=== PATIENT | male | born 1935 | race African-American/Black ===

== ENCOUNTER 2016-06-20 18:25 | Emergency (ER) | payer MEDICARE ==
[~2016-06-20] VITALS: Ht 193 cm; Wt 123.0 kg
[~2016-06-20 18:25] MED LIST: AMLO10 PO; ASPI1TAB69 PO; MEDICAL COMPRES1 MIS; NEUR300C PO
[2016-06-20 18:47] VITALS: BP 208/80; PULSE 77; RESP 18; TEMP 97.7; O2SAT 99
--- NOTE | 2016-06-20 19:22 | PD ---
HPI Chief Complaint: Dizziness Time Seen by Provider: 19:01 Travel History International Travel<30 days: No Contact w/Intl Traveler<30days: No Traveled to known affect area: No History of Present Illness HPI This is a 80-year-old man who presents to the emergency department complaining of ankle swelling and dizziness and some fatigue starting yesterday. He is a history of diabetes hypertension and chronic kidney disease anemia. He went saw his primary doctor for the ankle swelling at the end of April. He had an echocardiogram done today which he reports was "excellent". He states that he called the ambulance as a precaution because of ankle swelling and the dizziness and fatigue related to give blood pressure was elevated and told him that he should come to the emergency department. Review of systems is significant for some shortness of breath last night, now gone today. No chest pain. He otherwise has been feeling generally well and healthy. States she has not had blood work in months. History Past Medical History Narrative Medical Type 2 diabetes Hypertension chronic kidney disease Anemia Tetanus Vaccination: > 5 Years Social History Alcohol Use: No Tobacco Use: No Allergies-Medications (Allergen,Severity, Reaction): Coded Allergies: Lisinopril (Verified Allergy, Severe, 06/20/16) Metformin (Verified Allergy, Severe, 06/20/16) Reported Meds & Prescriptions Reported Meds & Active Scripts Active Norvasc (Amlodipine Besylate) 10 Mg Tab 10 Mg PO DAILY Neurontin (Gabapentin) 300 Mg Cap 300 Mg PO TID Medical Compression Elastic Stockings 1 Mis Mis 1 Ea .ROUTE DIRECTED Reported Aspirin 81 Mg Tabdr 81 Mg PO DAILY Review of Systems Except as stated in HPI: all other systems reviewed are Neg Physical Exam Narrative GENERAL: 80-year-old man, no acute distress. SKIN: Warm and dry. HEAD: Atraumatic. Normocephalic. EYES: Pupils equal and round. No scleral icterus. No injection or drainage. ENT: No nasal bleeding or discharge. Mucous membranes pink and moist. NECK: Trachea midline. No JVD. CARDIOVASCULAR: Regular rate and rhythm. No murmur appreciated. RESPIRATORY: No accessory muscle use. Clear to auscultation. Breath sounds equal bilaterally. GASTROINTESTINAL: Abdomen soft, non-tender, nondistended. Hepatic and splenic margins not palpable. MUSCULOSKELETAL: No obvious deformities. Symmetrical large lower extremities with pitting edema about the ankles. I'm not able to palpate the pulses to the edema but the feet are adequately perfused. NEUROLOGICAL: Awake and alert. No obvious cranial nerve deficits. Motor grossly within normal limits. Normal speech. Data Data Last Documented VS Vital Signs Date Time Temp Pulse Resp B/P Pulse Ox O2 Delivery O2 Flow Rate FiO2 06/20/16 21:12 70 20 191/82 95 Room Air 06/20/16 18:47 97.7 Orders Complete Blood Count With Diff (06/20/16 19:11) Comprehensive Metabolic Panel (06/20/16 19:11) Iv Access Insert/Monitor (06/20/16 19:11) Electrocardiogram (06/20/16 ) Chest, Single Ap (06/20/16 ) Potassium, Serum (K) (06/20/16 20:37) Sodium Polysty Sulfate Liq (Kayexalate L (06/20/16 21:45) Furosemide Inj (Lasix Inj) (06/20/16 21:45) Labs Laboratory Tests Test 06/20/16 06/20/16 15:20 20:45 White Blood Count 8.3 TH/MM3 Red Blood Count 3.52 MIL/MM3 Hemoglobin 10.1 GM/DL Hematocrit 31.4 % Mean Corpuscular Volume 89.3 FL Mean Corpuscular Hemoglobin 28.8 PG Mean Corpuscular Hemoglobin 32.2 % Concent Red Cell Distribution Width 17.1 % Platelet Count 226 TH/MM3 Mean Platelet Volume 7.7 FL Neutrophils (%) (Auto) 64.7 % Lymphocytes (%) (Auto) 15.0 % Monocytes (%) (Auto) 8.8 % Eosinophils (%) (Auto) 11.0 % Basophils (%) (Auto) 0.5 % Neutrophils # (Auto) 5.4 TH/MM3 Lymphocytes # (Auto) 1.2 TH/MM3 Monocytes # (Auto) 0.7 TH/MM3 Eosinophils # (Auto) 0.9 TH/MM3 Basophils # (Auto) 0.0 TH/MM3 CBC Comment DIFF FINAL Differential Comment Sodium Level 140 MEQ/L Potassium Level 6.7 MEQ/L 6.4 MEQ/L Chloride Level 113 MEQ/L Carbon Dioxide Level 20.8 MEQ/L Anion Gap 6 MEQ/L Blood Urea Nitrogen 33 MG/DL Creatinine 2.84 MG/DL Estimat Glomerular Filtration 26 ML/MIN Rate Random Glucose 86 MG/DL Calcium Level 8.2 MG/DL Total Bilirubin 0.2 MG/DL Aspartate Amino Transf 28 U/L (AST/SGOT) Alanine Aminotransferase 25 U/L (ALT/SGPT) Alkaline Phosphatase 134 U/L Total Protein 8.8 GM/DL Albumin 3.5 GM/DL [facility] Medical Decision Making Medical Screen Exam Complete: Yes Emergency Medical Condition: Yes Interpretation(s) Review of EKG: Normal sinus rhythm at a rate of 70, normal axis, MS intervals prolonged at 213, no definite evidence of acute ischemia. LABS: CBC remarkable for mild anemia. CMP remarkable for potassium 6.7, bicarbonate 20.8, BUN and creatinine 33/2.84 Chest x-ray: No acute disease. Differential Diagnosis Renal failure, heart failure, lymphedema, volume overload, other Narrative Course Medical decision making INITIAL: 80-year-old with symmetrical reduction of the edema, history of chronic kidney disease, apparently recent negative echo. Looks well. No orthopnea. No other stigmata of heart failure. We'll check renal function, x- ray, reassess. FINAL: 80 year-old man, worsening lower extremity edema, chronic kidney disease , asymptomatic moderately elevated potassium of 6.4. We'll place patient on Kayexalate, Lasix. There is no EKG changes that would suggest significant hyperkalemia. No other symptoms to suggest severe hyperkalemia. Close outpatient follow-up. We'll discuss with the [facility] teaching service. Patient was offered admission for observation for repeat labs in the morning but states that he preferred a go home and follow-up as an outpatient. He states he can come back in 24-48 hours for repeat labs. Diagnosis Primary Impression: Chronic Renal Failure / insufficiency, unspec Additional Impressions: Lower extremity edema Qualified Code: R60.0 - Bilateral edema of lower extremity Hyperkalemia Additional Instructions: Take Lasix and Kayexalate as prescribed. Follow-up in 24-48 hours for repeat blood work. Return to the emergency department for for any weakness, syncope, change in urination, or any other new or worsening symptoms. Med/Other Pt SpecificInfo: Prescription(s) given Scripts Furosemide (Lasix)40 Mg Tab40 Mg PO DAILY 7 Days Ref 0 Prov:Dario Noguera MD 06/20/16 Sodium Polystyrene Sulfonate Liq (Kayexalate Liq)1 Pow Pow15 Gm PO BID 7 Days Ref 0 Prov:Dario Noguera MD 06/20/16 Disposition: 01 DISCHARGE HOME Condition: Stable Dario Noguera MD Jun 20, 2016 19:22
[2016-06-20 19:43] LABS: AUTOMATED NEUTROPHIL # 5.4 TH/MM3 (1.8-7.7); BASOPHIL % 0.5 % (0.0-2.0); EOSINOPHIL # 0.9 TH/MM3 (0-0.4); HEMATOCRIT 31.4 % (39.0-51.0); HEMO FLAGS DIFF FINAL; LYMPHOCYTE # 1.2 TH/MM3 (1.0-4.8); MEAN CELL VOLUME 89.3 FL (80.0-100.0); MEAN CORPUSCULAR HEMOGLOBIN 28.8 PG (27.0-34.0); MEAN CORPUSCULAR HGB CONC 32.2 % (32.0-36.0); MONO % 8.8 % (0.0-8.0); NEUT % 64.7 % (16.0-70.0); PLATELET COUNT 226 TH/MM3 (150-450); RED BLOOD COUNT 3.52 MIL/MM3 (4.50-5.90); RED CELL DISTRIBUTION WIDTH 17.1 % (11.6-17.2); WHITE BLOOD COUNT 8.3 TH/MM3 (4.0-11.0)
--- NOTE | 2016-06-20 20:00 | RADRPT ---
EXAM DATE/TIME: 06/20/2016 19:46 [facility] COMPARISON: CHEST PA & LAT, June 14, 2012, 18:29. INDICATIONS : Patient had symptoms of high blood pressure this afternoon. MEDICAL HISTORY : Hypertension. Diabetes mellitus type II. SURGICAL HISTORY : None. ENCOUNTER: Initial ACUITY: 1 day PAIN SCORE: 0/10 LOCATION: Bilateral Chest FINDINGS: A single view of the chest demonstrates the lungs to be symmetrically aerated without evidence of mas s, infiltrate or effusion. The cardiomediastinal contours are unremarkable. Osseous structures are intact. There are overlying electrocardiogram leads. CONCLUSION: No acute disease. Pk Sepulveda MD on June 20, 2016 at 19:58 Board Certified Radiologist. This report was verified electronically.
[2016-06-20 20:13] LABS: ALKALINE PHOSPHATASE 134 U/L (45-117); ALT (GPT) 25 U/L (12-78); ANION GAP 6 MEQ/L (5-15); AST (GOT) 28 U/L (15-37); BICARBONATE 20.8 MEQ/L (21.0-32.0); BLOOD UREA NITROGEN 33 MG/DL (7-18); CHLORIDE 113 MEQ/L (98-107); GLOMERULAR FILTRATION RATE 26 ML/MIN (>89); SODIUM (NA) 140 MEQ/L (136-145); TOTAL BILIRUBIN ADULT 0.2 MG/DL (0.2-1.0)
[2016-06-20 20:17] LABS: POTASSIUM 6.7 MEQ/L (3.5-5.1)
[2016-06-20 21:12] VITALS: BP 191/82; PULSE 70; RESP 20; O2SAT 95
[2016-06-20] MEDS ORDERED: SODIUM POLYSTYRENE SULFONATE SUSP 15 GM/60 ML CUP PO ONE (21:45)
[2016-06-20] MEDS ORDERED: FUROSEMIDE 40 MG/4 ML VIAL IV PUSH ONE (21:45)
[2016-06-20] MEDS ORDERED: KAYEPOW PO (22:03)
[2016-06-20] MEDS ORDERED: FURO1TAB60 PO (22:03)
[2016-06-20 22:29] VITALS: BP 197/86
--- NOTE | 2016-06-21 17:45 | EKG ---
Date Performed: 06/20/2016 Time Performed: 19:30:02 PTAGE: 80 years EKG: Sinus rhythm WITH FIRST DEGREE AV BLOCK NONSPECIFIC T-WAVE ABNORMALITY When compared to previous tracing, heart r ate has increased. There is significant baseline artifact which makes precise rhythm Diagnosis diffic ult recommend repeat EKG with a clear baseline. ABNORMAL ECG PREVIOUS TRACING : 06/15/2012 05.59 DOCTOR: Aftab Rizvi Interpretating Date/Time 06/21/2016 17:44:09
[2016-06-25] MEDS ORDERED: FURO1TAB60 PO (15:42)
== END 2016-06-20 22:46 | disposition home or self-care (01) ==
LOC: NEPE 18:25
DX: I12.9 Hypertensive chronic kidney disease with stage 1 through stage 4 chronic kidney disease, or unspecified chronic kidney disease (principal); N18.9 Chronic kidney disease, unspecified; R60.0 Localized edema; E87.5 Hyperkalemia; E11.9 Type 2 diabetes mellitus without complications; I44.0 Atrioventricular block, first degree; R94.31 Abnormal electrocardiogram [ECG] [EKG]
CPT/HCPCS: 71010; 80053; 84132; 85025; 93005; 96374; 99284; J1940

== ENCOUNTER → 2016-06-25 | Outpatient (CLI) | payer MEDICARE ==
[~2016-06-25] MED LIST changes: +CALC.25 PO; +CALC500C16 CHEW; +CALC667C PO; +CALG500 PO; +FURO1TAB60 PO; +FURO20TA PO; +GABA100C4 PO; +HYDR25TA35 PO; +KAYEPOW PO; +MAGN400T2 PO; +MAGN400T3 PO; +OSCA200T PO; +POTA20TA5 PO
[2016-06-25 15:07] LABS: BICARBONATE 23.4 MEQ/L (21.0-32.0); POTASSIUM 3.4 MEQ/L (3.5-5.1)
== END ==
LOC: CLAB 14:09
PROVIDERS: ATTEND Family Medicine
DX: E87.5 Hyperkalemia (principal); E87.8 Other disorders of electrolyte and fluid balance, not elsewhere classified; R60.0 Localized edema
CPT/HCPCS: 36415; 80048

== ENCOUNTER 2016-06-27 10:59 | Inpatient (IN) | payer MEDICARE ==
[~2016-06-27] VITALS: Ht 193 cm; Wt 120.0 kg
[~2016-06-27 10:59] MED LIST changes: -CALC.25 PO; -CALC500C16 CHEW; -CALC667C PO; -CALG500 PO; -FURO20TA PO; -GABA100C4 PO; -HYDR25TA35 PO; -KAYEPOW PO; -MAGN400T2 PO; -MAGN400T3 PO; -OSCA200T PO; -POTA20TA5 PO
[2016-06-27 11:10] VITALS: BP 169/68; PULSE 78; RESP 18; TEMP 98.1; O2SAT 98
[2016-06-27] MEDS ORDERED: SODIUM CHLORID 0.9% 500 ML INJ 500 ML IV ONE (11:30)
[2016-06-27] MEDS ORDERED: ONDANSETRON HCL 4 MG/2 ML VIAL IV PUSH ONE (11:30)
[2016-06-27] MEDS ORDERED: SODIUM CHLORIDE 0.9% FLUSH 5 ML FLUSH IVF PRN (11:30)
[2016-06-27] MEDS ORDERED: MORPHINE SULFATE 4 MG/ML INJ IV PUSH ONE (11:30)
--- NOTE | 2016-06-27 11:47 | PD ---
HPI Chief Complaint: General Weakness Time Seen by Provider: 11:34 Travel History International Travel<30 days: No Contact w/Intl Traveler<30days: No Traveled to known affect area: No History of Present Illness HPI Patient comes in complaint of generalized weakness, dizziness, and fall. Patient states he woke up this morning felt week went to walk to the bathroom started feeling dizzy went to sit down on his scooter walker when he missed landing on his right shoulder. Patient is uncertain if he hit his head. Denies any loss of consciousness, chest pain, palpitations, shortness of breath , numbness or tingling anywhere, or abdominal pain. Patient states that he saw his primary care doctor yesterday and was feeling fine, but is not drinking that much fluid as instructed. Patient reports that we will he's had achiness in his right shoulder and since the fall pains become much worse. Pain radiates distally is worse with movement. Patient denies anything making it better other than not moving it. PFSH Past Medical History Autoimmune Disease: No Cancer: No Cardiovascular Problems: No Diabetes: Yes (TYPE 2) Patient Takes Glucophage: No Diminished Hearing: Yes Endocrine: Yes ( STOPPED METAFORMIN LONG TIME AGO) Genitourinary: Yes Hypertension: Yes Immune Disorder: No Musculoskeletal: No Neurologic: No Psychiatric: No Respiratory: No Renal Failure: Yes Past Surgical History Surgical History: No Previous Surgery Social History Alcohol Use: No Tobacco Use: No Substance Use: No Allergies-Medications (Allergen,Severity, Reaction): Coded Allergies: Lisinopril (Verified Allergy, Severe, 06/27/16) Metformin (Verified Allergy, Severe, 06/27/16) Reported Meds & Prescriptions Reported Meds & Active Scripts Active Lasix (Furosemide) 40 Mg Tab 40 Mg PO DAILY Norvasc (Amlodipine Besylate) 10 Mg Tab 10 Mg PO DAILY Neurontin (Gabapentin) 300 Mg Cap 300 Mg PO TID Medical Compression Elastic Stockings 1 Mis Mis 1 Ea .ROUTE DIRECTED Reported Aspirin 81 Mg Tabdr 81 Mg PO DAILY Review of Systems Except as stated in HPI: all other systems reviewed are Neg Physical Exam Narrative GENERAL: Well-developed, overly nourished, in no acute distress, and non-ill appearing. SKIN: Warm and dry. HEAD: Atraumatic. Normocephalic. EYES: Pupils equal and round. EOMI. No scleral icterus. No injection or drainage. ENT: No nasal bleeding or discharge. Mucous membranes pink and moist. NECK: Trachea midline. Supple. No nuclear rigidity. CARDIOVASCULAR: Regular rate and rhythm. No murmur appreciated. Radial pulses 2+ intact bilaterally. RESPIRATORY: No accessory muscle use. No respiratory distress. Clear to auscultation. Breath sounds equal bilaterally. GASTROINTESTINAL: Abdomen soft, non-tender, nondistended. Hepatic and splenic margins not palpable. No pulsatile mass. MUSCULOSKELETAL: Questionable deformity right shoulder for possible dislocation versus fracture versus muscle spasm. No clubbing. No cyanosis. 3+ edema bilateral lower extremity. Decreased range of motion right shoulder secondary to pain. Shoulder: Sensation equal BL deltoid muscles. Pulses equal BL distal to injury. Capillary refill less than 2 seconds distal to injury and equal BL. FROM distal to injury and equal BL. Strength distal to injury equal BL. NV intact distal to injury equal BL. Flexion and extension of thumb equal BL. Equal strength and movement with abduction/adductions of BL fingers. Bottom Finisher strength equal BL. NEUROLOGICAL: Awake and alert. No obvious cranial nerve deficits. Motor grossly within normal limits. Normal speech. PSYCHIATRIC: Appropriate mood and affect; insight and judgment normal. Data Data Last Documented VS Vital Signs Date Time Temp Pulse Resp B/P Pulse Ox O2 Delivery O2 Flow Rate FiO2 06/27/16 12:31 18 96 Room Air 06/27/16 11:10 98.1 78 169/68 Orders Electrocardiogram (06/27/16 11:26) Complete Blood Count With Diff (06/27/16 11:26) Comprehensive Metabolic Panel (06/27/16 11:26) Ckmb (Isoenzyme) Profile (06/27/16 11:26) Troponin I (06/27/16 11:26) Act Partial Throm Time (Ptt) (06/27/16 11:26) Prothrombin Time / Inr (Pt) (06/27/16 11:26) Urinalysis - C+S If Indicated (06/27/16 11:26) Chest, Single Ap (06/27/16 11:26) Ct Brain W/O Iv Contrast(Rout) (06/27/16 11:26) Ct Cerv Spine W/O Contrast (06/27/16 11:26) Ecg Monitoring (06/27/16 11:26) Iv Access Insert/Monitor (06/27/16 11:26) Oximetry (06/27/16 11:26) Sodium Chloride 0.9% Flush (Ns Flush) (06/27/16 11:30) Orthostatic Vital Signs (06/27/16 11:26) Shoulder, Complete (>2vws) (06/27/16 ) Sodium Chlorid 0.9% 500 Ml Inj (Ns 500 M (06/27/16 11:30) Morphine Inj (Morphine Inj) (06/27/16 11:30) Ondansetron Inj (Zofran Inj) (06/27/16 11:30) B-Type Natriuretic Peptide (06/27/16 11:55) Magnesium (Mg) (06/27/16 11:55) CKMB (06/27/16 11:50) CKMB% (06/27/16 11:50) Ns + Kcl 20 Meq Inj (Ns + Kcl 20 Meq Inj (06/27/16 12:45) Calcium Gluconate Inj (Calcium Gluconate (06/27/16 12:45) Consult Vascular Access Team (06/27/16 ) Vascular Poc Ultrasound (06/27/16 ) Support Splint (06/27/16 14:06) Admit Order (Ed Use Only) (06/27/16 14:49) Labs Laboratory Tests Test 06/27/16 06/27/16 11:50 12:45 White Blood Count 15.7 TH/MM3 Red Blood Count 3.26 MIL/MM3 Hemoglobin 9.4 GM/DL Hematocrit 29.6 % Mean Corpuscular Volume 91.0 FL Mean Corpuscular Hemoglobin 29.0 PG Mean Corpuscular Hemoglobin 31.8 % Concent Red Cell Distribution Width 16.5 % Platelet Count 173 TH/MM3 Mean Platelet Volume 8.0 FL Neutrophils (%) (Auto) 78.7 % Lymphocytes (%) (Auto) 5.2 % Monocytes (%) (Auto) 15.5 % Eosinophils (%) (Auto) 0.3 % Basophils (%) (Auto) 0.3 % Neutrophils # (Auto) 12.4 TH/MM3 Lymphocytes # (Auto) 0.8 TH/MM3 Monocytes # (Auto) 2.4 TH/MM3 Eosinophils # (Auto) 0.1 TH/MM3 Basophils # (Auto) 0.0 TH/MM3 CBC Comment AUTO DIFF Differential Comment AUTO DIFF CONFIRMED Platelet Estimate NORMAL Platelet Morphology Comment NORMAL Sodium Level 140 MEQ/L Potassium Level 3.0 MEQ/L Chloride Level 109 MEQ/L Carbon Dioxide Level 17.6 MEQ/L Anion Gap 13 MEQ/L Blood Urea Nitrogen 40 MG/DL Creatinine 3.24 MG/DL Estimat Glomerular Filtration 22 ML/MIN Rate Random Glucose 106 MG/DL Calcium Level 6.8 MG/DL Protein Corrected Calcium 6.6 MG/DL Total Bilirubin 0.5 MG/DL Aspartate Amino Transf 31 U/L (AST/SGOT) Alanine Aminotransferase 24 U/L (ALT/SGPT) Alkaline Phosphatase 83 U/L Total Creatine Kinase 882 U/L Creatine Kinase MB 8.2 NG/ML Creatine Kinase MB % 0.9 % Troponin I LESS THAN 0.02 NG/ML Total Protein 7.7 GM/DL Albumin 3.0 GM/DL Prothrombin Time 12.9 SEC Prothromb Time International 1.2 RATIO Ratio Activated Partial 22.6 SEC Thromboplast Time MDM Medical Decision Making Medical Screen Exam Complete: Yes Emergency Medical Condition: Yes Medical Record Reviewed: Yes Interpretation(s) EKG reviewed by Dr. Dumont, shows sinus rhythm with a ventricular rate of 79. No STEMI. Differential Diagnosis Arrhythmia, acute coronary syndrome, vertigo, electrolyte abnormality, CHF exacerbation, acute on chronic renal failure, dehydration, dislocation, fracture , contusion, other Narrative Course Patient's exam. Initial laboratory neurological status were obtained and reviewed. Discussed patient with Dr. Jimenez, who saw and evaluated the patient and is in agreement with plan of care and disposition. Discussed all findings and plan care of patient, who is agreeable for admission. All questions were answered. Physician Communication Physician Communication [id number] Alejandro, who is agreeable to admit the patient for Dr. Mcgill. Diagnosis Primary Impression: Generalized weakness Additional Impressions: Dizziness Electrolyte abnormality Chronic Renal Failure / insufficiency, unspec Fall Qualified Code: W19.XXXA - Fall, initial encounter Right shoulder pain Qualified Code: M25.511 - Acute pain of right shoulder Admitting Information Admitting Physician Requests: Admit Condition: Stable Juno Quick Jun 27, 2016 11:46
[2016-06-27 12:21] LABS: AUTOMATED NEUTROPHIL # 12.4 TH/MM3 (1.8-7.7); BASOPHIL % 0.3 % (0.0-2.0); EOSINOPHIL # 0.1 TH/MM3 (0-0.4); EOSINOPHIL % 0.3 % (0.0-4.0); HEMATOCRIT 29.6 % (39.0-51.0); LYMPH % 5.2 % (9.0-44.0); LYMPHOCYTE # 0.8 TH/MM3 (1.0-4.8); MEAN CORPUSCULAR HGB CONC 31.8 % (32.0-36.0); MONO % 15.5 % (0.0-8.0); NEUT % 78.7 % (16.0-70.0); PLATELET COUNT 173 TH/MM3 (150-450); RED BLOOD COUNT 3.26 MIL/MM3 (4.50-5.90); RED CELL DISTRIBUTION WIDTH 16.5 % (11.6-17.2); WHITE BLOOD COUNT 15.7 TH/MM3 (4.0-11.0)
[2016-06-27 12:24] LABS: HEMO FLAGS AUTO DIFF
[2016-06-27 12:30] LABS: ALKALINE PHOSPHATASE 83 U/L (45-117); ALT (GPT) 24 U/L (12-78); ANION GAP 13 MEQ/L (5-15); AST (GOT) 31 U/L (15-37); BICARBONATE 17.6 MEQ/L (21.0-32.0); BLOOD UREA NITROGEN 40 MG/DL (7-18); CHLORIDE 109 MEQ/L (98-107); CREATINE KINASE 882 U/L (39-308); GLOMERULAR FILTRATION RATE 22 ML/MIN (>89); SODIUM (NA) 140 MEQ/L (136-145); TOTAL BILIRUBIN ADULT 0.5 MG/DL (0.2-1.0)
[2016-06-27 12:31] VITALS: RESP 18; O2SAT 96
[2016-06-27 12:34] LABS: CALCIUM-PROTEIN CORRECTED 6.6 MG/DL (8.5-10.1)
[2016-06-27] MEDS ORDERED: CALCIUM GLUCONATE INJ 2 GM in DEXTROSE 5% IN WATER 100ML INJ 100 ML IV ONE ×2 (12:45)
[2016-06-27] MEDS ORDERED: NS + KCL 20 MEQ INJ 1,000 ML IV ONE (12:45)
--- NOTE | 2016-06-27 12:49 | RADRPT ---
EXAM DATE/TIME: 06/27/2016 12:09 [facility] COMPARISON: No previous studies available for comparison. INDICATIONS : Woke up dizzy,weak right arm pain patient had a fall today. RADIATION DOSE: 21.25 CTDIvol (mGy) MEDICAL HISTORY : Hypertension. Renal insufficiency. Diabetes mellitus type 1. SURGICAL HISTORY : None. ENCOUNTER: Initial ACUITY: 1 day PAIN SCALE: 3/10 LOCATION: Right shoulder TECHNIQUE: Volumetric scanning of the cervical spine was performed. Multiplanar reconstructions i n the sagittal, coronal and oblique axial planes were performed. Using automated exposure control a nd adjustment of the mA and/or kV according to patient size, radiation dose was kept as low as reason ably achievable to obtain optimal diagnostic quality images. FINDINGS: Alignment: Reversal of normal lordosis is noted. The craniocervical and cervical vertebral body alignment is oth erwise well preserved without evidence of listhesis. Osseous structures and facet joints: Vertebral bodies and posterior elements are intact. There is no evidence of acute fracture or subluxa tion. Intervertebral disc spaces: Degenerative disc disease ranging from mild to moderate is identified. C2-3: Unremarkable. C3-4: Mild degenerative disc disease with posterior central disc protrusion causing mild to moderate epidural effacement and central spinal stenosis. Focal calcification is seen along the posterior edward clyde indicating chronic disease. C4-5: Mild/moderate degenerative disc disease with posterior disc osteophyte complex. There is mild i ntradural effacement. There is no significant spinal stenosis. C5-6: Moderate degenerative disc disease with marginal spondylosis and mild posterior annular broad-b ased protrusion. There is [id number] epidural effacement and mild spinal stenosis. C6-7: Moderate degenerative disc disease with asymmetric disc space narrowing and marginal spondylosi s. There is no evidence of significant epidural effacement or disc herniation. C7-T1: Unremarkable. Neurologic structures: Anterior epidural effacement at C3-4 and C5-6 resulting in mild spinal stenosis. Otherwise no significant compression of the spinal cord. CONCLUSION: Degenerative disc disease with spondylosis at C3-4, C4-5, C5-6 and C6-7. Mild spinal stenosis C3-4 and C5-6 from marginal spurring and mild disc protrusion. No acute abnormalities noted. Sam Leal MD on June 27, 2016 at 12:40 Board Certified Radiologist. This report was verified electronically.
--- NOTE | 2016-06-27 12:53 | RADRPT ---
EXAM DATE/TIME: 06/27/2016 12:09 [facility] COMPARISON: No previous studies available for comparison. INDICATIONS : Paitient woke up weak and dizzy right arm pain,paitent fell today. RADIATION DOSE: 41.62 CTDIvol (mGy) MEDICAL HISTORY : Hypertension. Renal failure, chronic. Diabetes SURGICAL HISTORY : None. ENCOUNTER: Initial ACUITY: 1 day PAIN SCALE: 3/10 LOCATION: cranial TECHNIQUE: Multiple contiguous axial images were obtained of the head. Using automated exposure control and adjustment of the mA and/or kV according to patient size, radiation dose was kept as low as reasonably achievable to obtain optimal diagnostic quality images. FINDINGS: CEREBRUM: The ventricles are normal for age. No evidence of midline shift, mass lesion, hemorrha ge or acute infarction. No extra-axial fluid collections are seen. POSTERIOR FOSSA: The cerebellum and brainstem are intact. The 4th ventricle is midline. The cer ebellopontine angle is unremarkable. EXTRACRANIAL: The visualized portion of the orbits is intact. SKULL: The calvaria is intact. No evidence of skull fracture. CONCLUSION: Negative for an acute process Jovani Virgen MD FACR on June 27, 2016 at 12:48 Board Certified Radiologist. This report was verified electronically.
[2016-06-27 12:55] LABS: CKMB 8.2 NG/ML (0.5-3.6)
[2016-06-27 13:00] LABS: PLATELET ESTIMATE SMEAR NORMAL (NORMAL); PLATELET MORPHOLOGY NORMAL (NORMAL); SCAN/DIFF AUTO DIFF CONFIRMED
[2016-06-27 13:00] LABS: APTT (PATIENT) 22.6 SEC (24.3-30.1); INTERNATIONAL NORMALIZED RATIO 1.2 RATIO; PROTHROMBIN TIME - PATIENT 12.9 SEC (9.8-11.6)
--- NOTE | 2016-06-27 14:01 | RADRPT ---
EXAM DATE/TIME: 06/27/2016 13:37 [facility] COMPARISON: CHEST SINGLE AP, June 20, 2016, 19:46. INDICATIONS : Syncope. MEDICAL HISTORY : None. SURGICAL HISTORY : None. ENCOUNTER: Initial ACUITY: 1 day PAIN SCORE: 0/10 LOCATION: Bilateral chest FINDINGS: A single view of the chest demonstrates the lungs to be symmetrically aerated without evidence of mas s, infiltrate or effusion. The cardiomediastinal contours are unremarkable. Osseous structures are intact. CONCLUSION: No acute disease. Jovani Virgen MD FACR on June 27, 2016 at 14:00 Board Certified Radiologist. This report was verified electronically.
--- NOTE | 2016-06-27 14:04 | RADRPT ---
EXAM DATE/TIME: 06/27/2016 13:40 [facility] COMPARISON: No previous studies available for comparison. INDICATIONS : Right shoulder pain after fall. MEDICAL HISTORY : Hypertension. Diabetes mellitus type II. SURGICAL HISTORY : None. ENCOUNTER: Initial ACUITY: 1 day PAIN SCORE: 4/10 LOCATION: Right Shoulder. FINDINGS: There are degenerative changes evident at the acromioclavicular joint. There is mild subacromial spu rring present. Alignment is anatomic. Fractures are appreciated. CONCLUSION: Degenerative changes. Fracture is not appreciated. Jovani Virgen MD FACR on June 27, 2016 at 14:00 Board Certified Radiologist. This report was verified electronically.
--- NOTE | 2016-06-27 16:07 | HHI.HP ---
[facility] Service Family Medicine Primary Care Physician Debbie Cevallos R1 MD Javon Admission Diagnosis generalized weakness, dizziness, electrolyte abnormality, Diagnoses: International Travel<30 Days: No Contact w/Intl Traveler<30days: No Known Affected Area: No History of Present Illness Pt is a 80 yo man with a h/o CKD, hyperkalemia, and BL LE edema, who was in his normal state of health until yesterday afternoon when he started to "feel funny. " Pt laid down and went to sleep. He got up in the morning to go to the bathroom. As he was transferring from bed to standing, he felt lightheaded, presyncopal. As he was walking to the bathroom, he stumbled and fell on/over a chair. He reports that his legs felt weak, like he lost control of them. As a result, he couldn't get up. Fell on right arm, which currently hurts. He reports that he was down on the ground for 45 minutes until he was able to crawl to phone and call 911. He has never experienced anything like this before. Pt denies any muscle spasms, syncope, seizure, fever, dysuria, cough, skin breakdown. He endorses fatigue. Pt denies blood in urine, but endorses a weak urine stream. Pt reports 6 months of LE swelling, which is mostly staying the same. (Pk Gallagher MD R1) Review of Systems Constitutional: COMPLAINS OF: Fatigue, Chills (cold all the time for about a year. ), Dizziness (little with standing. ), DENIES: Fever Eyes: COMPLAINS OF: Blurred vision Ears, nose, mouth, throat: DENIES: Nasal discharge, Throat pain Respiratory: DENIES: Cough, Shortness of breath Cardiovascular: COMPLAINS OF: Dyspnea on Exertion (doesn't walk much), Lower Extremity Edema, DENIES: Chest pain (occasional tightness), Palpitations, Syncope, PND, Orthopnea Gastrointestinal: DENIES: Abdominal pain, Black stools, Bloody stools, Constipation, Diarrhea, Nausea, Vomiting Genitourinary: DENIES: Hematuria, Dysuria Musculoskeletal: COMPLAINS OF: Muscle aches (right arm), DENIES: Joint pain Integumentary: DENIES: Rash (dry scaling skin on lateral legs) Neurologic: COMPLAINS OF: Localized weakness (both legs with walking), DENIES : Headache, Seizures, Tremor (Pk Gallagher MD R1) Past Family Social History Past Medical History - HTN - well controlled - T2DM - well controlled - idiopathic CKD diagnosed about 4 years ago - no lead architect. - Anemia Past Surgical History Pt denies any previous surgeries Reported Medications Reported Meds & Active Scripts Active Lasix (Furosemide) 40 Mg Tab 40 Mg PO DAILY Norvasc (Amlodipine Besylate) 10 Mg Tab 10 Mg PO DAILY been taking for 2-3 years. Neurontin (Gabapentin) 300 Mg Cap 300 Mg PO TID Medical Compression Elastic Stockings 1 Mis Mis 1 Ea .ROUTE DIRECTED Reported Aspirin 81 Mg Tabdr 81 Mg PO DAILY (Pk Gallagher MD R1) Allergies: Coded Allergies: Lisinopril (Verified Allergy, Severe, 06/27/16) Metformin (Verified Allergy, Severe, 06/27/16) Active Ordered Medications Current Medications Medications (Trade) Dose Ordered Sig/Carol Route Start Time Stop Time Status Last Admin (NS Flush) 2 ml UNSCH PRN FLUSH 06/27/16 16:45 (NS Flush) 2 ml BID FLUSH 06/27/16 21:00 06/27/16 20:56 (Tylenol) 650 mg Q4H PRN PO 06/27/16 16:45 (Zofran Inj) 4 mg Q6H PRN IVP 06/27/16 16:45 (Milk Of Magnesia Liq) 30 ml Q12H PRN PO 06/27/16 16:45 (Heparin Inj) 5,000 units Q12H SQ 06/27/16 17:00 06/27/16 18:44 (Narcan Inj) 0.4 mg UNSCH PRN IV 06/27/16 16:45 (Ecotrin Ec) 81 mg DAILY PO 06/28/16 09:00 (D50w (Vial) Inj) 25 ml UNSCH PRN IV PUSH 06/27/16 17:00 (Glucagon Inj) 1 mg UNSCH PRN OTHER 06/27/16 17:00 (Catapres) 0.1 mg Q6H PRN PO 06/27/16 17:00 (Calcium Gluconate) 500 mg DAILY PO 06/28/16 09:00 Family History Pt reports that his parents from old age Social History Pt lives at home alone. Originally from [place]. 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 Smoked about 1ppd of cigarettes for about 10 yrs about 50 years ago. Denies current tobacco use, alcohol, or illicit drug use. (Pk Gallagher MD R1) Physical Exam Vital Signs Vital Signs Date Time Temp Pulse Resp B/P Pulse Ox O2 Delivery O2 Flow Rate FiO2 06/27/16 12:31 18 96 Room Air 06/27/16 11:19 97 Room Air 06/27/16 11:10 98.1 78 18 169/68 98 Physical Exam GENERAL: male lying in bed in NAD. SKIN: hyperkeratotic hyperpigmented lesions present over knuckles of both hands , and on lateral aspect of bilateral lower extremities HEAD: Atraumatic. Normocephalic. EYES: Pupils equal round and reactive. Extraocular motions intact. No scleral icterus. No injection or drainage. ENT: + Tongue fasciculations. MMM. poor dentition. no erythema noted. Airway patent. NECK: Trachea midline. Supple, nontender, no meningeal signs. No thyromegaly appreciated. CARDIOVASCULAR: Regular rate and rhythm without murmurs, gallops, or rubs. No JVD. RESPIRATORY: Symmetric, unlabored respirations. Clear to auscultation. Breath sounds equal bilaterally. No wheezes, rales, or rhonchi. GASTROINTESTINAL: Abdomen soft, non-tender, nondistended. MUSCULOSKELETAL: 2+ non pitting edema to knees of bilateral lower extremities. No foot ulcers. Skin findings as above. NEUROLOGICAL: Awake and alert. CN's intact. No pronator drift. Finger to nose test within normal limits. Motor and sensory within normal limits. 5/5 UE strength, 4/5 strength of hip flexors. Follows commands. Cognitively sharp. Moves all extremities. Negative Chvostek's sign. Laboratory Laboratory Tests Test 06/27/16 06/27/16 11:50 12:45 White Blood Count 15.7 Red Blood Count 3.26 Hemoglobin 9.4 Hematocrit 29.6 Mean Corpuscular Volume 91.0 Mean Corpuscular Hemoglobin 29.0 Mean Corpuscular Hemoglobin 31.8 Concent Red Cell Distribution Width 16.5 Platelet Count 173 Mean Platelet Volume 8.0 Neutrophils (%) (Auto) 78.7 Lymphocytes (%) (Auto) 5.2 Monocytes (%) (Auto) 15.5 Eosinophils (%) (Auto) 0.3 Basophils (%) (Auto) 0.3 Neutrophils # (Auto) 12.4 Lymphocytes # (Auto) 0.8 Monocytes # (Auto) 2.4 Eosinophils # (Auto) 0.1 Basophils # (Auto) 0.0 CBC Comment AUTO DIFF Differential Comment AUTO DIFF CONFIRMED Platelet Estimate NORMAL Platelet Morphology Comment NORMAL Sodium Level 140 Potassium Level 3.0 Chloride Level 109 Carbon Dioxide Level 17.6 Anion Gap 13 Blood Urea Nitrogen 40 Creatinine 3.24 Estimat Glomerular Filtration 22 Rate Random Glucose 106 Calcium Level 6.8 Protein Corrected Calcium 6.6 Total Bilirubin 0.5 Aspartate Amino Transf 31 (AST/SGOT) Alanine Aminotransferase 24 (ALT/SGPT) Alkaline Phosphatase 83 Total Creatine Kinase 882 Creatine Kinase MB 8.2 Creatine Kinase MB % 0.9 Troponin I LESS THAN 0.02 Total Protein 7.7 Albumin 3.0 Prothrombin Time 12.9 Prothromb Time International 1.2 Ratio Activated Partial 22.6 Thromboplast Time (Pk Gallagher MD R1) Result Diagram: 06/27/16 1150 06/27/16 1150 Imaging Last Impressions Head CT 06/27/16 1126 Signed Impressions: Service Date/Time: Monday, June 27, 2016 12:09 - CONCLUSION: Negative for an acute process Jovani Virgen MD FACR Chest X-Ray 06/27/16 1126 Signed Impressions: Service Date/Time: Monday, June 27, 2016 13:37 - CONCLUSION: No acute disease. 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 Mild spinal stenosis C3-4 and C5-6 from marginal spurring and mild disc protrusion. No acute abnormalities noted. Sam Leal MD Shoulder X-Ray 06/27/16 0000 Signed Impressions: Service Date/Time: Monday, June 27, 2016 13:40 - CONCLUSION: Degenerative changes. Fracture is not appreciated. Jovani Virgen MD FACR Course In the emergency department, patient received Zofran 4 mg IV push 1, morphine 2 mg IV push 1, normal saline IV bolus 1, shoulder x-ray, Ortho-Cyclen vital signs, CT cervical spine without contrast, CT brain without contrast, chest x- ray, UA, PT/INR, APTT, troponin, CK-MB, CMP, CBC, EKG, magnesium, BNP, calcium gluconate 2 g IV 1, normal saline plus KCl 20 mEq IV 1, IV access by vascular access team, support sling for right arm (Pk Gallagher MD R1) Assessment and Plan Assessment and Plan 80-year-old man with a history of chronic kidney disease presents with generalized weakness and labs concerning for electrolyte abnormalities. Will place in observation for electrolyte repletion and nephrology consult and cardiac workup. Code Status Full code Discussed Condition With Patient seen and discussed with Dr. Sandoval. (Pk Gallagher MD R1) Attending Attestation THIS CASE WAS DISCUSSED WITH THE RESIDENT PHYSICIAN. I HAVE REVIEWED THE RECORD AND AGREE WITH THE ABOVE NOTE AND PLAN OF CARE WAS DISCUSSED. I HAVE AUTHORIZED THE ORDER FOR PLACEMENT IN OUT-PATIENT OBSERVATION STATUS. (Thomas Mcgill MD) Problem List: (1) Generalized weakness Status: Acute Plan: 80-year-old male with a history of chronic kidney disease presents with generalized weakness and electrolyte abnormalities. Patient has potassium of 3.0 , calcium of 6.8, protein corrected calcium is 6.6, magnesium of 1.4. Patient received calcium gluconate 2 g IV 1 and normal saline plus KCl 20 mEq IV 1 in the emergency department. Placement observation Consult nephrology Renal diet Orthostatic vital signs Monitor vital signs athletic monitor/telemetry Look for signs of infection including UA and CXR BNP, CBC, CMP, magnesium, PTH, 1, 25 dihydroxy vitamin D Calcium gluconate 500 mg by mouth daily Magnesium oxide 400 mg by mouth 1 Symptom control: Zofran 4 mg IV push every 6 hours when necessary for nausea or vomiting Tylenol 650 mg by mouth every 4 hours when necessary for pain, fever, irritability Magnesium hydroxide, milk of magnesia 30 mL by mouth every 12 hours when necessary for constipation (2) Chronic Renal Failure / insufficiency, unspec Status: Chronic Plan: Patient with a history of CKD has never seen a lead architect. Currently presenting with electrolyte abnormalities likely causing generalized weakness. Nephrology consult (3) Leg edema Status: Acute Plan: Patient presented 6 months of lower extremity edema. Echocardiogram Holding home amlodipine (4) Essential hypertension Status: Chronic Plan: Patient on blood pressure medication for the past few years. Holding home amlodipine because of lower extremity edema Holding home Lasix because patient likely dehydrated and because this medication is potentially nephrotoxic Clonidine 0.1 mg by mouth every 6 hours when necessary for blood pressure over 160/90 (5) Diabetes mellitus type 2 in nonobese Status: Chronic Plan: Patient reports a history of diabetes but is not on any home medications to control his blood sugar. Holding home gabapentin because the serum concentration of this medication can become elevated and chronic kidney disease, and the most common adverse effect of this medication is LINING BRUSHER dizziness, drowsiness, ataxia, fatigue and second most common adverse effect is peripheral edema (6) Nutrition, metabolism, and development symptoms Status: Acute Plan: Fluids: Patient received calcium gluconate 2 g IV 1 and normal saline plus KCl 20 mEq IV 1 in the emergency department. Electrolytes: Monitor and replete as above Nutrition: Renal diet (7) No contraindication to deep vein thrombosis (DVT) prophylaxis Status: Acute Plan: Heparin 5000 units subcutaneous every 12 hours (Pk Gallagher MD R1) Pk Gallagher MD R1 Jun 27, 2016 16:07 Thomas Mcgill MD Jun 28, 2016 11:49
[2016-06-27] MEDS ORDERED: MAGNESIUM HYDROXIDE SUSP 30 ML CUP PO PRN (16:45)
[2016-06-27] MEDS ORDERED: ONDANSETRON HCL 4 MG/2 ML VIAL IVP PRN (16:45)
[2016-06-27] MEDS ORDERED: ACETAMINOPHEN 325 MG TAB PO PRN (16:45)
[2016-06-27] MEDS ORDERED: NALOXONE HCL 0.4 MG/ML AMP IV PRN (16:45)
[2016-06-27] MEDS ORDERED: SODIUM CHLORIDE 0.9% FLUSH 5 ML FLUSH FLUSH PRN (16:45)
[2016-06-27] MEDS ORDERED: cloNIDine HCL 0.1 MG TAB PO PRN (17:00)
[2016-06-27] MEDS ORDERED: GLUCAGON 1 MG/ML VIAL OTHER PRN (17:00)
[2016-06-27] MEDS ORDERED: MAGNESIUM OXIDE 400 MG TAB PO ONE (17:00)
[2016-06-27] MEDS ORDERED: DEXTROSE 50% IN WATER 50 ML VIAL(D50) IV PUSH PRN (17:00)
--- NOTE | 2016-06-27 17:10 | PD ---
Physical Exam Date Seen by Provider: Jun 27, 2016 Time Seen by Provider: 15:00 Narrative I, Dr. Jimenez, have reviewed the advance practice practitioner's documentation and am in agreement, met with the patient face to face, made the diagnosis, and the medical decision making was done by me. *My assessment and Findings: Patient seen and evaluated with PA, please see PA for further information. Patient appears to be doing badly at home, frequent falls, fell on his shoulder today, complaining of right shoulder pain. On exam , he appears to be fatigued, bilateral leg swelling, tender to palpation in the right shoulder with decreased range of motion of the right shoulder. Pulmonary and cardiac exam unremarkable. X-rays and CAT scans did not reveal any signs of acute injuries. Lab work shows significant electrolyte abnormalities. At this point, patient is doing poorly at home, feeling to thrive, planning to admit for further treatment. IV Flagyl at placement was ordered for the patient. Case is discussed with family practice residents for admission. Laboratory Tests Test 06/27/16 06/27/16 11:50 12:45 White Blood Count 15.7 TH/MM3 (4.0-11.0) Red Blood Count 3.26 MIL/MM3 (4.50-5.90) Hemoglobin 9.4 GM/DL (13.0-17.0) Hematocrit 29.6 % (39.0-51.0) Mean Corpuscular Hemoglobin 31.8 % Concent (32.0-36.0) Neutrophils (%) (Auto) 78.7 % (16.0-70.0) Lymphocytes (%) (Auto) 5.2 % (9.0-44.0) Monocytes (%) (Auto) 15.5 % (0.0-8.0) Neutrophils # (Auto) 12.4 TH/MM3 (1.8-7.7) Lymphocytes # (Auto) 0.8 TH/MM3 (1.0-4.8) Monocytes # (Auto) 2.4 TH/MM3 (0-0.9) Potassium Level 3.0 MEQ/L (3.5-5.1) Chloride Level 109 MEQ/L (98-107) Carbon Dioxide Level 17.6 MEQ/L (21.0-32.0) Blood Urea Nitrogen 40 MG/DL (7-18) Creatinine 3.24 MG/DL (0.60-1.30) Estimat Glomerular Filtration 22 ML/MIN (>89) Rate Calcium Level 6.8 MG/DL (8.5-10.1) Protein Corrected Calcium 6.6 MG/DL (8.5-10.1) Magnesium Level 1.4 MG/DL (1.5-2.5) Total Creatine Kinase 882 U/L (39-308) Creatine Kinase MB 8.2 NG/ML (0.5-3.6) Troponin I LESS THAN 0.02 NG/ML (0.02-0.05) Albumin 3.0 GM/DL (3.4-5.0) Prothrombin Time 12.9 SEC (9.8-11.6) Activated Partial 22.6 SEC Thromboplast Time (24.3-30.1) Last [address] 06/27/16 1126 Signed Impressions: Service Date/Time: Monday, June 27, 2016 12:09 - CONCLUSION: Negative for an acute process Jovani Virgen MD FACR Chest X-Ray 06/27/16 1126 Signed Impressions: Service Date/Time: Monday, June 27, 2016 13:37 - CONCLUSION: No acute disease. 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 Mild spinal stenosis C3-4 and C5-6 from marginal spurring and mild disc protrusion. No acute abnormalities noted. Sam Leal MD Shoulder X-Ray 06/27/16 0000 Signed Impressions: Service Date/Time: Monday, June 27, 2016 13:40 - CONCLUSION: Degenerative changes. Fracture is not appreciated. Jovani Virgen MD FACR Data Data Last Documented VS Vital Signs Date Time Temp Pulse Resp B/P Pulse Ox O2 Delivery O2 Flow Rate FiO2 06/27/16 12:31 18 96 Room Air 06/27/16 11:10 98.1 78 169/68 Orders Electrocardiogram (06/27/16 11:26) Complete Blood Count With Diff (06/27/16 11:26) Comprehensive Metabolic Panel (06/27/16 11:26) Ckmb (Isoenzyme) Profile (06/27/16 11:26) Troponin I (06/27/16 11:26) Act Partial Throm Time (Ptt) (06/27/16 11:26) Prothrombin Time / Inr (Pt) (06/27/16 11:26) Urinalysis - C+S If Indicated (06/27/16 11:26) Chest, Single Ap (06/27/16 11:26) Ct Brain W/O Iv Contrast(Rout) (06/27/16 11:26) Ct Cerv Spine W/O Contrast (06/27/16 11:26) Ecg Monitoring (06/27/16 11:26) Iv Access Insert/Monitor (06/27/16 11:26) Oximetry (06/27/16 11:26) Sodium Chloride 0.9% Flush (Ns Flush) (06/27/16 11:30) Orthostatic Vital Signs (06/27/16 11:26) Shoulder, Complete (>2vws) (06/27/16 ) Sodium Chlorid 0.9% 500 Ml Inj (Ns 500 M (06/27/16 11:30) Morphine Inj (Morphine Inj) (06/27/16 11:30) Ondansetron Inj (Zofran Inj) (06/27/16 11:30) B-Type Natriuretic Peptide (06/27/16 11:55) Magnesium (Mg) (06/27/16 11:55) CKMB (06/27/16 11:50) CKMB% (06/27/16 11:50) Ns + Kcl 20 Meq Inj (Ns + Kcl 20 Meq Inj (06/27/16 12:45) Calcium Gluconate Inj (Calcium Gluconate (06/27/16 12:45) Consult Vascular Access Team (06/27/16 ) Vascular Poc Ultrasound (06/27/16 ) Support Splint (06/27/16 14:06) Admit Order (Ed Use Only) (06/27/16 14:49) Consult Vascular Access Team (06/27/16 ) Sling Cradle Arm (06/27/16 ) Vascular Poc Ultrasound (06/27/16 ) Parathyroid Hormone Intact (06/27/16 16:42) Place In Observation (06/27/16 ) Code Status (06/27/16 16:45) Vital Signs (Adult) Q4H (06/27/16 16:45) Activity Oob With Assistance (06/27/16 16:45) Bedside Glucose SANTIAGO.AC&HS (06/27/16 16:45) Joist Setter / Telemetry .CONTINUOUS (06/27/16 16:45) Diet Renal (06/27/16 Dinner) Sodium Chloride 0.9% Flush (Ns Flush) (06/27/16 16:45) Sodium Chloride 0.9% Flush (Ns Flush) (06/27/16 21:00) Acetaminophen (Tylenol) (06/27/16 16:45) Ondansetron Inj (Zofran Inj) (06/27/16 16:45) Magnesium Hydroxide Liq (Milk Of Magnesi (06/27/16 16:45) Comprehensive Metabolic Panel (06/28/16 06:00) Complete Blood Count With Diff (06/28/16 06:00) Heparin Inj (Heparin Inj) (06/27/16 17:00) Scd Bilateral/Knee High SANTIAGO.BID (06/27/16 16:45) Naloxone Inj (Narcan Inj) (06/27/16 16:45) Consult Nephrology (06/27/16 ) Aspirin Ec (Ecotrin Ec) (06/28/16 09:00) Echo 2d Comp W/Dopp(Routine) (06/27/16 ) Bedside Glucose SANTIAGO.AC&HS&03 (06/27/16 16:58) ^ Blood Glucose Goal (Criteria (06/27/16 16:58) ^ Hypoglycemia 51 - 69 Mg/Dl (06/27/16 16:58) ^ Hypoglycemia 50 Mg/Dl Or < (06/27/16 16:58) ^ Notify Dr: Other (06/27/16 16:58) Dextrose 50% In Jg (Vial) Inj (D50w (Vi (06/27/16 17:00) Glucagon Inj (Glucagon Inj) (06/27/16 17:00) Insulin Aspart Supplemtl Scale (Novolog (06/27/16 21:00) Clonidine (Catapres) (06/27/16 17:00) Hemoglobin (Hgb) A1c (06/27/16 16:58) Magnesium Oxide (Mag-Ox) (06/27/16 17:00) Magnesium (Mg) (06/28/16 06:00) Vitamin D 1, 25 Dihydroxy (06/27/16 17:04) Calcium Gluconate (Calcium Gluconate) (06/28/16 09:00) Labs Laboratory Tests Test 06/27/16 06/27/16 11:50 12:45 White Blood Count 15.7 TH/MM3 Red Blood Count 3.26 MIL/MM3 Hemoglobin 9.4 GM/DL Hematocrit 29.6 % Mean Corpuscular Volume 91.0 FL Mean Corpuscular Hemoglobin 29.0 PG Mean Corpuscular Hemoglobin 31.8 % Concent Red Cell Distribution Width 16.5 % Platelet Count 173 TH/MM3 Mean Platelet Volume 8.0 FL Neutrophils (%) (Auto) 78.7 % Lymphocytes (%) (Auto) 5.2 % Monocytes (%) (Auto) 15.5 % Eosinophils (%) (Auto) 0.3 % Basophils (%) (Auto) 0.3 % Neutrophils # (Auto) 12.4 TH/MM3 Lymphocytes # (Auto) 0.8 TH/MM3 Monocytes # (Auto) 2.4 TH/MM3 Eosinophils # (Auto) 0.1 TH/MM3 Basophils # (Auto) 0.0 TH/MM3 CBC Comment AUTO DIFF Differential Comment AUTO DIFF CONFIRMED Platelet Estimate NORMAL Platelet Morphology Comment NORMAL Sodium Level 140 MEQ/L Potassium Level 3.0 MEQ/L Chloride Level 109 MEQ/L Carbon Dioxide Level 17.6 MEQ/L Anion Gap 13 MEQ/L Blood Urea Nitrogen 40 MG/DL Creatinine 3.24 MG/DL Estimat Glomerular Filtration 22 ML/MIN Rate Random Glucose 106 MG/DL Calcium Level 6.8 MG/DL Protein Corrected Calcium 6.6 MG/DL Magnesium Level 1.4 MG/DL Total Bilirubin 0.5 MG/DL Aspartate Amino Transf 31 U/L (AST/SGOT) Alanine Aminotransferase 24 U/L (ALT/SGPT) Alkaline Phosphatase 83 U/L Total Creatine Kinase 882 U/L Creatine Kinase MB 8.2 NG/ML Creatine Kinase MB % 0.9 % Troponin I LESS THAN 0.02 NG/ML Total Protein 7.7 GM/DL Albumin 3.0 GM/DL Prothrombin Time 12.9 SEC Prothromb Time International 1.2 RATIO Ratio Activated Partial 22.[address] [facility] Medical Record Reviewed: Yes Supervised Visit with SARAH: Yes Diagnosis Primary Impression: Generalized weakness Additional Impressions: Chronic Renal Failure / insufficiency, unspec Dizziness Right shoulder pain Qualified Code: M25.511 - Acute pain of right shoulder Electrolyte abnormality Fall Qualified Code: W19.XXXA - Fall, initial encounter Admitting Information Admitting Physician Requests: Admit Condition: Stable Christy Jimenez MD Jun 27, 2016 17:10
[2016-06-27 17:45] LABS: BACTERIA, URINE MOD /hpf; BLOOD, URINE MOD (NEG); COMMENT (UR) CULTURE INDICATED; CULTURE IF INDICATED CULTURE INDICATED; GLUCOSE,URINE NEG (NEG); KETONE, URINE NEG (NEG); NITRITE,URINE NEG (NEG); PH, URINE 5.5 (5.0-8.5); SQUAMOUS EPITHELIAL CELL URINE 17 /hpf (0-5); URINE COLOR LIGHT-YELLOW (YELLW/STRAW)
[2016-06-27] MEDS: HEPARIN SODIUM - SQ 10,000 UNITS/ML VIAL SQ SCH (18:44)
[2016-06-27 18:52] VITALS: BP 148/58; PULSE 75; RESP 19; O2SAT 94
[2016-06-27] MEDS: INSULIN ASPART SUPPLEMENTAL SCALE SQ SCH (20:10)
[2016-06-27] MEDS: SODIUM CHLORIDE 0.9% FLUSH 5 ML FLUSH FLUSH SCH (20:56)
[2016-06-27 21:00] VITALS: BP 145/63; PULSE 75; RESP 18; O2SAT 94
[2016-06-27 22:22] LABS: HEMOGLOBIN A1a 1.2 %; HEMOGLOBIN A1b 1.5 %; HEMOGLOBIN LA1C 2.4 %
[2016-06-27 22:23] LABS: HEMOGLOBIN Ao 84.8 %; HEMOGLOBIN P3 5.8 %
[2016-06-27] MEDS: POTASSIUM CHLORIDE 20 MEQ CONTROLLED RELEASE TAB PO SCH (23:45)
[2016-06-27 23:51] VITALS: BP 137/63; PULSE 80; RESP 18; O2SAT 95
[2016-06-28] MEDS: HEPARIN SODIUM - SQ 10,000 UNITS/ML VIAL SQ SCH ×2 (05:00→17:00)
[2016-06-28] MEDS: INSULIN ASPART SUPPLEMENTAL SCALE SQ SCH ×4 (05:40→23:16)
[2016-06-28 08:04] VITALS: PULSE 78
[2016-06-28] MEDS: cefTRIAXone INJ 1,000 MG in SODIUM CHLORIDE 0.9% INJ 100 ML IV SCH (09:20)
[2016-06-28] MEDS: SODIUM CHLORIDE 0.9% FLUSH 5 ML FLUSH FLUSH SCH ×2 (09:20→23:15)
[2016-06-28] MEDS: CALCIUM GLUCONATE 500 MG TAB PO SCH (09:20)
[2016-06-28] MEDS: ASPIRIN EC 81 MG TABEC PO SCH (09:20)
--- NOTE | 2016-06-28 09:52 | HHI.FPPN ---
Subjective Remarks Pt seen and examined this morning. Continues to endorse generalized weakness . Reports shoulder pain is improved, unable to move shoulder. Denies dysuria. Objective Vitals Vital Signs Date Time Temp Pulse Resp B/P Pulse Ox O2 Delivery O2 Flow Rate FiO2 06/27/16 23:51 80 18 137/63 95 06/27/16 21:00 75 18 145/63 94 Room Air 06/27/16 18:52 75 19 148/58 94 Room Air 06/27/16 12:31 18 96 Room Air 06/27/16 11:19 97 Room Air 06/27/16 11:10 98.1 78 18 169/68 98 I/O 06/27/16 06/27/16 06/27/16 06/28/16 06/28/16 06/28/16 07:00 15:00 23:00 07:00 15:00 23:00 Intake Total 100 ml Balance 100 ml Intake Oral 100 ml Result Diagram: 06/27/16 1150 06/27/16 1150 A/P Assessment and Plan 80-year-old man with a history of chronic kidney disease presents with generalized weakness and labs concerning for electrolyte abnormalities. Will place in observation for electrolyte repletion and nephrology consult and cardiac workup. Problem List: (1) Generalized weakness Status: Acute Plan: 80-year-old male with a history of chronic kidney disease presents with generalized weakness and electrolyte abnormalities. Patient has potassium of 3.0 , calcium of 6.8, protein corrected calcium is 6.6, magnesium of 1.4. Patient received calcium gluconate 2 g IV 1 and normal saline plus KCl 20 mEq IV 1 in the emergency department. Placement observation Consult nephrology Renal diet Orthostatic vital signs Monitor vital signs hospital monitor/telemetry Look for signs of infection including UA and CXR BNP, CBC, CMP, magnesium, PTH, 1, 25 dihydroxy vitamin D Calcium gluconate 500 mg by mouth daily Magnesium oxide 400 mg by mouth 1 Symptom control: Zofran 4 mg IV push every 6 hours when necessary for nausea or vomiting Tylenol 650 mg by mouth every 4 hours when necessary for pain, fever, irritability Magnesium hydroxide, milk of magnesia 30 mL by mouth every 12 hours when necessary for constipation (2) Chronic Renal Failure / insufficiency, unspec Status: Chronic Plan: Patient with a history of CKD has never seen a telephone interviewer. Currently presenting with electrolyte abnormalities likely causing generalized weakness. Nephrology consult (3) Leg edema Status: Acute Plan: Patient presented 6 months of lower extremity edema. Echocardiogram Holding home amlodipine (4) Essential hypertension Status: Chronic Plan: Patient on blood pressure medication for the past few years. Holding home amlodipine because of lower extremity edema Holding home Lasix because patient likely dehydrated and because this medication is potentially nephrotoxic Clonidine 0.1 mg by mouth every 6 hours when necessary for blood pressure over 160/90 (5) Diabetes mellitus type 2 in nonobese Status: Chronic Plan: Patient reports a history of diabetes but is not on any home medications to control his blood sugar. Holding home gabapentin because the serum concentration of this medication can become elevated and chronic kidney disease, and the most common adverse effect of this medication is BROKER ASSISTANT dizziness, drowsiness, ataxia, fatigue and second most common adverse effect is peripheral edema (6) Nutrition, metabolism, and development symptoms Status: Acute Plan: Fluids: Patient received calcium gluconate 2 g IV 1 and normal saline plus KCl 20 mEq IV 1 in the emergency department. Electrolytes: Monitor and replete as above Nutrition: Renal diet (7) No contraindication to deep vein thrombosis (DVT) prophylaxis Status: Acute Plan: Heparin 5000 units subcutaneous every 12 hours Lauro Alejandro MD R2 Jun 28, 2016 09:51
--- NOTE | 2016-06-28 10:52 | RADRPT ---
EXAM DATE/TIME: 06/28/2016 10:08 [place] COMPARISON: No previous studies available for comparison. INDICATIONS : Increased BUN/creatinine. MEDICAL HISTORY : Congestive heart failure. Hypertension. Diabetes mellitus type 2. Renal disease and failure. SURGICAL HISTORY : None. ENCOUNTER: Initial ACUITY: 1 day PAIN SCORE: 2/10 LOCATION: Bilateral flank MEASUREMENTS: RIGHT KIDNEY: 9.8 x 4.5 x 5.4 cm LEFT KIDNEY: 9.7 x 5.0 x 4.7 cm FINDINGS: RIGHT KIDNEY: Renal cortex is normal in thickness and increase in echotexture. No hydronephrosis, stone, or mass. Simple cyst upper pole measures 10 x 12 x 12 mm. LEFT KIDNEY: Renal cortex is normal in thickness and increase in echotexture. No hydronephrosis, stone, or mass. BLADDER: Within normal limits given the degree of distension. CONCLUSION: 1. Kidneys are slightly echogenic which can be seen with medical renal disease. 2. Simple right renal cyst. Gordon Kelly MD on June 28, 2016 at 10:49 Board Certified Radiologist. This report was verified electronically.
[2016-06-28 11:09] LABS: AUTOMATED NEUTROPHIL # 10.1 TH/MM3 (1.8-7.7); BASOPHIL % 0.3 % (0.0-2.0); EOSINOPHIL # 0.4 TH/MM3 (0-0.4); EOSINOPHIL % 2.7 % (0.0-4.0); HEMATOCRIT 26.9 % (39.0-51.0); HEMO FLAGS DIFF FINAL; LYMPH % 7.2 % (9.0-44.0); MEAN CELL VOLUME 88.3 FL (80.0-100.0); MEAN CORPUSCULAR HEMOGLOBIN 28.7 PG (27.0-34.0); MEAN CORPUSCULAR HGB CONC 32.5 % (32.0-36.0); NEUT % 76.8 % (16.0-70.0); PLATELET COUNT 182 TH/MM3 (150-450); RED BLOOD COUNT 3.04 MIL/MM3 (4.50-5.90); RED CELL DISTRIBUTION WIDTH 16.4 % (11.6-17.2); WHITE BLOOD COUNT 13.1 TH/MM3 (4.0-11.0)
[2016-06-28 11:36] LABS: BICARBONATE 22.5 MEQ/L (21.0-32.0); MAGNESIUM 1.5 MG/DL (1.5-2.5); POTASSIUM 3.4 MEQ/L (3.5-5.1); TOTAL BILIRUBIN ADULT 0.5 MG/DL (0.2-1.0)
[2016-06-28 11:41] VITALS: BP 139/65; PULSE 81; RESP 20; TEMP 98.4; O2SAT 94
[2016-06-28 11:46] LABS: CALCIUM-PROTEIN CORRECTED 6.9 MG/DL (8.5-10.1)
--- NOTE | 2016-06-28 11:49 | HHI.FPPN ---
Subjective Remarks No acute events overnight and patient feels relatively well this morning. Continues to feel significantly weak/fatigued and feels that his lower extremity swelling has gotten slightly worse. He states his right shoulder no longer hurts constantly however is still very painful to use or to lift his right arm. He denies any chest pain or shortness of breath. He denies any palpitations. He denies any fevers or chills. He denies any nausea or vomiting. In summary this is a 80-year-old male who presented to the emergency department with a chief complaint of feeling fatigued/weak and falling. He was at home on the day prior to admission and went to stand up from his bed when he felt lightheaded/dizzy and fell while walking to the bathroom. He reports feeling that his legs felt weak and that he just "lost control of them". He did have a complaint of significant right arm/shoulder pain because he did fall forward onto the anterior portion of his right shoulder. He did not lose consciousness. He did not hit his head. 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 Anemia Past Surgical History Pt denies any previous surgeries Family History Pt reports that his parents from old age Social History Pt lives at home alone. Originally from [place]. 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 Smoked about 1ppd of cigarettes for about 10 yrs about 50 years ago. Denies current tobacco use, alcohol, or illicit drug use. Objective Vitals Vital Signs Date Time Temp Pulse Resp B/P Pulse Ox O2 Delivery O2 Flow Rate FiO2 06/27/16 23:51 80 18 137/63 95 06/27/16 21:00 75 18 145/63 94 Room Air 06/27/16 18:52 75 19 148/58 94 Room Air 06/27/16 12:31 18 96 Room Air I/O 06/27/16 06/27/16 06/27/16 06/28/16 06/28/16 06/28/16 06:59 14:59 22:59 06:59 14:59 22:59 Intake Total 100 ml Balance 100 ml Intake Oral 100 ml Result Diagram: 06/28/16 1035 06/27/16 1150 Imaging Last 48 hours Impressions Renal Ultrasound 06/28/16 0000 Signed Impressions: Service Date/Time: June 10:08 - CONCLUSION: 1. Kidneys are slightly echogenic which can be seen with medical renal disease. 2. Simple right renal cyst. Gordon Kelly MD Head CT 06/27/16 1126 Signed Impressions: Service Date/Time: Monday, June 27, 2016 12:09 - CONCLUSION: Negative for an acute process Jovani Virgen MD FACR Chest X-Ray 06/27/166 Signed Impressions: Service Date/Time: Monday, June 27, 2016 13:37 - CONCLUSION: No acute disease. 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 Mild spinal stenosis C3-4 and C5-6 from marginal spurring and mild disc protrusion. No acute abnormalities noted. Sam Leal MD Shoulder X-Ray 06/27/16 0000 Signed Impressions: Service Date/Time: Monday, June 27, 2016 13:40 - CONCLUSION: Degenerative changes. Fracture is not appreciated. Jovani Virgen MD FACR Objective Remarks GENERAL: Elderly, overweight Sara male sitting up at the edge of the bed in no obvious distress SKIN: hyperkeratotic hyperpigmented lesions present over knuckles of both hands , and on lateral aspect of bilateral lower extremities HEAD: Atraumatic. Normocephalic. EYES: Pupils equal round and reactive. ENT: Poor dentition. no erythema noted. Airway patent. NECK: Trachea midline. Supple, nontender, no meningeal signs. CARDIOVASCULAR: Regular rate and rhythm without murmurs, gallops, or rubs. No JVD. RESPIRATORY: Symmetric, unlabored respirations. Clear to auscultation. Breath sounds equal bilaterally. No wheezes, rales, or rhonchi. GASTROINTESTINAL: Abdomen soft, non-tender, nondistended. MUSCULOSKELETAL: 2+ pitting edema to distal thigh just proximal to knees of bilateral lower extremities. No foot ulcers. Skin findings as above. NEUROLOGICAL: Awake and alert. A/P Assessment and Plan 80-year-old man with a history of chronic kidney disease presents with generalized weakness and labs concerning for electrolyte abnormalities. Will place in observation for electrolyte repletion and nephrology consult and cardiac workup. Problem List: (1) Generalized weakness Status: Acute Plan: Likely multifactorial with chronic kidney disease, electrolyte abnormalities and possible cardiac etiology Physical therapy consulted to evaluate patient Nephrology consult placed for chronic kidney disease and elevated creatinine - Renal ultrasound ordered and pending - Renal diet Given chronic kidney disease, we will hold patient's gabapentin as he was on 300 mg 3 times a day - Restart at lower dose after nephrology consult if appropriate 2-D echocardiogram ordered Continue to monitor patient on telemetry Electrolyte abnormalities corrected as below: - Patient received calcium gluconate 2 g IV 1 and normal saline plus KCl 20 mEq IV 1 in the emergency department. - Calcium gluconate 500 mg by mouth daily - Magnesium oxide 400 mg by mouth 1 Infection could play a role in this, urinalysis somewhat dirty - Rocephin 1 g IV every 24 - Urine culture pending Symptom control: Zofran 4 mg IV push every 6 hours when necessary for nausea or vomiting Tylenol 650 mg by mouth every 4 hours when necessary for pain, fever, irritability Magnesium hydroxide, milk of magnesia 30 mL by mouth every 12 hours when necessary for constipation (2) Chronic Renal Failure / insufficiency, unspec Status: Chronic Plan: Patient with a history of CKD has never seen a telephone lineman. Currently presenting with electrolyte abnormalities likely causing generalized weakness. Nephrology consult (3) Right shoulder pain Status: Acute Plan: X-ray of the right shoulder with no evidence of fracture Possible rotator cuff tear - We will order a sling for comfort - Physical therapy to work with patient (4) Leg edema Status: Acute Plan: Patient presented 6 months of lower extremity edema, likely due to chronic kidney disease and fluid overload Echocardiogram Holding home amlodipine (5) Essential hypertension Status: Chronic Plan: Patient on blood pressure medication for the past few years. Holding home amlodipine because of lower extremity edema Restart home Lasix due to lower extremity edema Clonidine 0.1 mg by mouth every 6 hours when necessary for blood pressure over 160/90 (6) Diabetes mellitus type 2 in nonobese Status: Chronic Plan: Patient reports a history of diabetes but is not on any home medications to control his blood sugar. - Sliding scale insulin as needed (7) Nutrition, metabolism, and development symptoms Status: Acute Plan: Fluids: Patient received calcium gluconate 2 g IV 1 and normal saline plus KCl 20 mEq IV 1 in the emergency department. Electrolytes: Monitor and replete as above Nutrition: Renal diet (8) No contraindication to deep vein thrombosis (DVT) prophylaxis Status: Acute Plan: Heparin 5000 units subcutaneous every 12 hours Problem Qualifiers (1) Right shoulder pain: Qualified Code: M25.511 - Acute pain of right shoulder Thomas Mcgill MD Jun 28, 2016 11:48
--- NOTE | 2016-06-28 15:23 | PD.CONS ---
HPI Service Nephrology Consult Requested By Dr Sandoval Reason for Consult CKD Primary Care Physician Debbie Alejandro MD History of Present Illness 80 Year old BM with history of CKD diabetes follows with Dr. Tran although missed appointments and has not seen him recently, he is having lower leg edema and came with this complain Review of Systems Constitutional: COMPLAINS OF: Fatigue Cardiovascular: COMPLAINS OF: Lower Extremity Edema Past Family Social History Allergies: Coded Allergies: Lisinopril (Verified Allergy, Severe, 06/27/16) Metformin (Verified Allergy, Severe, 06/27/16) Past Medical History DM HTN CKD Stage [address] Tran chf Reported Medications Reported Meds & Active Scripts Active Lasix (Furosemide) 40 Mg Tab 40 Mg PO DAILY Norvasc (Amlodipine Besylate) 10 Mg Tab 10 Mg PO DAILY Neurontin (Gabapentin) 300 Mg Cap 300 Mg PO TID Medical Compression Elastic Stockings 1 Mis Mis 1 Ea .ROUTE DIRECTED Reported Aspirin 81 Mg Tabdr 81 Mg PO DAILY Active Ordered Medications Current Medications Medications (Trade) Dose Ordered Sig/Carol Route Start Time Stop Time Status Last Admin (NS Flush) 2 ml UNSCH PRN FLUSH 06/27/16 16:45 (NS Flush) 2 ml BID FLUSH 06/27/16 21:00 06/28/16 09:20 (Tylenol) 650 mg Q4H PRN PO 06/27/16 16:45 (Zofran Inj) 4 mg Q6H PRN IVP 06/27/16 16:45 (Milk Of Magnesia Liq) 30 ml Q12H PRN PO 06/27/16 16:45 (Heparin Inj) 5,000 units Q12H SQ 06/27/16 17:00 06/27/16 18:44 (Narcan Inj) 0.4 mg UNSCH PRN IV 06/27/16 16:45 (Ecotrin Ec) 81 mg DAILY PO 06/28/16 09:00 06/28/16 09:20 (D50w (Vial) Inj) 25 ml UNSCH PRN IV PUSH 06/27/16 17:00 (Glucagon Inj) 1 mg UNSCH PRN OTHER 06/27/16 17:00 (Catapres) 0.1 mg Q6H PRN PO 06/27/16 17:00 Calcium Gluconate 500 mg 500 mg DAILY PO 06/28/16 09:00 2/2/17 09:20 (Rocephin Inj/NS Inj) 100 ml @ 200 mls/hr Q24H IV 06/28/16 08:00 06/28/16 09:20 Family History noncontributory Social History denies Physical Exam Vital Signs Vital Signs Date Time Temp Pulse Resp B/P Pulse Ox O2 Delivery O2 Flow Rate FiO2 06/28/16 11:41 98.4 81 20 139/65 94 06/28/16 08:04 78 06/27/16 23:51 80 18 137/63 95 06/27/16 21:00 75 18 145/63 94 Room Air 06/27/16 18:52 75 19 148/58 94 Room Air Physical Exam GENERAL: Well-nourished, well-developed patient. SKIN: Warm and dry. HEAD: Normocephalic. EYES: No scleral icterus. No injection or drainage. NECK: Supple, trachea midline. No JVD or lymphadenopathy. CARDIOVASCULAR: Regular rate and rhythm without murmurs, gallops, or rubs. RESPIRATORY: Breath sounds equal bilaterally. No accessory muscle use. GASTROINTESTINAL: Abdomen soft, non-tender, nondistended. EXTREMITIES: No cyanosis, 3 plus edema. NEUROLOGICAL: Awake, alert, and oriented x 3. Non-focal. Laboratory Laboratory Tests Test 06/27/16 06/27/16 06/28/16 17:00 20:45 10:35 Urine Color LIGHT-YELLOW Urine Turbidity HAZY Urine pH 5.5 Urine Specific [place] 1.010 Urine Protein 30 Urine Glucose (UA) NEG Urine Ketones NEG Urine Occult Blood MOD Urine Nitrite NEG Urine Bilirubin NEG Urine Urobilinogen LESS THAN 2.0 Urine Leukocyte Esterase MOD Urine RBC 3 Urine WBC 4 Urine Squamous Epithelial 17 Cells Urine Bacteria MOD Microscopic Urinalysis Comment CULTURE INDICATED B-Type Natriuretic Peptide 159 Parathyroid Hormone (Intact) 968.9 White Blood Count 13.1 Red Blood Count 3.04 Hemoglobin 8.7 Hematocrit 26.9 Mean Corpuscular Volume 88.3 Mean Corpuscular Hemoglobin 28.7 Mean Corpuscular Hemoglobin 32.5 Concent Red Cell Distribution Width 16.4 Platelet Count 182 Mean Platelet Volume 7.9 Neutrophils (%) (Auto) 76.8 Lymphocytes (%) (Auto) 7.2 Monocytes (%) (Auto) 13.0 Eosinophils (%) (Auto) 2.7 Basophils (%) (Auto) 0.3 Neutrophils # (Auto) 10.1 Lymphocytes # (Auto) 1.0 Monocytes # (Auto) 1.7 Eosinophils # (Auto) 0.4 Basophils # (Auto) 0.0 CBC Comment DIFF FINAL Differential Comment Sodium Level 141 Potassium Level 3.4 Chloride Level 106 Carbon Dioxide Level 22.5 Anion Gap 13 Blood Urea Nitrogen 45 Creatinine 3.63 Estimat Glomerular Filtration 20 Rate Random Glucose 81 Calcium Level 7.0 Protein Corrected Calcium 6.9 Phosphorus Level 5.3 Magnesium Level 1.5 Total Bilirubin 0.5 Aspartate Amino Transf 35 (AST/SGOT) Alanine Aminotransferase 23 (ALT/SGPT) Alkaline Phosphatase 85 Total Protein 7.5 Albumin 2.6 Date/Time Procedure Status Source Growth 06/28/16 10:35 Aerobic Blood Culture Received Blood Peripheral Pending 06/28/16 10:35 Anaerobic Blood Culture Received Blood Peripheral Pending 06/27/16 17:00 Urine Culture - Preliminary Resulted Urine Clean Catch IMMATURE GROWTH - REINCUBATE Result Diagram: 06/28/16 1035 06/28/16 1035 Imaging Last Impressions Renal Ultrasound 06/28/16 0000 Signed Impressions: Service Date/Time: June 10:08 - CONCLUSION: 1. Kidneys are slightly echogenic which can be seen with medical renal disease. 2. Simple right renal cyst. Gordon Kelly MD Head CT 06/27/16 1126 Signed Impressions: Service Date/Time: Monday, June 27, 2016 12:09 - CONCLUSION: Negative for an acute process Jovani Virgen MD FACR Chest X-Ray 06/27/16 1126 Signed Impressions: Service Date/Time: Monday, June 27, 2016 13:37 - CONCLUSION: No acute disease. 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 Mild spinal stenosis C3-4 and C5-6 from marginal spurring and mild disc protrusion. No acute abnormalities noted. Sam Leal MD Shoulder X-Ray 06/27/16 0000 Signed Impressions: Service Date/Time: Monday, June 27, 2016 13:40 - CONCLUSION: Degenerative changes. Fracture is not appreciated. Jovani Virgen MD FACR Assessment and Plan Problem List: (1) Chronic Renal Failure / insufficiency, unspec Plan: He needs to be on Lasix as has edema due to renal failure advice to follow up with Dr. Tran his [employer] follow BMP replace K add PhosLo he may need dialysis in future. (2) Diabetes mellitus type 2 in nonobese Plan: follow BG (3) Essential hypertension Plan: monitor BP Piero Honeycutt MD Jun 28, 2016 15:23
[2016-06-28 15:49] VITALS: BP 135/62; PULSE 87; RESP 22; TEMP 98.1; O2SAT 94
--- NOTE | 2016-06-28 15:52 | EC ---
Study Study Date:06/28/2016 STUDY CONCLUSIONS SUMMARY - Left ventricle: The cavity size was normal. Wall thickness was increased in a pattern of mild LVH. Systolic function was normal. The estimated ejection fraction was in the range of 55% to 60%. Wall motion was normal; there were no regional wall motion abnormalities. - Aortic valve: There was mild stenosis. If LV function is below 40, please consider prescribing an ACEI or ARB or document rationale for non-use. PROCEDURE DATA STUDY STATUS: Elective. Procedure: Transthoracic echocardiography. Image quality was good. Scanning was performed from the parasternal, apical, and subcostal acoustic windows. Study completion: The patient tolerated the procedure well. Transthoracic echocardiography. M-mode, complete 2D, complete spectral Doppler, and color Doppler. Patient status: Inpatient. CARDIAC ANATOMY LEFT VENTRICLE: The cavity size was normal. Wall thickness was increased in a pattern of mild LVH. Systolic function was normal. The estimated ejection fraction was in the range of 55% to 60%. Wall motion was normal; there were no regional wall motion abnormalities. AORTIC VALVE: Probably trileaflet; mildly thickened leaflets. Doppler: There was mild stenosis. No significant regurgitation. Valve area: 1.07cm^2(VTI). Valve area: 1.15cm^2 (Vmax). Mean gradient: 15mm Hg (S). Peak gradient: 24mm Hg (S). MITRAL VALVE: The valve appears to be grossly normal. Doppler: There was no evidence for stenosis. Trace regurgitation. LEFT ATRIUM: The atrium was normal in size. RIGHT VENTRICLE: Not well visualized. PULMONIC VALVE: Not well visualized. Doppler: There was no evidence for stenosis. No significant regurgitation. TRICUSPID VALVE: The valve appears to be grossly normal. Doppler: There was no evidence for stenosis. Trace regurgitation. PERICARDIUM: There was no pericardial effusion. BASIC MEASUREMENTS ADULT NORMAL Left ventricle LV internal dimension, ED, chordal level, 44 mm 43-52 PLAX LV internal dimension, ES, chordal level, 33.8 mm 23-38 PLAX Fractional shortening, chordal level, PLAX *23 % >29 LV posterior wall thickness, ED 11.4 mm IVS/LVPW ratio, ED 1.21 <1.3 Ventricular septum Septal thickness, ED 13.8 mm Aortic valve Leaflet separation 18 mm 15-26 Right ventricle RV internal dimension, ED, PLAX 27 mm 19-38 BASIC MEASUREMENTS ADULT NORMAL Aortic valve Leaflet separation 18 mm 15-26 Aorta Root diameter, ED 31 mm 20-37 Left atrium Anterior-posterior dimension, ES 35 mm 19-40 LA/aortic root ratio 1.13 DOPPLER MEASUREMENTS ADULT NORMAL Aortic valve Peak velocity, S 245 cm/s Mean velocity, S 183 cm/s VTI, S 52.7 cm Mean gradient, S 15 mm Hg Peak gradient, S 24 mm Hg Valve area, VTI 1.07 cm^2 Valve area, Vmax 1.15 cm^2 LEGEND: Mean values are shown as u=mean value. Asterisk (*) rabago values outside specified normal range. Prepared and signed by Manuel Hightower [id number]
[2016-06-28] MEDS: FUROSEMIDE 20 MG TAB PO SCH (17:03)
[2016-06-28] MEDS: CALCIUM ACETATE 667 MG CAP PO SCH (17:03)
[2016-06-28 19:14] VITALS: BP 151/66; PULSE 85; RESP 18; TEMP 97.9; O2SAT 96
[2016-06-29] MEDS: HEPARIN SODIUM - SQ 10,000 UNITS/ML VIAL SQ SCH ×2 (05:00→17:00)
[2016-06-29 05:47] VITALS: BP 148/68; PULSE 68; RESP 18; TEMP 98; O2SAT 98
[2016-06-29 06:34] LABS: BICARBONATE 19.9 MEQ/L (21.0-32.0); MAGNESIUM 1.5 MG/DL (1.5-2.5)
[2016-06-29 06:43] LABS: POTASSIUM 2.9 MEQ/L (3.5-5.1)
[2016-06-29] MEDS ORDERED: POTASSIUM CHLORIDE 10 MEQ CONTROLLED RELEASE TAB PO ONE (07:00)
[2016-06-29] MEDS: INSULIN ASPART SUPPLEMENTAL SCALE SQ SCH ×4 (07:00→21:00)
--- NOTE | 2016-06-29 07:11 | EKG ---
Date Performed: 06/27/2016 Time Performed: 11:26:16 PTAGE: 80 years EKG: Sinus rhythm WITH OCCASIONAL VENTRICULAR PREMATURE COMPLEXES SEPTAL MYOCARDIAL INFARCTION MODERATE T-WAVE ABNORMA LITY, CONSIDER INFERIOR ISCHEMIA ABNORMAL ECG PREVIOUS TRACING : 06/20/2016 19.30 Compared to the previous tracing, PVCs are new DOCTOR: Mitch Mi Interpretating Date/Time 06/29/2016 07:08:56
[2016-06-29] MEDS: cefTRIAXone INJ 1,000 MG in SODIUM CHLORIDE 0.9% INJ 100 ML IV SCH (07:52)
[2016-06-29 07:55] LABS: AUTOMATED NEUTROPHIL # 8.7 TH/MM3 (1.8-7.7); BASOPHIL % 0.2 % (0.0-2.0); EOSINOPHIL # 0.4 TH/MM3 (0-0.4); EOSINOPHIL % 3.6 % (0.0-4.0); HEMATOCRIT 23.8 % (39.0-51.0); HEMO FLAGS DIFF FINAL; LYMPH % 9.7 % (9.0-44.0); LYMPHOCYTE # 1.2 TH/MM3 (1.0-4.8); MEAN CELL VOLUME 87.4 FL (80.0-100.0); MEAN CORPUSCULAR HEMOGLOBIN 28.5 PG (27.0-34.0); MEAN CORPUSCULAR HGB CONC 32.5 % (32.0-36.0); MONO % 13.4 % (0.0-8.0); NEUT % 73.1 % (16.0-70.0); PLATELET COUNT 169 TH/MM3 (150-450); RED BLOOD COUNT 2.72 MIL/MM3 (4.50-5.90); RED CELL DISTRIBUTION WIDTH 15.9 % (11.6-17.2); WHITE BLOOD COUNT 11.9 TH/MM3 (4.0-11.0)
[2016-06-29 08:03] VITALS: PULSE 81
[2016-06-29 08:46] VITALS: BP 145/65; PULSE 88; RESP 19; O2SAT 95
--- NOTE | 2016-06-29 08:53 | HHI.FPPN ---
Subjective Remarks Patient reports feeling a little better, with less dizziness and less weakness. Patient complains of rash on the sides of legs, and wants treatment. Patient endorses chills, but denies fever. He reports that he always feels cold, which he attributes to his anemia. Patient denies dysuria. Pt reports decreased/ improving LE edema. Denies orthopnea. Discussed plan of care. (Pk Gallagher MD R1) Objective Vitals Vital Signs Date Time Temp Pulse Resp B/P Pulse Ox O2 Delivery O2 Flow Rate FiO2 06/29/16 05:47 98.0 68 18 148/68 98 06/28/16 19:14 97.9 85 18 151/66 96 06/28/16 15:49 98.1 87 22 135/62 94 06/28/16 11:41 98.4 81 20 139/65 94 I/O 06/28/16 06/28/16 06/28/16 06/29/16 06/29/16 06/29/16 07:00 15:00 23:00 07:00 15:00 23:00 Intake Total 740 ml Balance 740 ml Intake Oral 640 ml IV Total 100 ml # Voids 3 (Pk Gallagher MD R1) Result Diagram: 06/29/16 0545 06/29/16 0545 Imaging Last Impressions Renal Ultrasound 06/28/16 0000 Signed Impressions: Service Date/Time: June 10:08 - CONCLUSION: 1. Kidneys are slightly echogenic which can be seen with medical renal disease. 2. Simple right renal cyst. Gordon Kelly MD Head CT 06/27/16 1126 Signed Impressions: Service Date/Time: Monday, June 27, 2016 12:09 - CONCLUSION: Negative for an acute process Jovani Virgen MD FACR Chest X-Ray 06/27/161125 Signed Impressions: Service Date/Time: Monday, June 27, 2016 13:37 - CONCLUSION: No acute disease. 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 Mild spinal stenosis C3-4 and C5-6 from marginal spurring and mild disc protrusion. No acute abnormalities noted. Sam Leal MD Shoulder X-Ray 06/27/16 0000 Signed Impressions: Service Date/Time: Monday, June 27, 2016 13:40 - CONCLUSION: Degenerative changes. Fracture is not appreciated. Jovani Virgen MD FACR Objective Remarks GENERAL: Elderly, overweight Sara male lying down in bed, asleep but easily arousable and in no obvious distress SKIN: hyperkeratotic hyperpigmented lesions present on lateral aspect of bilateral lower extremities HEAD: Atraumatic. Normocephalic. EYES: Pupils equal round and reactive. ENT: Poor dentition. no erythema noted. Airway patent. NECK: Trachea midline. Supple, nontender, no meningeal signs. CARDIOVASCULAR: Regular rate and rhythm with grade ii/vi systolic murmur, but no gallops or rubs. No JVD. RESPIRATORY: Symmetric, unlabored respirations. Clear to auscultation. Breath sounds equal bilaterally. No wheezes, rales, or rhonchi. GASTROINTESTINAL: Abdomen soft, non-tender, nondistended. MUSCULOSKELETAL: 2+ pitting edema to mid lewis BL. 1+ pitting edema to knees BL. Skin findings as above. NEUROLOGICAL: Awake and alert. (Pk Gallagher MD R1) A/P Assessment and Plan 80-year-old man with a history of stage IV chronic kidney disease presents with generalized weakness and labs concerning for electrolyte abnormalities. Will place in observation for electrolyte repletion and nephrology consult and cardiac workup. Discharge Planning Discharge to PT at rehab. (Pk Gallagher MD R1) Attending Attestation Pt. examined and case discussed with resident physicians I have read the above note and agree with the assessment/plan as discussed with me I was involved in all medical decision making for this patient Thomas Mcgill MD (Thomas Mcgill MD) Problem List: (1) Hypokalemia Status: Acute Plan: Patient presented with hypokalemia with potassium of 3.0 on admission. Potassium this morning was 2.9. KCl 20 mg by mouth every 12 hours scheduled IV fluids with 20 mEq of potassium, KCl 60 mEq by mouth today Recheck potassium in the afternoon Magnesium sulfate 2 g IV today for a magnesium level of 1.5 this morning Recheck tomorrow morning (2) Hypocalcemia Status: Acute Plan: Patient presented with hypocalcemia with a calcium of 6.8 and a protein corrected calcium of 6.6. Patient's calcium this morning was 6.8, protein corrected calcium was 7.0. Administer calcium gluconate 2 g IV today Recheck calcium in the afternoon Recheck tomorrow morning (3) Generalized weakness Status: Acute Plan: Likely multifactorial with chronic kidney disease, electrolyte abnormalities and less likely cardiac etiology given Echocardiogram showing EF of 55-60%. Physical therapy consulted and recommended PT at rehab. Pt amenable to going to rehab. Will dw CM. Nephrology consult placed for chronic kidney disease and elevated creatinine - Renal ultrasound showed medical renal disease and a simple right renal cyst - Renal diet - Appreciate nephrology recommendations below: He needs to be on Lasix as has edema due to renal failure advice to follow up with Dr. Tran [facility] follow BMP replace K add PhosLo he may need dialysis in future. follow BG monitor BP Given his edema, fluid restrict to less than 1.5 L per day. Given chronic kidney disease, we will hold patient's gabapentin as he was on 300 mg 3 times a day - Restart at lower dose after nephrology consult if appropriate Continue to monitor patient on telemetry Electrolyte abnormalities corrected as below today: - KCl 20 mEq IV and 60 mEq PO - Mag sulfate 2g IV - Ca gluconate 2g IV Infection could play a role in this, urinalysis somewhat dirty - Rocephin 1 g IV every 24 - Urine culture pending Symptom control: Zofran 4 mg IV push every 6 hours when necessary for nausea or vomiting Tylenol 650 mg by mouth every 4 hours when necessary for pain, fever, irritability Magnesium hydroxide, milk of magnesia 30 mL by mouth every 12 hours when necessary for constipation (4) Chronic Renal Failure / insufficiency, unspec Status: Chronic Plan: Patient with a history of CKD saw transformation lead Dr. Tran years ago. Currently presenting with electrolyte abnormalities likely causing generalized weakness. Nephrology consult. Recommendations appreciated as above. (5) Right shoulder pain Status: Acute Plan: X-ray of the right shoulder with no evidence of fracture Possible rotator cuff tear - We will order a sling for comfort - Physical therapy recommended PT at rehab. Pt amenable to this idea. Will discuss with case management. (6) Leg edema Status: Acute Plan: Patient presents with a h/o 6 months of lower extremity edema, likely due to chronic kidney disease and fluid overload. Echocardiogram showed ejection fraction 55-60% Holding home amlodipine Diurese with Lasix Fluid restriction less than 1.5 L per day (7) Essential hypertension Status: Chronic Plan: Patient on blood pressure medication for the past few years. Monitor bp Holding home amlodipine because of lower extremity edema Restart home Lasix due to lower extremity edema Clonidine 0.1 mg by mouth every 6 hours when necessary for blood pressure over 160/90 (8) Diabetes mellitus type 2 in nonobese Status: Chronic Plan: Patient reports a history of diabetes but is not on any home medications to control his blood sugar. - Sliding scale insulin as needed - Monitor blood glucose (9) Nutrition, metabolism, and development symptoms Status: Acute Plan: Fluids: Fluid restrict to less than 1.5 L per day. Electrolytes: Monitor and replete: Patient to receive calcium gluconate 2 g IV 1, mag sulfate 2g IV, KCl 20mEq IV and 60 mEq PO today. Nutrition: Renal diet. (10) No contraindication to deep vein thrombosis (DVT) prophylaxis Status: Acute Plan: Heparin 5000 units subcutaneous every 12 hours (Pk Gallagher MD R1) Problem Qualifiers (1) Right shoulder pain: Qualified Code: M25.511 - Acute pain of right shoulder Pk Gallagher MD R1 Jun 29, 2016 08:53 Thomas Mcgill MD Jun 29, 2016 22:07
[2016-06-29] MEDS ORDERED: POTASSIUM CHLORIDE INJ 20 MEQ, MAGNESIUM SULFATE INJ 2 GM in SODIUM CHLOR 0.9% 1000 ML ... IV ONE (09:00)
[2016-06-29] MEDS ORDERED: CALCIUM GLUCONATE INJ 2 GM in SODIUM CHLORIDE 0.9% INJ 100 ML IV ONE (09:00)
[2016-06-29] MEDS ORDERED: EUCERIN CREAM 120 GM JAR TOPICAL PRN (09:00)
[2016-06-29] MEDS: CALCIUM GLUCONATE 500 MG TAB PO SCH (09:41)
[2016-06-29] MEDS: SODIUM CHLORIDE 0.9% FLUSH 5 ML FLUSH FLUSH SCH ×2 (09:41→21:00)
[2016-06-29] MEDS: FUROSEMIDE 20 MG TAB PO SCH ×2 (09:41→17:15)
[2016-06-29] MEDS: POTASSIUM CHLORIDE 20 MEQ CONTROLLED RELEASE TAB PO SCH ×2 (09:41→21:00)
[2016-06-29] MEDS: CALCIUM ACETATE 667 MG CAP PO SCH ×3 (09:41→17:15)
[2016-06-29] MEDS: ASPIRIN EC 81 MG TABEC PO SCH (09:41)
[2016-06-29 12:02] LABS: BICARBONATE 21.2 MEQ/L (21.0-32.0); MAGNESIUM 1.6 MG/DL (1.5-2.5)
[2016-06-29 12:12] VITALS: BP 133/63; PULSE 81; RESP 19; TEMP 98.3; O2SAT 95
[2016-06-29 12:21] LABS: CALCIUM-PROTEIN CORRECTED 7.4 MG/DL (8.5-10.1)
[2016-06-29 17:45] VITALS: BP 151/68; PULSE 78; RESP 20; O2SAT 96
--- NOTE | 2016-06-29 18:40 | HHI.NPPN ---
Subjective History of Present Illness 80 year old male with DM,HTN,CKD Edema Review of Systems General Constitutional: Fatigue Cardiovascular Cardiac: Edema Objective Data Data 06/28/16 06/29/16 19:00 07:00 Intake Total 740 ml Balance 740 ml Intake Oral 640 ml IV Total 100 ml # Voids 3 Vital Signs Date Time Temp Pulse Resp B/P Pulse Ox O2 Delivery O2 Flow Rate FiO2 06/29/16 17:45 78 20 151/68 96 06/29/16 12:12 98.3 81 19 133/63 95 06/29/16 08:46 88 19 145/65 95 06/29/16 08:03 81 06/29/16 05:47 98.0 68 18 148/68 98 06/28/16 19:14 97.9 85 18 151/66 96 -: 06/29/16 0545 06/29/16 1125 Physical Exam General Appearance: Well Developed, Well Nourished Neck Neck Exam: Neck Supple Pulmonary Resp Exam: Clear Bilaterally, Breath Sounds Equal Cardiology CV Exam: Regular, Normal Sinus Rhythm Gastrointestinal/Abdomen GI Exam: Soft, Non-Tender, Positive Bowel Movement Extremeties Extremities Exam: Pitting Edema, Dependent Edema Assessment/Plan Problem List: (1) Chronic Renal Failure / insufficiency, unspec Plan: He has low K replaced follow BMP continue to replace K add PhosLo he may need dialysis in future. Dr. Tran to follow on Saturday give Mag as it will help K as well he is approaching ESRD Sec [facility] Disease give Calcitriol 0.25 mcg (2) Diabetes mellitus type 2 in nonobese Plan: follow BG (3) Essential hypertension Plan: monitor BP Piero Honeycutt MD Jun 29, 2016 18:40
[2016-06-29] MEDS ORDERED: MAGNESIUM SULFATE 1 GM PREMIX 100 ML IV ONE (18:45)
[2016-06-29] MEDS ORDERED: CALCITRIOL 0.25 MCG CAP PO ONE (18:45)
[2016-06-29 19:20] LABS: BICARBONATE 20.4 MEQ/L (21.0-32.0); MAGNESIUM 1.9 MG/DL (1.5-2.5); POTASSIUM 3.5 MEQ/L (3.5-5.1)
[2016-06-29 20:06] VITALS: BP 161/70; PULSE 92; RESP 20; TEMP 97.5; O2SAT 95
[2016-06-29 21:08] LABS: CALCIUM-PROTEIN CORRECTED 7.3 MG/DL (8.5-10.1)
[2016-06-30] VITALS (8 sets, daily range): BP systolic 130–168; BP diastolic 62–74; PULSE 72–84; RESP 16–20; TEMP 96.3–98.2; O2SAT 91–97
[2016-06-30] MEDS: HEPARIN SODIUM - SQ 10,000 UNITS/ML VIAL SQ SCH ×2 (05:00→17:00)
[2016-06-30] MEDS: INSULIN ASPART SUPPLEMENTAL SCALE SQ SCH ×4 (06:49→21:00)
[2016-06-30] MEDS: cefTRIAXone INJ 1,000 MG in SODIUM CHLORIDE 0.9% INJ 100 ML IV SCH (08:00)
[2016-06-30] MEDS: ASPIRIN EC 81 MG TABEC PO SCH (09:00)
[2016-06-30] MEDS: POTASSIUM CHLORIDE 20 MEQ CONTROLLED RELEASE TAB PO SCH ×2 (09:00→21:00)
[2016-06-30] MEDS: SODIUM CHLORIDE 0.9% FLUSH 5 ML FLUSH FLUSH SCH ×2 (09:00→21:00)
[2016-06-30] MEDS ORDERED: CALCIUM GLUCONATE INJ 2 GM in DEXTROSE 5% IN WATER 100ML INJ 100 ML IV ONE ×2 (09:00)
[2016-06-30] MEDS: CALCIUM GLUCONATE 500 MG TAB PO SCH (09:00)
[2016-06-30] MEDS: CALCITRIOL 0.25 MCG CAP PO SCH (09:00)
[2016-06-30] MEDS: MAGNESIUM OXIDE 400 MG TAB PO SCH (09:00)
[2016-06-30] MEDS: CALCIUM ACETATE 667 MG CAP PO SCH ×3 (09:00→17:09)
[2016-06-30] MEDS: FUROSEMIDE 20 MG TAB PO SCH ×2 (09:00→17:09)
--- NOTE | 2016-06-30 09:04 | HHI.FPPN ---
Subjective Remarks Pt seen and examined this morning. No acute events overnight. Pt has been afebrile, BP 160s/70s. Pt denies chest pain, sob, abdominal pain. Lower extremity swelling is unchanged from yesterday per pt. He feels as if his weakness is improving. Pt refused lab draws and IV access this morning, but he expressed that he would willing to have labs drawn and a new IV. (Lauro Alejandro MD R2) Objective Vitals Vital Signs Date Time Temp Pulse Resp B/P Pulse Ox O2 Delivery O2 Flow Rate FiO2 06/30/16 03:59 83 06/30/16 03:49 98.2 84 16 168/74 91 06/30/16 00:15 97.6 80 20 164/72 95 06/29/16 20:06 97.5 92 20 161/70 95 06/29/16 17:45 78 20 151/68 96 06/29/16 12:12 98.3 81 19 133/63 95 06/29/16 08:46 88 19 145/65 95 I/O 06/29/16 06/29/16 06/29/16 06/30/16 06/30/16 06/30/16 07:00 15:00 23:00 07:00 15:00 23:00 Intake Total 1800 ml Output Total 900 ml 450 ml Balance 900 ml -450 ml Intake Oral 700 ml IV Total 1100 ml Output Urine Total 900 ml 450 ml # Voids 1 (Lauro Alejandro MD R2) Result Diagram: 06/29/16 0545 06/29/16 4211 Objective Remarks GENERAL: Elderly, overweight Sara male lying down in bed, asleep but easily arousable and in no obvious distress SKIN: hyperkeratotic hyperpigmented lesions present on lateral aspect of bilateral lower extremities HEENT: Atraumatic. Normocephalic. Pupils equal round and reactive. Poor dentition. no erythema noted. Airway patent. NECK: Trachea midline. Supple, nontender, no meningeal signs. CARDIOVASCULAR: Regular rate and rhythm with grade ii/vi systolic murmur, but no gallops or rubs. No JVD. RESPIRATORY: Symmetric, unlabored respirations. Clear to auscultation. Breath sounds equal bilaterally. No wheezes, rales, or rhonchi. GASTROINTESTINAL: Abdomen soft, non-tender, nondistended. MUSCULOSKELETAL: 2+ pitting edema to mid lewis BL. 1+ pitting edema to knees BL. Skin findings as above. Pain with movement of right shoulder. NEUROLOGICAL: Awake and alert. (Lauro Alejandro MD R2) A/P Assessment and Plan 80-year-old man with a history of stage IV chronic kidney disease presents with generalized weakness and labs concerning for electrolyte abnormalities. Nephrology has been consulted. dw Dr. Mcgill Discharge Planning Discharge to PT at rehab Likely within 2-3 days (Lauro Alejandro MD R2) Attending Attestation Pt. examined and case discussed with resident physician I have read the above note and agree with the assessment/plan as discussed with me I was involved in all medical decision making for this patient. Thomas Mcgill MD (Thomas Mcgill MD) Problem List: (1) Hypocalcemia Status: Acute Plan: Patient presented with hypocalcemia with a calcium of 6.8 and a protein corrected calcium of 6.6. Calcium was 6.8, protein corrected calcium 7.0 on 06/29. Administer calcium gluconate 2 g IV today We'll check a vitamin D level Consider oral calcium carbonate Recheck tomorrow morning (2) Generalized weakness Status: Acute Plan: Likely multifactorial with chronic kidney disease, electrolyte abnormalities and less likely cardiac etiology given Echocardiogram showing EF of 55-60%. Physical therapy consulted and recommended PT at rehab. Pt amenable to going to rehab. Continue to monitor patient on telemetry Electrolyte abnormalities corrected as below today: - Mag oxide 400 mg by mouth daily - Ca gluconate 2g IV 1 Infection could play a role in this, urinalysis somewhat dirty - Rocephin 1 g IV every 24 - Urine culture showing probable contaminant (3) Chronic Renal Failure / insufficiency, unspec Status: Chronic Plan: Patient with a history of CKD saw Dr. Tran in the past. Currently presenting with electrolyte abnormalities likely causing generalized weakness. Nephrology consulted, appreciate recommendations. Continue Lasix Monitor electrolytes, see above May need to consider dialysis in the future We'll hold home gabapentin 300 mg TID Imaging: Renal ultrasound showed medical renal disease and a simple right renal cyst (4) Hypokalemia Status: Acute Plan: Patient presented with hypokalemia with potassium of 3.0 on admission. Potassium was within normal limits at 3.5 on 06/29. Patient refused additional labs this morning, agreeable to lab draws KCl 20 mg by mouth every 12 hours scheduled Magnesium oxide 400 mg by mouth daily Continue to monitor (5) Right shoulder pain Status: Acute Plan: X-ray of the right shoulder with no evidence of fracture Possible rotator cuff tear - We will order a sling for right arm - Continue physical therapy - Physical therapy recommended PT at rehab. (6) Leg edema Status: Acute Plan: Patient presents with a h/o 6 months of lower extremity edema, likely due to chronic kidney disease and fluid overload. Echocardiogram showed ejection fraction 55-60% Holding home amlodipine Diurese with Lasix Fluid restriction less than 1.5 L per day (7) Essential hypertension Status: Chronic Plan: Patient on blood pressure medication for the past few years. Monitor bp Holding home amlodipine because of lower extremity edema Continue Lasix Clonidine 0.1 mg po Q6hrs prn for blood pressure over 160/90 (8) Diabetes mellitus type 2 in nonobese Status: Chronic Plan: Patient reports a history of diabetes but is not on any home medications to control his blood sugar. - Sliding scale insulin as needed - Monitor blood glucose -Hemoglobin A1c 5.2, on 06/27. (9) Nutrition, metabolism, and development symptoms Status: Acute Plan: Fluids: Fluid restrict to less than 1.5 L per day. Electrolytes: Monitor and replete: Patient to receive calcium gluconate 2 g IV 1, mag sulfate 2g IV, KCl 20mEq IV and 60 mEq PO today. Nutrition: Renal diet. (10) No contraindication to deep vein thrombosis (DVT) prophylaxis Status: Acute Plan: Heparin 5000 units subcutaneous every 12 hours (Lauro Alejandro MD R2) Problem Qualifiers (1) Right shoulder pain: Qualified Code: M25.511 - Acute pain of right shoulder Lauro Alejandro MD R2 Jun 30, 2016 09:04 Thomas Mcgill MD Jun 30, 2016 17:58 Problem Qualifiers (1) Right shoulder pain: Qualified Code: M25.511 - Acute pain of right shoulder Lauro Alejandro MD R2 Jun 30, 2016 09:04
--- NOTE | 2016-06-30 19:30 | HHI.NPPN ---
Subjective History of Present Illness 80 year old male with DM,HTN,CKD Edema Additional Remarks No acute complaints, refused labs earlier, plan for labs tomorrow in AM Review of Systems General Constitutional: Fatigue Cardiovascular Cardiac: Edema Objective Data Data 06/29/16 06/30/16 19:00 07:00 Intake Total 1800 ml Output Total 500 ml 850 ml Balance -500 ml 950 ml Intake Oral 700 ml IV Total 1100 ml Output Urine Total 500 ml 850 ml # Voids 1 Vital Signs Date Time Temp Pulse Resp B/P Pulse Ox O2 Delivery O2 Flow Rate FiO2 06/30/16 16:04 97.7 72 20 144/66 97 06/30/16 12:30 96.3 75 18 140/64 97 06/30/16 09:45 77 06/30/16 08:00 96.9 79 20 130/62 95 06/30/16 03:59 83 06/30/16 03:49 98.2 84 16 168/74 91 06/30/16 00:15 97.6 80 20 164/72 95 06/29/16 20:06 97.5 92 20 161/70 95 -: 06/29/16 0545 06/29/16 1755 Physical Exam General Appearance: Well Developed, Well Nourished Neck Neck Exam: Neck Supple Pulmonary Resp Exam: Clear Bilaterally, Breath Sounds Equal Cardiology CV Exam: Regular, Normal Sinus Rhythm Gastrointestinal/Abdomen GI Exam: Soft, Non-Tender, Positive Bowel Movement Extremeties Extremities Exam: Pitting Edema, Dependent Edema Assessment/Plan Problem List: (1) Chronic Renal Failure / insufficiency, unspec Plan: He has low K replaced yesterday follow BMP - no new labs today, check AM labs. continue to replace K as needed, follow magnesium levels Dr. Tran to follow on Saturday he is approaching [facility] - started Calcitriol 0.25 mcg add PhosLo he may need dialysis in future. (2) Diabetes mellitus type 2 in nonobese Plan: follow BG (3) Essential hypertension Plan: monitor BP Kailash Almodovar MD Jun 30, 2016 19:30
[2016-07-01] VITALS: BP 166/71; PULSE 78; RESP 19; TEMP 96.8; O2SAT 97
[2016-07-01] MEDS: HEPARIN SODIUM - SQ 10,000 UNITS/ML VIAL SQ SCH ×2 (05:00→16:30)
[2016-07-01] MEDS: INSULIN ASPART SUPPLEMENTAL SCALE SQ SCH ×4 (06:02→21:00)
--- NOTE | 2016-07-01 08:12 | HHI.FPPN ---
Subjective Remarks Per nurse report, fever last night to around 100F. Fever was responsive to Tylenol and removing bed covers. Pt reports that he feels better. He thinks he is at about 50% of full strength, and he feels better in terms of improve/ decreased weakness and dizziness. Patient complains of "spider veins" that look like "black spots" that obscure his vision and float across his field of vision , more in his left arm and his right. Patient denies any eye pain or vision loss. Patient wants help sitting up. Patient denied any chest pain, shortness of breath, nausea, vomiting, abdominal pain. Patient reports moving his bowels well. Discussed need for blood draws and reasons for his refusal. Pt agreed to blood draw today. (Pk Gallagher MD R1) Objective Vitals Vital Signs Date Time Temp Pulse Resp B/P Pulse Ox O2 Delivery O2 Flow Rate FiO2 07/01/16 00:00 96.8 78 19 166/71 97 06/30/16 20:00 96.6 76 17 163/71 97 06/30/16 16:04 97.7 72 20 144/66 97 06/30/16 12:30 96.3 75 18 140/64 97 06/30/16 09:45 77 06/30/16 08:00 96.9 79 20 130/62 95 I/O 06/30/16 06/30/16 06/30/16 07/01/16 07/01/16 07/01/16 07:00 15:00 23:00 07:00 15:00 23:00 Intake Total 1320 ml 480 ml Output Total 450 ml 650 ml 400 ml Balance -450 ml 670 ml 80 ml Intake Oral 1320 ml 480 ml Output Urine Total 450 ml 650 ml 400 ml # Bowel Movements 0 (Pk Gallagher MD R1) Result Diagram: 06/29/16 0545 06/29/16 1755 Imaging Last Impressions Renal Ultrasound 06/28/16 0000 Signed Impressions: Service Date/Time: June 10:08 - CONCLUSION: 1. Kidneys are slightly echogenic which can be seen with medical renal disease. 2. Simple right renal cyst. Gordon Kelly MD Head CT 06/27/16 1126 Signed Impressions: Service Date/Time: Monday, June 27, 2016 12:09 - CONCLUSION: Negative for an acute process Jovani Virgen MD FACR Chest X-Ray 06/27/16 1126 Signed Impressions: Service Date/Time: Monday, June 27, 2016 13:37 - CONCLUSION: No acute disease. 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 Mild spinal stenosis C3-4 and C5-6 from marginal spurring and mild disc protrusion. No acute abnormalities noted. Sam Leal MD Shoulder X-Ray 06/27/16 0000 Signed Impressions: Service Date/Time: Monday, June 27, 2016 13:40 - CONCLUSION: Degenerative changes. Fracture is not appreciated. Jovani Virgen MD FACR Objective Remarks GENERAL: Elderly, overweight Sara male lying down in bed, asleep but easily arousable and in no obvious distress SKIN: hyperkeratotic hyperpigmented lesions present on lateral aspect of bilateral lower extremities, seems improved today HEENT: Atraumatic. Normocephalic. Pupils equal round and reactive. Poor dentition. no erythema noted. Airway patent. NECK: Trachea midline. Supple, nontender, no meningeal signs. CARDIOVASCULAR: Regular rate and rhythm with grade ii/vi systolic murmur, but no gallops or rubs. No JVD. RESPIRATORY: Symmetric, unlabored respirations. Clear to auscultation. Breath sounds equal bilaterally. No wheezes, rales, or rhonchi. GASTROINTESTINAL: Abdomen soft, non-tender, nondistended. MUSCULOSKELETAL: 1+ pitting edema to mid lewis BL. Skin findings as above. NEUROLOGICAL: Awake and alert. Cranial nerves grossly intact. Motor and sensory function grossly intact. Speech at baseline. (Pk Gallagher MD R1) A/P Assessment and Plan 80-year-old man with a history of stage IV chronic kidney disease presents with generalized weakness and labs concerning for electrolyte abnormalities. Nephrology has been consulted. wdw Dr. Mcgill Discharge Planning Discharge to PT at rehab Likely within 1-2 days (Pk Gallagher MD R1) Attending Attestation Pt. examined and case discussed with resident physicians. I have read the above note and agree with the assessment/plan as discussed with me I was involved in all medical decision making for this patient Thomas Mcgill MD (Thomas Mcgill MD) Problem List: (1) Chronic Renal Failure / insufficiency, unspec Status: Chronic Plan: Patient with a history of CKD saw Dr. Tran in the past. Currently presenting with electrolyte abnormalities likely causing generalized weakness. Nephrology consulted, appreciate recommendations. Continue Lasix 20 mg by mouth twice a day Monitor and replete electrolytes, see below May need to consider dialysis in the future We'll hold home gabapentin 300 mg TID Imaging: Renal ultrasound showed medical renal disease and a simple right renal cyst (2) Hypocalcemia Status: Acute Plan: Patient presented with hypocalcemia with a calcium of 6.8 and a protein corrected calcium of 6.6. Calcium was 6.8, protein corrected calcium 7.0 on 06/29. Labs today pending; will replete as necessary vitamin D level of 23, which is within normal limits Calcitriol 0.25 g by mouth daily Calcium gluconate 500 mg by mouth daily Calcium acetate (PhosLo) 667 mg by mouth 3 times a day Recheck tomorrow morning (3) Generalized weakness Status: Acute Plan: Likely multifactorial with chronic kidney disease, electrolyte abnormalities and less likely cardiac etiology given Echocardiogram showing EF of 55-60%. Physical therapy consulted and recommended PT at rehab. Pt amenable to going to rehab. Continue to monitor patient on telemetry See electrolyte problems for electrolyte repletion. We will correct electrolyte abnormalities as necessary today when labs come back Infection could play a role in this, urinalysis somewhat dirty - Rocephin 1 g IV every 24 from 06/28/16 until 07/01/16 - Urine culture showing probable contaminant (4) Hypokalemia Status: Acute Plan: Patient presented with hypokalemia with potassium of 3.0 on admission. Potassium was within normal limits at 3.5 on 06/29. Patient labs this morning pending, agreeable to lab draws KCl 20 mEq by mouth every 12 hours scheduled Magnesium oxide 400 mg by mouth daily Continue to monitor (5) Right shoulder pain Status: Acute Plan: X-ray of the right shoulder with no evidence of fracture Possible rotator cuff tear - We will order a sling for right arm - Continue physical therapy - Physical therapy recommended PT at rehab. (6) Leg edema Status: Acute Plan: Patient presents with a h/o 6 months of lower extremity edema, likely due to chronic kidney disease and fluid overload. Echocardiogram showed ejection fraction 55-60% Holding home amlodipine Diurese with Lasix Fluid restriction less than 1.5 L per day (7) Essential hypertension Status: Chronic Plan: Patient on blood pressure medication for the past few years. Monitor bp Holding home amlodipine because of lower extremity edema Continue Lasix Clonidine 0.1 mg po Q6hrs prn for blood pressure over 160/90 (8) Diabetes mellitus type 2 in nonobese Status: Chronic Plan: Patient reports a history of diabetes but is not on any home medications to control his blood sugar. - Sliding scale insulin as needed - Monitor blood glucose - Hemoglobin A1c 5.2, on 06/27. (9) Nutrition, metabolism, and development symptoms Status: Acute Plan: Fluids: Fluid restrict to less than 1.5 L per day. Electrolytes: Monitor and replete Nutrition: Renal diet. (10) No contraindication to deep vein thrombosis (DVT) prophylaxis Status: Acute Plan: Heparin 5000 units subcutaneous every 12 hours (Pk Gallagher MD R1) Problem Qualifiers (1) Right shoulder pain: Qualified Code: M25.511 - Acute pain of right shoulder Pk Gallagher MD R1 Jul 01, 2016 08:12 Thomas Mcgill MD Jul 01, 2016 12:05
[2016-07-01] MEDS: FUROSEMIDE 20 MG TAB PO SCH ×2 (10:18→16:31)
[2016-07-01] MEDS: MAGNESIUM OXIDE 400 MG TAB PO SCH (10:18)
[2016-07-01] MEDS: POTASSIUM CHLORIDE 20 MEQ CONTROLLED RELEASE TAB PO SCH ×2 (10:19→21:16)
[2016-07-01] MEDS: ASPIRIN EC 81 MG TABEC PO SCH (10:19)
--- NOTE | 2016-07-01 10:19 | HHI.NPPN ---
Subjective History of Present Illness 80 year old male with DM,HTN,CKD Edema Additional Remarks No acute complaints, refused labs again today, willing to retry lab draws today. Review of Systems General Constitutional: Fatigue Cardiovascular Cardiac: Edema Objective Data Data 06/30/16 07/01/16 19:00 07:00 Intake Total 1320 ml 480 ml Output Total 650 ml 400 ml Balance 670 ml 80 ml Intake Oral 1320 ml 480 ml Output Urine Total 650 ml 400 ml # Bowel Movements 0 Vital Signs Date Time Temp Pulse Resp B/P Pulse Ox O2 Delivery O2 Flow Rate FiO2 07/01/16 00:00 96.8 78 19 166/71 97 06/30/16 20:00 96.6 76 17 163/71 97 06/30/16 16:04 97.7 72 20 144/66 97 06/30/16 12:30 96.3 75 18 140/64 97 -: 06/29/16 0545 06/29/16 1755 Physical Exam General Appearance: Well Developed, Well Nourished Neck Neck Exam: Neck Supple Pulmonary Resp Exam: Clear Bilaterally, Breath Sounds Equal Cardiology CV Exam: Regular, Normal Sinus Rhythm Gastrointestinal/Abdomen GI Exam: Soft, Non-Tender, Positive Bowel Movement Extremeties Extremities Exam: Pitting Edema, Dependent Edema Assessment/Plan Problem List: (1) Chronic Renal Failure / insufficiency, unspec Plan: Potassium replaced several days ago, refusing labs. Will retry lab draw today, follow electrolytes. follow BMP - no new again labs today, check AM labs. continue to replace K as needed, follow magnesium levels Dr. Tran to follow on Saturday he is approaching ESRD Sec HPTH Disease - started Calcitriol 0.25 mcg add PhosLo he may need dialysis in future. (2) Diabetes mellitus type 2 in nonobese Plan: follow BG (3) Essential hypertension Plan: monitor BP Kailash Almodovar MD Jul 01, 2016 10:19
[2016-07-01] MEDS: CALCIUM ACETATE 667 MG CAP PO SCH ×3 (10:20→16:31)
[2016-07-01] MEDS: cefTRIAXone INJ 1,000 MG in SODIUM CHLORIDE 0.9% INJ 100 ML IV SCH (10:26)
[2016-07-01] MEDS: SODIUM CHLORIDE 0.9% FLUSH 5 ML FLUSH FLUSH SCH ×2 (10:34→21:24)
[2016-07-01] MEDS: CALCITRIOL 0.25 MCG CAP PO SCH (10:54)
[2016-07-01] MEDS: ALPRAZolam 0.5 MG TAB PO PRN ×2 (10:54→21:16)
[2016-07-01] MEDS: CALCIUM GLUCONATE 500 MG TAB PO SCH (10:54)
[2016-07-01 12:00] VITALS: BP 152/67; PULSE 65; RESP 20; TEMP 98; O2SAT 99
[2016-07-01 12:49] LABS: AUTOMATED NEUTROPHIL # 7.2 TH/MM3 (1.8-7.7); BASOPHIL % 0.3 % (0.0-2.0); EOSINOPHIL # 0.7 TH/MM3 (0-0.4); EOSINOPHIL % 7.4 % (0.0-4.0); HEMO FLAGS DIFF FINAL; LYMPH % 8.8 % (9.0-44.0); LYMPHOCYTE # 0.9 TH/MM3 (1.0-4.8); MEAN CELL VOLUME 87.9 FL (80.0-100.0); MEAN CORPUSCULAR HEMOGLOBIN 28.3 PG (27.0-34.0); MEAN CORPUSCULAR HGB CONC 32.2 % (32.0-36.0); MONO % 12.3 % (0.0-8.0); NEUT % 71.2 % (16.0-70.0); PLATELET COUNT 202 TH/MM3 (150-450); RED BLOOD COUNT 2.73 MIL/MM3 (4.50-5.90); WHITE BLOOD COUNT 10.1 TH/MM3 (4.0-11.0)
[2016-07-01 12:50] LABS: ALKALINE PHOSPHATASE 176 U/L (45-117); ALT (GPT) 88 U/L (12-78); ANION GAP 11 MEQ/L (5-15); AST (GOT) 136 U/L (15-37); BICARBONATE 21.8 MEQ/L (21.0-32.0); BLOOD UREA NITROGEN 61 MG/DL (7-18); CALCIUM-PROTEIN CORRECTED 8.3 MG/DL (8.5-10.1); CHLORIDE 109 MEQ/L (98-107); GLOMERULAR FILTRATION RATE 18 ML/MIN (>89); POTASSIUM 3.2 MEQ/L (3.5-5.1); SODIUM (NA) 142 MEQ/L (136-145); TOTAL BILIRUBIN ADULT 0.9 MG/DL (0.2-1.0)
[2016-07-01] MEDS ORDERED: POTASSIUM CHLORIDE 10 MEQ CONTROLLED RELEASE TAB PO ONE (13:45)
[2016-07-01] MEDS: hydrALAZINE HCL 25 MG TAB PO SCH ×2 (14:15→21:16)
[2016-07-01] MEDS: CALCIUM CARBONATE 500 MG CHEWABLE TAB CHEW SCH ×2 (14:15→21:19)
[2016-07-01 16:00] VITALS: BP 159/67; PULSE 65; RESP 20; TEMP 97.8; O2SAT 98
[2016-07-01 20:00] VITALS: BP 150/60; PULSE 63; RESP 19; TEMP 96.8; O2SAT 98
[2016-07-02] VITALS (7 sets, daily range): BP systolic 143–154; BP diastolic 58–87; PULSE 60–67; RESP 15–19; TEMP 96.2–97.8; O2SAT 98–100
[2016-07-02] MEDS: HEPARIN SODIUM - SQ 10,000 UNITS/ML VIAL SQ SCH ×2 (05:00→17:24)
[2016-07-02] MEDS: INSULIN ASPART SUPPLEMENTAL SCALE SQ SCH ×4 (05:53→20:58)
[2016-07-02] MEDS: ALPRAZolam 0.5 MG TAB PO PRN (07:39)
[2016-07-02] MEDS: cefTRIAXone INJ 1,000 MG in SODIUM CHLORIDE 0.9% INJ 100 ML IV SCH ×2 (08:00→12:08)
[2016-07-02] MEDS: POTASSIUM CHLORIDE 20 MEQ CONTROLLED RELEASE TAB PO SCH ×3 (09:00→20:55)
[2016-07-02] MEDS: FUROSEMIDE 20 MG TAB PO SCH ×3 (09:00→17:36)
[2016-07-02] MEDS: hydrALAZINE HCL 25 MG TAB PO SCH ×4 (09:00→20:55)
[2016-07-02] MEDS: CALCIUM ACETATE 667 MG CAP PO SCH ×4 (09:00→17:36)
[2016-07-02] MEDS: CALCIUM CARBONATE 500 MG CHEWABLE TAB CHEW SCH ×3 (09:00→20:55)
[2016-07-02] MEDS: CALCITRIOL 0.25 MCG CAP PO SCH ×2 (09:00→12:04)
[2016-07-02] MEDS: ASPIRIN EC 81 MG TABEC PO SCH ×2 (09:00→12:04)
[2016-07-02] MEDS: SODIUM CHLORIDE 0.9% FLUSH 5 ML FLUSH FLUSH SCH ×3 (09:00→20:59)
[2016-07-02] MEDS: CALCIUM GLUCONATE 500 MG TAB PO SCH ×2 (09:00→12:05)
[2016-07-02] MEDS: MAGNESIUM OXIDE 400 MG TAB PO SCH ×2 (09:00→12:04)
--- NOTE | 2016-07-02 09:40 | RADRPT ---
EXAM DATE/TIME: 07/02/2016 08:02 [facility] COMPARISON: No previous studies available for comparison. INDICATIONS: Increased lab values. MEDICAL HISTORY: Congestive heart failure. Hypertension. Diabetes mellitus type 2. Renal failure. SURGICAL HISTORY: None. ENCOUNTER: Initial ACUITY: 1 day PAIN SCORE: 1/10 LOCATION: Right upper quadrant MEASUREMENTS: LIVER: 16.3 cm length COMMON DUCT: 6 mm RIGHT KIDNEY: 9.3 x 4.5 x 4.7 cm SPLEEN: Not visualized. FINDINGS: There is no evidence for intrahepatic ductal dilatation. Liver is somewhat echogenic. There is a thickened gallbladder wall with a 1.9 cm stone in the neck of the gallbladder. The pancreas is obscured. There are two cysts in the right kidney, largest measuring 1.2 cm without hydronephrosis. CONCLUSION: 1. Echogenic liver with intrahepatic ductal dilatation. 2. Pancreas is obscured. 3. Markedly thickened gallbladder wall with gallstone evident. Jovani Virgen MD FACR on July 02, 2016 at 9:19 Board Certified Radiologist. This report was verified electronically.
--- NOTE | 2016-07-02 11:22 | HHI.FPPN ---
Subjective Remarks No acute events overnight. Vital signs remained stable. Patient denies any new concerns at this time. He states he refused labs because he was unhappy that he had not received breakfast. Now that his diet has been resumed, he is amendable to having labs drawn. He denies any lightheadedness, shortness of breath, confusion, chest pain, abdominal pain, or shortness of breath. Objective Vitals Vital Signs Date Time Temp Pulse Resp B/P Pulse Ox O2 Delivery O2 Flow Rate FiO2 07/02/16 08:00 97.6 63 16 154/58 99 07/02/16 06:21 64 07/02/16 04:00 96.4 67 19 143/61 99 07/02/16 00:00 96.9 65 18 150/87 100 07/01/16 20:00 96.8 63 19 150/60 98 07/01/16 16:00 97.8 65 20 159/67 98 07/01/16 12:00 98.0 65 20 152/67 99 I/O 07/01/16 07/01/16 07/01/16 07/02/16 07/02/16 07/02/16 07:00 15:00 23:00 07:00 15:00 23:00 Intake Total 720 ml 240 ml 0 ml Output Total 500 ml 1600 ml 800 ml Balance 220 ml -1360 ml -800 ml Intake Oral 720 ml 240 ml 0 ml Output Urine Total 500 ml 1600 ml 800 ml # Bowel Movements 0 0 Result Diagram: 07/01/16 1204 07/01/16 1204 Objective Remarks GENERAL: Elderly, overweight Sara male lying in bed, pleasant, in no acute distress SKIN: hyperkeratotic hyperpigmented lesions present on lateral aspect of bilateral lower extremities, improved today HEENT: Atraumatic. Normocephalic. Pupils equal round and reactive. Poor dentition. no erythema noted. Airway patent. NECK: Trachea midline. Supple, nontender, no meningeal signs. CARDIOVASCULAR: Regular rate and rhythm with grade II systolic murmur RESPIRATORY: Symmetric, unlabored respirations. Clear to auscultation. Breath sounds equal bilaterally. No wheezes, rales, or rhonchi. GASTROINTESTINAL: Abdomen soft, non-tender, nondistended. MUSCULOSKELETAL: 1+ pitting edema to mid lewis BL. Skin findings as above. NEUROLOGICAL: Awake and alert. Cranial nerves grossly intact. Motor and sensory function grossly intact. Speech at baseline. A/P Assessment and Plan 80-year-old man with a history of stage IV chronic kidney disease presents with generalized weakness and labs concerning for electrolyte abnormalities. joaquin Mcgill Discharge Planning Anticipate discharge to rehabilitation unit today or tomorrow pending placement Problem List: (1) Chronic Renal Failure / insufficiency, unspec Status: Chronic Plan: Patient CKD currently presenting with electrolyte abnormalities likely contributing to his generalized weakness. Nephrology following, appreciate recommendations. Continue Lasix 20 mg by mouth twice a day Monitor and replete electrolytes, see below May need to consider dialysis in the future We'll hold home gabapentin 300 mg TID as this also could be contributing to his weakness. Consider restarting at renally dosed amount if pt has neuropathic pain. Imaging: Renal ultrasound showed medical renal disease and a simple right renal cyst (2) Hypocalcemia Status: Acute Plan: Improving. Ca 8.2 yesterday, labs today pending. Patient presented with hypocalcemia with a calcium of 6.8 and a protein corrected calcium of 6.6. vitamin D level of 23, which is within normal limits Calcitriol 0.25 g by mouth daily Calcium gluconate 500 mg by mouth daily Calcium acetate (PhosLo) 667 mg by mouth 3 times a day Recheck tomorrow morning (3) Generalized weakness Status: Acute Plan: Likely multifactorial with chronic kidney disease, electrolyte abnormalities and less likely cardiac etiology given Echocardiogram showing EF of 55-60%. Physical therapy consulted and recommended PT at rehab-- case management consulted to assist with placement Continue to monitor patient on telemetry See electrolyte problems for electrolyte repletion. (4) Hypokalemia Status: Acute Plan: Improving, 3.2 yesterday. Patient presented with hypokalemia with potassium of 3.0 on admission. Patient labs this morning pending, agreeable to lab draws KCl 20 mEq by mouth every 12 hours scheduled Magnesium oxide 400 mg by mouth daily Continue to monitor (5) Right shoulder pain Status: Acute Plan: X-ray of the right shoulder with no evidence of fracture, suspect cuff tear. - Sling for comfort - Continue physical therapy - Physical therapy recommended PT at rehab. (6) Leg edema Status: Acute Plan: Patient presents with a h/o 6 months of lower extremity edema, likely due to chronic kidney disease and fluid overload. Echocardiogram showed ejection fraction 55-60% Holding home amlodipine Diurese with Lasix Fluid restriction less than 1.5 L per day (7) Essential hypertension Status: Chronic Plan: Pt on Amlodipine 10mg which has been held d/t LE edema. BP's currently labile. Therefore, recommend starting PO hydralazine 10mg QID at this time. - Advance hydralazine to 25mg QID if well tolerated Continue Lasix Clonidine 0.1 mg po Q6hrs prn for blood pressure over 160/90 (8) Diabetes mellitus type 2 in nonobese Status: Chronic Plan: Patient reports a history of diabetes but is not on any home medications to control his blood sugar. - Sliding scale insulin as needed - Monitor blood glucose - Hemoglobin A1c 5.2, on 06/27. (9) Nutrition, metabolism, and development symptoms Status: Acute Plan: Fluids: Fluid restrict to less than 1.5 L per day. Electrolytes: Monitor and replete Nutrition: Renal diet. (10) No contraindication to deep vein thrombosis (DVT) prophylaxis Status: Acute Plan: Heparin 5000 units subcutaneous every 12 hours Problem Qualifiers (1) Right shoulder pain: Qualified Code: M25.511 - Acute pain of right shoulder Warren Sandoval MD R3 Jul 02, 2016 11:22 Warren Sandoval MD R3 Jul 02, 2016 11:22
[2016-07-02] MEDS ORDERED: hydrALAZINE HCL 10 MG TAB PO SCH (14:45)
[2016-07-02 15:32] LABS: WHITE BLOOD COUNT 9.4 TH/MM3 (4.0-11.0)
[2016-07-02 15:33] LABS: AUTOMATED NEUTROPHIL # 6.6 TH/MM3 (1.8-7.7); BASOPHIL # 0.1 TH/MM3 (0-0.2); BASOPHIL % 0.6 % (0.0-2.0); EOSINOPHIL # 0.8 TH/MM3 (0-0.4); HEMATOCRIT 25.6 % (39.0-51.0); HEMO FLAGS DIFF FINAL; LYMPH % 8.1 % (9.0-44.0); LYMPHOCYTE # 0.8 TH/MM3 (1.0-4.8); MEAN CELL VOLUME 87.8 FL (80.0-100.0); MEAN CORPUSCULAR HEMOGLOBIN 28.3 PG (27.0-34.0); MEAN CORPUSCULAR HGB CONC 32.2 % (32.0-36.0); MONO % 12.5 % (0.0-8.0); NEUT % 69.8 % (16.0-70.0); PLATELET COUNT 256 TH/MM3 (150-450); RED BLOOD COUNT 2.92 MIL/MM3 (4.50-5.90); RED CELL DISTRIBUTION WIDTH 16.1 % (11.6-17.2)
[2016-07-02 16:00] LABS: ALT (GPT) 70 U/L (12-78); ANION GAP 10 MEQ/L (5-15); AST (GOT) 64 U/L (15-37); BICARBONATE 23.1 MEQ/L (21.0-32.0); BLOOD UREA NITROGEN 64 MG/DL (7-18); CHLORIDE 110 MEQ/L (98-107); GLOMERULAR FILTRATION RATE 18 ML/MIN (>89); MAGNESIUM 2.2 MG/DL (1.5-2.5); POTASSIUM 4.1 MEQ/L (3.5-5.1); SODIUM (NA) 143 MEQ/L (136-145)
[2016-07-02 16:03] LABS: ALKALINE PHOSPHATASE 211 U/L (45-117); CALCIUM-PROTEIN CORRECTED 8.4 MG/DL (8.5-10.1); TOTAL BILIRUBIN ADULT 0.6 MG/DL (0.2-1.0)
--- NOTE | 2016-07-02 16:37 | HHI.NPPN ---
Subjective History of Present Illness 80 year old male with DM,HTN,CKD Edema Additional Remarks Patient is alert, no SOB, not eating well, not in distress. Review of Systems General Constitutional: Fatigue Cardiovascular Cardiac: Edema Objective Data Data 07/01/16 07/02/16 19:00 07:00 Intake Total 720 ml 240 ml Output Total 500 ml 2400 ml Balance 220 ml -2160 ml Intake Oral 720 ml 240 ml Output Urine Total 500 ml 2400 ml # Bowel Movements 0 Vital Signs Date Time Temp Pulse Resp B/P Pulse Ox O2 Delivery O2 Flow Rate FiO2 07/02/16 16:11 96.2 66 16 151/63 99 07/02/16 12:00 97.8 63 16 151/60 98 07/02/16 08:00 97.6 63 16 154/58 99 07/02/16 06:21 64 07/02/16 04:00 96.4 67 19 143/61 99 07/02/16 00:00 96.9 65 18 150/87 100 07/01/16 20:00 96.8 63 19 150/60 98 -: 07/02/16 1502 07/02/16 1502 Physical Exam General Appearance: No Acute Distress, Comfortable Neck Neck Exam: Neck Supple Pulmonary Resp Exam: Clear Bilaterally, Breath Sounds Equal Cardiology CV Exam: Regular, Normal Sinus Rhythm Gastrointestinal/Abdomen GI Exam: Soft, Non-Tender, Positive Bowel Movement Extremeties Extremities Exam: Pitting Edema, Dependent Edema Neurologic Neuro Exam: Alert, Awake Psychiatric Psych Exam: Appropriate Responses Assessment/Plan Problem List: (1) Chronic Renal Failure / insufficiency, unspec Plan: Patient has advance stage 4 chronic kidney disease. Creatinine is almost same. K is now normalized. Encourage oral intake. Continue Lasix and Kcl supplement. (2) Diabetes mellitus type 2 in nonobese Plan: follow BG (3) Essential hypertension Plan: monitor BP, Hydralazine increased Ranjeet Tran MD Jul 02, 2016 16:37
[2016-07-03] VITALS (7 sets, daily range): BP systolic 123–184; BP diastolic 49–105; PULSE 60–68; RESP 15–18; TEMP 95.1–99.8; O2SAT 96–99
[2016-07-03] MEDS: HEPARIN SODIUM - SQ 10,000 UNITS/ML VIAL SQ SCH ×2 (04:43→17:00)
[2016-07-03] MEDS: INSULIN ASPART SUPPLEMENTAL SCALE SQ SCH ×2 (06:09→11:00)
[2016-07-03] MEDS: CALCITRIOL 0.25 MCG CAP PO SCH (09:00)
--- NOTE | 2016-07-03 09:20 | HHI.FPPN ---
Subjective Remarks Pt seen and examined this morning. Pt refusing labs. He reports that he was misinformed about requiring an additional procedure. He reports that he will allow his labs to be drawn to check his electrolyte levels. He denies chest pain, difficulty breathing, abdominal pain. He reports that lower extremity swelling is significanly improved. He has no other questions or concerns. manager respiratory care reports that she will speak with pt about chosing a fcaility that is covered by his insurance. I explained this to the pt and he is agreeable with this plan. (Lauro Alejandro MD R2) Objective Vitals Vital Signs Date Time Temp Pulse Resp B/P Pulse Ox O2 Delivery O2 Flow Rate FiO2 07/03/16 08:08 99.8 62 18 133/60 98 07/03/16 05:58 62 133/63 07/03/16 04:00 98.7 68 17 184/105 97 07/03/16 00:00 96.0 66 15 151/60 96 07/02/16 20:00 96.6 60 15 153/64 100 07/02/16 16:11 96.2 66 16 151/63 99 07/02/16 12:00 97.8 63 16 151/60 98 I/O 07/02/16 07/02/16 07/02/16 07/03/16 07/03/16 07/03/16 07:00 15:00 23:00 07:00 15:00 23:00 Intake Total 0 ml 420 ml 200 ml Output Total 800 ml 650 ml 700 ml 650 ml Balance -800 ml -230 ml -700 ml -450 ml Intake Oral 0 ml 420 ml 200 ml Output Urine Total 800 ml 650 ml 700 ml 650 ml # Voids 1 # Bowel Movements 0 1 (Lauro Alejandro MD R2) Result Diagram: 07/02/16 1502 07/02/16 1502 Objective Remarks GENERAL: Elderly, overweight Sara male lying in bed, pleasant, in no acute distress SKIN: hyperkeratotic hyperpigmented lesions present on lateral aspect of bilateral lower extremities, improved today HEENT: Atraumatic. Normocephalic. Pupils equal round and reactive. Poor dentition. no erythema noted. Airway patent. NECK: Trachea midline. Supple, nontender, no meningeal signs. CARDIOVASCULAR: Regular rate and rhythm with grade II systolic murmur RESPIRATORY: Symmetric, unlabored respirations. Clear to auscultation. Breath sounds equal bilaterally. No wheezes, rales, or rhonchi. GASTROINTESTINAL: Abdomen soft, non-tender, nondistended. MUSCULOSKELETAL: 1+ pitting edema to mid lewis BL. Skin findings as above. NEUROLOGICAL: Awake and alert. Cranial nerves grossly intact. Motor and sensory function grossly intact. Speech at baseline. (Lauro Alejandro MD R2) A/P Assessment and Plan 80-year-old man with a history of stage IV chronic kidney disease presents with generalized weakness and electrolyte abnormalities. dw Dr. Mcgill Discharge Planning Anticipate discharge to rehabilitation unit today or tomorrow pending placement and normalization of electrolytes. (Lauro Alejandro MD R2) Attending Attestation Patient examined and case discussed with resident physician I have read the above note and agree with the assessment/plan as discussed with me I was involved in all medical decision making for this patient Thomas Mcgill M.D. (Thomas Mcgill MD) Problem List: (1) Hepatitis C Status: Acute Plan: Hepatitis profile results significant for positive hepatitis C -Will discuss with pt, per EMR review there is no prior history of Hepatitis C -Ordered confirmatory testing with hepatitis C RNA genotype and quantitative (2) Chronic Renal Failure / insufficiency, unspec Status: Chronic Plan: Patient CKD currently presenting with electrolyte abnormalities likely contributing to his generalized weakness. Nephrology following, appreciate recommendations. Continue Lasix 20 mg by mouth twice a day Monitor and replete electrolytes, see below May need to consider dialysis in the future We'll hold home gabapentin 300 mg TID as this also could be contributing to his weakness. Consider restarting at renally dosed amount if pt has neuropathic pain. Imaging: Renal ultrasound showed medical renal disease and a simple right renal cyst (3) Hypocalcemia Status: Acute Plan: Improving. Patient presented with hypocalcemia with a calcium of 6.8 and a protein corrected calcium of 6.6. Pt initially refused to get labs drawn this morning, is now agreeable to having labs drawn. vitamin D level of 23, which is within normal limits Calcitriol 0.25 g by mouth daily Calcium gluconate 500 mg by mouth daily Calcium acetate (PhosLo) 667 mg by mouth 3 times a day Recheck tomorrow morning (4) Generalized weakness Status: Acute Plan: Likely multifactorial with chronic kidney disease, electrolyte abnormalities and less likely cardiac etiology given Echocardiogram showing EF of 55-60%. Physical therapy consulted and recommended PT at rehab-- case management consulted to assist with placement Continue to monitor patient on telemetry See electrolyte problems for electrolyte repletion. (5) Hypokalemia Status: Acute Plan: Improving, Patient presented with hypokalemia with potassium of 3.0 on admission. Labs pending for this morning. Patient labs this morning pending, agreeable to lab draws KCl 20 mEq by mouth every 12 hours scheduled Magnesium oxide 400 mg by mouth daily Continue to monitor (6) Right shoulder pain Status: Acute Plan: X-ray of the right shoulder with no evidence of fracture, suspect cuff tear. - Sling for comfort - Continue physical therapy - Physical therapy recommended PT at rehab. (7) Leg edema Status: Acute Plan: Patient presents with a h/o 6 months of lower extremity edema, likely due to chronic kidney disease and fluid overload. Echocardiogram showed ejection fraction 55-60% Holding home amlodipine Diurese with Lasix Fluid restriction less than 1.5 L per day (8) Essential hypertension Status: Chronic Plan: Pt on Amlodipine 10mg which has been held d/t LE edema. BP's currently labile. Therefore, recommend starting PO hydralazine 10mg QID at this time. Hydralazine 25mg QID Continue Lasix Clonidine 0.1 mg po Q6hrs prn for blood pressure over 160/90 (9) Diabetes mellitus type 2 in nonobese Status: Chronic Plan: Patient reports a history of diabetes but is not on any home medications to control his blood sugar. - Hemoglobin A1c 5.2, on 06/27. -Will discontinue sliding scale insulin as patient has not required any insulin and blood sugars have been within normal limits (10) Nutrition, metabolism, and development symptoms Status: Acute Plan: Fluids: Fluid restrict to less than 1.5 L per day. Electrolytes: Monitor and replete, see above Nutrition: Renal diet. (11) No contraindication to deep vein thrombosis (DVT) prophylaxis Status: Acute Plan: Heparin 5000 units subcutaneous every 12 hours (Lauro Alejandro MD R2) Problem Qualifiers (1) Right shoulder pain: Qualified Code: M25.511 - Acute pain of right shoulder Lauro Alejandro MD R2 Jul 03, 2016 09:20 Thomas Mcgill MD Jul 03, 2016 16:50
[2016-07-03] MEDS: ASPIRIN EC 81 MG TABEC PO SCH (09:38)
[2016-07-03] MEDS: hydrALAZINE HCL 25 MG TAB PO SCH ×4 (09:38→20:03)
[2016-07-03] MEDS: CALCIUM CARBONATE 500 MG CHEWABLE TAB CHEW SCH ×2 (09:39→20:03)
[2016-07-03] MEDS: POTASSIUM CHLORIDE 20 MEQ CONTROLLED RELEASE TAB PO SCH ×2 (09:39→20:03)
[2016-07-03] MEDS: CALCIUM ACETATE 667 MG CAP PO SCH ×3 (09:39→17:30)
[2016-07-03] MEDS: MAGNESIUM OXIDE 400 MG TAB PO SCH (09:39)
[2016-07-03] MEDS: CALCIUM GLUCONATE 500 MG TAB PO SCH (09:39)
[2016-07-03] MEDS: SODIUM CHLORIDE 0.9% FLUSH 5 ML FLUSH FLUSH SCH ×2 (09:39→20:14)
[2016-07-03] MEDS: cefTRIAXone INJ 1,000 MG in SODIUM CHLORIDE 0.9% INJ 100 ML IV SCH (09:40)
[2016-07-03] MEDS: FUROSEMIDE 20 MG TAB PO SCH ×2 (09:40→17:31)
--- NOTE | 2016-07-03 15:37 | HHI.NPPN ---
Subjective History of Present Illness 80 year old male with DM,HTN,CKD Edema Additional Remarks Patient is alert, not eating well, no SOB. Review of Systems General Constitutional: Fatigue Cardiovascular Cardiac: Edema Objective Data Data 07/02/16 07/03/16 19:00 07:00 Intake Total 420 ml 200 ml Output Total 650 ml 1350 ml Balance -230 ml -1150 ml Intake Oral 420 ml 200 ml Output Urine Total 650 ml 1350 ml # Voids 1 # Bowel Movements 1 Vital Signs Date Time Temp Pulse Resp B/P Pulse Ox O2 Delivery O2 Flow Rate FiO2 07/03/16 12:00 97.6 61 18 136/61 97 07/03/16 08:08 99.8 62 18 133/60 98 07/03/16 05:58 62 133/63 07/03/16 04:00 98.7 68 17 184/105 97 07/03/16 00:00 96.0 66 15 151/60 96 07/02/16 20:00 96.6 60 15 153/64 100 07/02/16 16:11 96.2 66 16 151/63 99 -: 07/02/16 1502 07/02/16 1502 Physical Exam General Appearance: No Acute Distress, Comfortable Neck Neck Exam: Neck Supple Pulmonary Resp Exam: Clear Bilaterally, Breath Sounds Equal Cardiology CV Exam: Regular, Normal Sinus Rhythm Gastrointestinal/Abdomen GI Exam: Soft, Non-Tender, Positive Bowel Movement Extremeties Extremities Exam: Pitting Edema, Dependent Edema Neurologic Neuro Exam: Alert, Awake Psychiatric Psych Exam: Appropriate Responses Assessment/Plan Problem List: (1) Chronic Renal Failure / insufficiency, unspec Plan: Patient has advance stage 4 chronic kidney disease. Encourage oral intake. Continue Lasix and Kcl supplement. No new BMP, will get in AM. (2) Diabetes mellitus type 2 in nonobese Plan: follow BG (3) Essential hypertension Plan: monitor BP, Hydralazine increased Ranjeet Tran MD Jul 03, 2016 15:37
[2016-07-03 16:56] LABS: HEMATOCRIT 26.1 % (39.0-51.0); MEAN CELL VOLUME 88.1 FL (80.0-100.0); MEAN CORPUSCULAR HEMOGLOBIN 28.3 PG (27.0-34.0); MEAN CORPUSCULAR HGB CONC 32.1 % (32.0-36.0); PLATELET COUNT 282 TH/MM3 (150-450); RED BLOOD COUNT 2.96 MIL/MM3 (4.50-5.90); RED CELL DISTRIBUTION WIDTH 15.8 % (11.6-17.2); REVIEW FLAG FINAL; WHITE BLOOD COUNT 9.6 TH/MM3 (4.0-11.0)
[2016-07-03] MEDS: ALPRAZolam 0.5 MG TAB PO PRN (17:44)
[2016-07-03 17:45] LABS: ALKALINE PHOSPHATASE 259 U/L (45-117); ALT (GPT) 63 U/L (12-78); ANION GAP 9 MEQ/L (5-15); AST (GOT) 58 U/L (15-37); BICARBONATE 24.1 MEQ/L (21.0-32.0); BLOOD UREA NITROGEN 68 MG/DL (7-18); CHLORIDE 108 MEQ/L (98-107); GLOMERULAR FILTRATION RATE 20 ML/MIN (>89); MAGNESIUM 2.3 MG/DL (1.5-2.5); POTASSIUM 4.6 MEQ/L (3.5-5.1); SODIUM (NA) 141 MEQ/L (136-145); TOTAL BILIRUBIN ADULT 0.5 MG/DL (0.2-1.0)
[2016-07-04] VITALS: BP 133/73; PULSE 58; RESP 16; TEMP 96.2; O2SAT 99
[2016-07-04 04:00] VITALS: BP 138/58; PULSE 60; RESP 16; TEMP 97.8; O2SAT 98
[2016-07-04] MEDS: HEPARIN SODIUM - SQ 10,000 UNITS/ML VIAL SQ SCH ×2 (05:00→16:19)
[2016-07-04 08:00] VITALS: BP 141/54; PULSE 108; RESP 16; TEMP 96.5; O2SAT 98
[2016-07-04] MEDS: CALCIUM CARBONATE 500 MG CHEWABLE TAB CHEW SCH ×2 (09:00→21:00)
[2016-07-04] MEDS: CALCIUM ACETATE 667 MG CAP PO SCH ×3 (09:00→16:28)
[2016-07-04] MEDS: CALCITRIOL 0.25 MCG CAP PO SCH (09:00)
--- NOTE | 2016-07-04 09:37 | HHI.FPPN ---
Subjective Remarks No acute events overnight. Afebrile and vital signs stable overnight. Patient denies any shortness of breath, chest pain, lightheadedness, dizziness, weakness , leg pain, nausea, vomiting, abdominal pain. Patient reports good appetite, and that he is moving his bowels well. Patient is eager to get to rehabilitation. GI consulted for transaminitis. Patient found to be hep C positive. Ultrasound concerning for cholelithiasis with gallbladder wall thickening. HIDA scan planned for today. (Pk Gallagher MD R1) Objective Vitals Vital Signs Date Time Temp Pulse Resp B/P Pulse Ox O2 Delivery O2 Flow Rate FiO2 07/04/16 04:00 97.8 60 16 138/58 98 07/04/16 00:00 96.2 58 16 133/73 99 07/03/16 20:00 95.1 60 18 137/49 99 07/03/16 16:00 97.0 61 18 123/60 97 07/03/16 12:00 97.6 61 18 136/61 97 I/O 07/03/16 07/03/16 07/03/16 07/04/16 07/04/16 07/04/16 07:00 15:00 23:00 07:00 15:00 23:00 Intake Total 200 ml 720 ml 350 ml 150 ml Output Total 650 ml 1000 ml 400 ml 100 ml Balance -450 ml -280 ml -50 ml 50 ml Intake Oral 200 ml 720 ml 350 ml 150 ml Output Urine Total 650 ml 1000 ml 400 ml 100 ml # Bowel Movements 0 1 (Pk Gallagher MD R1) Result Diagram: 07/03/16 1611 07/03/16 1611 Imaging Last Impressions Liver Ultrasound 07/02/16 0000 Signed Impressions: Service Date/Time: Saturday, July 02, 2016 08:02 - CONCLUSION: 1. Echogenic liver with intrahepatic ductal dilatation. 2. Pancreas is obscured. 3. Markedly thickened gallbladder wall with gallstone evident. Jovani Virgen MD FACR Renal Ultrasound 06/28/16 0000 Signed Impressions: Service Date/Time: June 10:08 - CONCLUSION: 1. Kidneys are slightly echogenic which can be seen with medical renal disease. 2. Simple right renal cyst. Gordon Kelly MD Head CT 06/27/16 1126 Signed Impressions: Service Date/Time: Monday, June 27, 2016 12:09 - CONCLUSION: Negative for an acute process Jovani Virgen MD FACR Chest X-Ray 06/27/16 1126 Signed Impressions: Service Date/Time: Monday, June 27, 2016 13:37 - CONCLUSION: No acute disease. 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 Mild spinal stenosis C3-4 and C5-6 from marginal spurring and mild disc protrusion. No acute abnormalities noted. Sam Leal MD Shoulder X-Ray 06/27/16 0000 Signed Impressions: Service Date/Time: Monday, June 27, 2016 13:40 - CONCLUSION: Degenerative changes. Fracture is not appreciated. Jovani Virgen MD FACR Objective Remarks GENERAL: Elderly, overweight Sara male lying in bed, pleasant and in a good mood today, talkative, in no acute distress SKIN: hyperkeratotic hyperpigmented lesions present on lateral aspect of bilateral lower extremities, improved today. Patient also has these lesions on his elbows bilaterally. HEENT: Atraumatic. Normocephalic. Pupils equal round and reactive. Poor dentition. No oropharyngeal erythema noted. Airway patent. NECK: Trachea midline. Supple, nontender, no meningeal signs. CARDIOVASCULAR: Regular rate and rhythm with grade II/ systolic murmur RESPIRATORY: Symmetric, unlabored respirations. Clear to auscultation. Breath sounds equal bilaterally. No wheezes, rales, or rhonchi. GASTROINTESTINAL: Abdomen soft, non-tender, nondistended. MUSCULOSKELETAL: pitting edema appears resolved today. Skin findings as above. NEUROLOGICAL: Awake and alert. Cranial nerves grossly intact. Motor and sensory function grossly intact. Speech at baseline. (Pk Gallagher MD R1) A/P Assessment and Plan 80-year-old man with a history of stage IV chronic kidney disease presents with generalized weakness and electrolyte abnormalities. joaquin Mcgill Discharge Planning Anticipate discharge to rehabilitation unit today or tomorrow pending placement and normalization of electrolytes. (Pk Gallagher MD R1) Attending Attestation Pt. examined and cased discussed with resident physician I have read the above note and agree with the assessment/plan as discussed with me I was involved in all medical decision making for this patient Thomas Mcgill MD (Thomas Mcgill MD) Problem List: (1) Cholelithiasis Status: Acute Plan: GI consulted for elevated LFTs. Appreciate recommendations below. US revealed Echogenic liver with intrahepatic ductal dilatation. Markedly thickened gallbladder wall with gallstone evident. - HIDA pending - Further recommendations to follow based on results above (2) Hepatitis C Status: Acute Plan: Hepatitis profile results significant for positive hepatitis C. Per EMR review there is no prior history of Hepatitis C. Pt is treatment emili. -Will discuss with pt -Ordered confirmatory testing with hepatitis C RNA genotype and quantitative. PCR Pending (3) Chronic Renal Failure / insufficiency, unspec Status: Chronic Plan: Patient CKD currently presenting with electrolyte abnormalities likely contributing to his generalized weakness. Nephrology following, appreciate recommendations. Encourage by mouth intake Continue Lasix 20 mg by mouth twice a day with potassium supplement Monitor and replete electrolytes, see below May need to consider dialysis in the future We'll hold home gabapentin 300 mg TID as this also could be contributing to his weakness. Consider restarting at renally dosed amount if pt has neuropathic pain. (4) Hypocalcemia Status: Acute Plan: Improving. Patient presented with hypocalcemia with a calcium of 6.8 and a protein corrected calcium of 6.6. Pt initially refused to get labs drawn this morning, is now agreeable to having labs drawn. Calcium today 8.6. Protein corrected calcium today 8.3. vitamin D level of 23, which is within normal limits Calcitriol 0.25 g by mouth daily Calcium gluconate 500 mg by mouth daily Calcium acetate (PhosLo) 667 mg by mouth 3 times a day Recheck tomorrow morning (5) Generalized weakness Status: Acute Plan: Likely multifactorial with chronic kidney disease, electrolyte abnormalities and less likely cardiac etiology given Echocardiogram showing EF of 55-60%. Physical therapy consulted and recommended PT at rehab-- case management consulted to assist with placement Continue to monitor patient on telemetry See electrolyte problems for electrolyte repletion. (6) Hypokalemia Status: Acute Plan: Improving, Patient presented with hypokalemia with potassium of 3.0 on admission. Potassium today 4.4. Magnesium today 2.4. Patient labs this morning pending, agreeable to lab draws KCl 20 mEq by mouth every 12 hours scheduled Magnesium oxide 400 mg by mouth daily Continue to monitor (7) Right shoulder pain Status: Acute Plan: X-ray of the right shoulder with no evidence of fracture, suspect cuff tear. - Sling for comfort - Continue physical therapy - Physical therapy recommended PT at rehab. (8) Leg edema Status: Resolved Plan: Patient presents with a h/o 6 months of lower extremity edema, likely due to chronic kidney disease and fluid overload. No pitting edema on exam today. Echocardiogram showed ejection fraction 55-60% Holding home amlodipine Diurese with Lasix Fluid restriction less than 1.5 L per day (9) Essential hypertension Status: Chronic Plan: Pt on Amlodipine 10mg which has been held d/t LE edema. BP's currently labile. Hydralazine 25mg by mouth QID Continue Lasix Clonidine 0.1 mg po Q6hrs prn for blood pressure over 160/90 (10) Diabetes mellitus type 2 in nonobese Status: Chronic Plan: Patient reports a history of diabetes but is not on any home medications to control his blood sugar. - Hemoglobin A1c 5.2, on 06/27. -Will discontinue sliding scale insulin as patient has not required any insulin and blood sugars have been within normal limits (11) Nutrition, metabolism, and development symptoms Status: Acute Plan: Fluids: Fluid restrict to less than 1.5 L per day. Electrolytes: Monitor and replete, see above Nutrition: Renal diet. (12) No contraindication to deep vein thrombosis (DVT) prophylaxis Status: Acute Plan: Heparin 5000 units subcutaneous every 12 hours (Pk Gallagher MD R1) Problem Qualifiers (1) Right shoulder pain: Qualified Code: M25.511 - Acute pain of right shoulder Pk Gallagher MD R1 Jul 04, 2016 09:37 Thomas Mcgill MD Jul 04, 2016 20:24
[2016-07-04] MEDS: hydrALAZINE HCL 25 MG TAB PO SCH ×4 (10:27→21:00)
[2016-07-04] MEDS: FUROSEMIDE 20 MG TAB PO SCH ×2 (10:27→16:28)
[2016-07-04] MEDS: CALCIUM GLUCONATE 500 MG TAB PO SCH (10:27)
[2016-07-04] MEDS: ASPIRIN EC 81 MG TABEC PO SCH (10:27)
[2016-07-04] MEDS: POTASSIUM CHLORIDE 20 MEQ CONTROLLED RELEASE TAB PO SCH ×2 (10:28→21:00)
[2016-07-04] MEDS: MAGNESIUM OXIDE 400 MG TAB PO SCH (10:28)
[2016-07-04] MEDS: SODIUM CHLORIDE 0.9% FLUSH 5 ML FLUSH FLUSH SCH ×2 (10:30→21:00)
[2016-07-04 10:56] LABS: AUTOMATED NEUTROPHIL # 6.7 TH/MM3 (1.8-7.7); BASOPHIL % 0.2 % (0.0-2.0); EOSINOPHIL # 1.1 TH/MM3 (0-0.4); EOSINOPHIL % 10.9 % (0.0-4.0); HEMATOCRIT 27.9 % (39.0-51.0); HEMO FLAGS DIFF FINAL; LYMPH % 9.8 % (9.0-44.0); MEAN CELL VOLUME 88.5 FL (80.0-100.0); MEAN CORPUSCULAR HEMOGLOBIN 28.2 PG (27.0-34.0); MEAN CORPUSCULAR HGB CONC 31.9 % (32.0-36.0); MONO % 11.4 % (0.0-8.0); NEUT % 67.7 % (16.0-70.0); PLATELET COUNT 324 TH/MM3 (150-450); RED BLOOD COUNT 3.15 MIL/MM3 (4.50-5.90); RED CELL DISTRIBUTION WIDTH 16.1 % (11.6-17.2); WHITE BLOOD COUNT 9.8 TH/MM3 (4.0-11.0)
--- NOTE | 2016-07-04 11:16 | PD.CONS ---
HPI History of Present Illness This is a 80 year old male with past medical history of CKD, hyperkalemia, anemia, HTN, DM, who is here for evaluation of weakness, and syncopal episode. On admission, he was found to have electrolyte abnormalities. Patient has potassium of 3.0, calcium of 6.8, protein corrected calcium is 6.6, magnesium of 1.4 which have been corrected since. GI consulted for elevated LFTs. Of note, he normal liver enzymes on 06/28/16, on 07/01/16, labs revealed AST 136, ALT 88, ALP 176. US revealed Echogenic liver with intrahepatic ductal dilatation. Markedly thickened gallbladder wall with gallstone evident. Hepatitis panel came back (+) for hep-C. He denies previous history of this, denies alcohol intake. He denies nausea, vomiting, hematemesis , abdomen pain, diarrhea, melena or hematochezia. (Eyad Dominguez) PFSH Past Medical History - HTN - well controlled - T2DM - well controlled - idiopathic CKD - Anemia Past Surgical History None (Eyad Dominguez) Coded Allergies: Lisinopril (Verified Allergy, Severe, 06/27/16) Metformin (Verified Allergy, Severe, 06/27/16) Medications Current Medications Medications (Trade) Dose Ordered Sig/Carol Route Start Time Stop Time Status Last Admin (NS Flush) 2 ml UNSCH PRN FLUSH 06/27/16 16:45 (NS Flush) 2 ml BID FLUSH 06/27/16 21:00 07/04/16 10:30 (Tylenol) 650 mg Q4H PRN PO 06/27/16 16:45 07/01/16 05:57 (Zofran Inj) 4 mg Q6H PRN IVP 06/27/16 16:45 (Milk Of Magnesia Liq) 30 ml Q12H PRN PO 06/27/16 16:45 (Heparin Inj) 5,000 units Q12H SQ 06/27/16 17:00 06/27/16 18:44 (Narcan Inj) 0.4 mg UNSCH PRN IV 06/27/16 16:45 (Ecotrin Ec) 81 mg DAILY PO 06/28/16 09:00 07/04/16 10:27 (Catapres) 0.1 mg Q6H PRN PO 06/27/16 17:00 (Calcium Gluconate) 500 mg DAILY PO 06/28/16 09:00 07/04/16 10:27 (Lasix) 20 mg BID@,18 PO 06/28/16 18:00 07/04/16 10:27 (KCl) 20 meq Q12HR PO 06/28/16 21:00 07/04/16 10:28 (Phoslo) 667 mg TID PO 06/28/16 18:00 07/03/16 17:30 (Eucerin Cream) 1 applic Q6H PRN TOPICAL 06/29/16 09:00 (Rocaltrol) 0.25 mcg DAILY PO 06/30/16 09:00 07/02/16 12:04 (Mag-Ox) 400 mg DAILY PO 06/30/16 09:00 07/04/16 10:28 (Xanax) 0.5 mg Q8H PRN PO 07/01/16 10:15 07/03/16 17:44 (Tums Chew) 500 mg Q12HR CHEW 07/01/16 13:45 07/03/16 20:03 (Apresoline) 25 mg QID PO 07/02/16 18:00 07/04/16 10:27 Family History No family history of colon cancer Social History Denies current tobacco use, alcohol, or illicit drug use (Eyad Dominguez) Review of Systems Constitutional: COMPLAINS OF: Fatigue, DENIES: Weight loss Endocrine: DENIES: Polyuria Eyes: DENIES: Double Vision Ears, nose, mouth, throat: DENIES: Hoarseness Respiratory: DENIES: Shortness of breath Cardiovascular: COMPLAINS OF: Lower Extremity Edema Gastrointestinal: DENIES: Abdominal pain, Black stools, Bloody stools, Constipation, Diarrhea, Nausea, Vomiting, Difficulty Swallowing, Anorexia, Odynophagia, Swelling of Abdomen, Heartburn, Hematemesis Genitourinary: DENIES: Hematuria Musculoskeletal: DENIES: Joint Swelling Integumentary: DENIES: Jaundice Hematologic/lymphatic: DENIES: Bruising Immunologic/allergic: DENIES: Eczema Neurologic: DENIES: Headache Psychiatric: DENIES: Anxiety (Eyad Dominguez) GI Exam Vitals I&O Vital Signs Date Time Temp Pulse Resp B/P Pulse Ox O2 Delivery O2 Flow Rate FiO2 07/04/16 08:00 96.5 108 16 141/54 98 07/04/16 04:00 97.8 60 16 138/58 98 07/04/16 00:00 96.2 58 16 133/73 99 07/03/16 20:00 95.1 60 18 137/49 99 07/03/16 16:00 97.0 61 18 123/60 97 07/03/16 12:00 97.6 61 18 136/61 97 I/O 07/03/16 07/03/16 07/03/16 07/04/16 07/04/16 07/04/16 07:00 15:00 23:00 07:00 15:00 23:00 Intake Total 200 ml 720 ml 350 ml 150 ml Output Total 650 ml 1000 ml 400 ml 100 ml Balance -450 ml -280 ml -50 ml 50 ml Intake Oral 200 ml 720 ml 350 ml 150 ml Output Urine Total 650 ml 1000 ml 400 ml 100 ml # Bowel Movements 0 1 Imaging Last Impressions Liver Ultrasound 07/02/16 0000 Signed Impressions: Service Date/Time: Saturday, July 02, 2016 08:02 - CONCLUSION: 1. Echogenic liver with intrahepatic ductal dilatation. 2. Pancreas is obscured. 3. Markedly thickened gallbladder wall with gallstone evident. Jovani Virgen MD FACR Renal Ultrasound 06/28/16 0000 Signed Impressions: Service Date/Time: June 10:08 - CONCLUSION: 1. Kidneys are slightly echogenic which can be seen with medical renal disease. 2. Simple right renal cyst. Gordon Kelly MD Head CT 06/27/16 1126 Signed Impressions: Service Date/Time: Monday, June 27, 2016 12:09 - CONCLUSION: Negative for an acute process Jovani Virgen MD FACR Chest X-Ray 06/27/16 1126 Signed Impressions: Service Date/Time: Monday, June 27, 2016 13:37 - CONCLUSION: No acute disease. 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 Mild spinal stenosis C3-4 and C5-6 from marginal spurring and mild disc protrusion. No acute abnormalities noted. Sam Leal MD Shoulder X-Ray 06/27/16 0000 Signed Impressions: Service Date/Time: Monday, June 27, 2016 13:40 - CONCLUSION: Degenerative changes. Fracture is not appreciated. Jovani Virgen MD FACR Laboratory Test 07/03/16 07/04/16 16:11 10:26 White Blood Count 9.6 TH/MM3 9.8 TH/MM3 Red Blood Count 2.96 MIL/MM3 3.15 MIL/MM3 Hemoglobin 8.4 GM/DL 8.9 GM/DL Hematocrit 26.1 % 27.9 % Mean Corpuscular Volume 88.1 FL 88.5 FL Mean Corpuscular Hemoglobin 28.3 PG 28.2 PG Mean Corpuscular Hemoglobin 32.1 % 31.9 % Concent Red Cell Distribution Width 15.8 % 16.1 % Platelet Count 282 TH/MM3 324 TH/MM3 Mean Platelet Volume 8.0 FL 7.9 FL Sodium Level 141 MEQ/L Potassium Level 4.6 MEQ/L Chloride Level 108 MEQ/L Carbon Dioxide Level 24.1 MEQ/L Anion Gap 9 MEQ/L Blood Urea Nitrogen 68 MG/DL Creatinine 3.65 MG/DL Estimat Glomerular Filtration 20 ML/MIN Rate Random Glucose 101 MG/DL Calcium Level 8.6 MG/DL Phosphorus Level 3.9 MG/DL Magnesium Level 2.3 MG/DL Total Bilirubin 0.5 MG/DL Aspartate Amino Transf 58 U/L (AST/SGOT) Alanine Aminotransferase 63 U/L (ALT/SGPT) Alkaline Phosphatase 259 U/L Total Protein 7.4 GM/DL Albumin 1.9 GM/DL Neutrophils (%) (Auto) 67.7 % Lymphocytes (%) (Auto) 9.8 % Monocytes (%) (Auto) 11.4 % Eosinophils (%) (Auto) 10.9 % Basophils (%) (Auto) 0.2 % Neutrophils # (Auto) 6.7 TH/MM3 Lymphocytes # (Auto) 1.0 TH/MM3 Monocytes # (Auto) 1.1 TH/MM3 Eosinophils # (Auto) 1.1 TH/MM3 Basophils # (Auto) 0.0 TH/MM3 CBC Comment DIFF FINAL Differential Comment Physical Examination HEENT: normocephalic; atraumatic; no jaundice. Throat is clear. NECK: Neck is supple, no JVD, no lymphadenopathy. CHEST: Chest is clear to auscultation and percussion. CARDIAC: Regular rate and rhythm with no murmur gallop or rubs. ABDOMEN: Soft, nondistended, nontender; no hepatosplenomegaly; bowel sounds are present in all four quadrants. EXTREMITIES: +1 edema to BLE SKIN: Normal; no rash; no jaundice. SERVICE DESK MANAGER: No focal deficits; alert and oriented times three. (Eyad Dominguez) Assessment and Plan Plan - Elevated LFTs/non obstructive pattern- normal liver enzymes on 06/28/16, on , labs revealed AST 136, ALT 88, ALP 176. US revealed Echogenic liver with intrahepatic ductal dilatation. Markedly thickened gallbladder wall with gallstone evident. Hepatitis panel came back (+) for hep-C. He denies previous history of this, denies alcohol intake. He denies nausea, vomiting, hematemesis , abdomen pain, diarrhea, melena or hematochezia. - cholelithiasis- US as above, will order HIDA - Hep-c (+)- tx naive, PCR Pending - Anemia- most likely chronic dz, no bleeding reported, hh stable, never had EGD /colonoscopy - Electrolyte abnormalities- Improving per attending - HTN, per attending Plan: - NAIMA - HIDA scan - Monitor labs - Await Hep-c PCR - Further recommendations to follow based on results above - Supportive care - Patient seen and examined by dr Posadas and myself and this note is written on his behalf. (Eyad Dominguez) Physician Comments Seen and examined with SIMON, new diagnosis of HEP C, Gall stones on U/S. HIDA scan ordered. Outpt. fu for Hep C. Discussed with pt. Thank you (Gloria Posadas MD) Eyad Dominguez Jul 04, 2016 11:16 Gloria Posadas MD Jul 04, 2016 13:04
[2016-07-04 12:00] VITALS: BP 140/56; PULSE 74; RESP 18; TEMP 96.8; O2SAT 96
[2016-07-04 13:35] LABS: ALKALINE PHOSPHATASE 262 U/L (45-117); ALT (GPT) 53 U/L (12-78); ANION GAP 9 MEQ/L (5-15); AST (GOT) 39 U/L (15-37); BICARBONATE 24.8 MEQ/L (21.0-32.0); BLOOD UREA NITROGEN 73 MG/DL (7-18); CALCIUM-PROTEIN CORRECTED 8.3 MG/DL (8.5-10.1); CHLORIDE 105 MEQ/L (98-107); GLOMERULAR FILTRATION RATE 18 ML/MIN (>89); MAGNESIUM 2.4 MG/DL (1.5-2.5); POTASSIUM 4.4 MEQ/L (3.5-5.1); SODIUM (NA) 139 MEQ/L (136-145); TOTAL BILIRUBIN ADULT 0.5 MG/DL (0.2-1.0)
--- NOTE | 2016-07-04 15:31 | RADRPT ---
EXAM DATE/TIME: 07/04/2016 13:45 [facility] COMPARISON: No previous studies available for comparison. INDICATIONS : Cholecystitis with elevated LFT's. DOSE: 4.2 mCi Tc99m Mebrofenin IV MEDICAL HISTORY : Diabetes mellitus type 2. Hypertension. Renal insufficiency, chronic. SURGICAL HISTORY : None. ENCOUNTER: Initial ACUITY: 2 days PAIN SCALE: 0/10 LOCATION: Abdomen. TECHNIQUE: Following the intravenous administration of radiotracer, dynamic sequential images wer e performed with continuous acquisition. FINDINGS: There is non-visualization of the gallbladder after one hour and 20 minutes. There is prompt extract ion of radiotracer in common duct and small bowel in 15 minutes. CONCLUSION: Nonvisualization of the gallbladder at one hour and 20 minutes. Considerations would include both acute and chronic cholecystitis. Jovani Virgen MD FACR on July 04, 2016 at 15:28 Board Certified Radiologist. This report was verified electronically.
--- NOTE | 2016-07-04 16:26 | HHI.NPPN ---
Subjective History of Present Illness 80 year old male with DM,HTN,CKD Edema Additional Remarks Patient is alert, no SOB, no abd. pain. Review of Systems General Constitutional: Fatigue Cardiovascular Cardiac: Edema Objective Data Data 07/03/16 07/04/16 19:00 07:00 Intake Total 720 ml 500 ml Output Total 1000 ml 500 ml Balance -280 ml 0 ml Intake Oral 720 ml 500 ml Output Urine Total 1000 ml 500 ml # Bowel Movements 1 Vital Signs Date Time Temp Pulse Resp B/P Pulse Ox O2 Delivery O2 Flow Rate FiO2 07/04/16 12:00 96.8 74 18 140/56 96 07/04/16 08:00 96.5 108 16 141/54 98 07/04/16 04:00 97.8 60 16 138/58 98 07/04/16 00:00 96.2 58 16 133/73 99 07/03/16 20:00 95.1 60 18 137/49 99 -: 07/04/16 1026 07/04/16 1026 Physical Exam General Appearance: No Acute Distress, Comfortable Neck Neck Exam: Neck Supple Pulmonary Resp Exam: Clear Bilaterally, Breath Sounds Equal Cardiology CV Exam: Regular, Normal Sinus Rhythm Gastrointestinal/Abdomen GI Exam: Soft, Non-Tender, Positive Bowel Movement Extremeties Extremities Exam: Moderate Edema, Pitting Edema, Dependent Edema Neurologic Neuro Exam: Alert, Awake Psychiatric Psych Exam: Appropriate Responses Assessment/Plan Problem List: (1) Chronic Renal Failure / insufficiency, unspec Plan: Patient has advance stage 4 chronic kidney disease. Encourage oral intake. Continue Lasix and Kcl supplement. Creatinine is almost same with GFR oif 128 ml/min. He has advance stage 4 chronic kidney disease. (2) Diabetes mellitus type 2 in nonobese Plan: follow BG (3) Essential hypertension Plan: monitor BP, Hydralazine increased Ranjeet Tran MD Jul 04, 2016 16:25
[2016-07-04] MEDS: ALPRAZolam 0.5 MG TAB PO PRN (16:36)
[2016-07-04 20:00] VITALS: BP 149/57; PULSE 65; RESP 16; TEMP 98.5; O2SAT 94
[2016-07-05] VITALS: BP 126/61; PULSE 62; RESP 18; TEMP 96; O2SAT 99
[2016-07-05] MEDS: HEPARIN SODIUM - SQ 10,000 UNITS/ML VIAL SQ SCH ×2 (04:29→17:00)
[2016-07-05 05:29] VITALS: BP 138/64; PULSE 72; RESP 18; TEMP 97.5; O2SAT 96
--- NOTE | 2016-07-05 08:07 | HHI.FPPN ---
Subjective Remarks Pt seen and examined this morning. No acute events overnight. Pt reports that he is doing well. He is interested in working with PT. Lower extremity edema is stable. He denies chest pain, sob, abdominal pain, n/v. He has been tolerating his diet. He has reviewed list of SNFs and is interested in going to [facility], but would consider going to any of the facilities that would be covered by his insurance. (Lauro Alejandro MD R2) Objective Vitals Vital Signs Date Time Temp Pulse Resp B/P Pulse Ox O2 Delivery O2 Flow Rate FiO2 07/05/16 05:29 97.5 72 18 138/64 96 07/05/16 00:00 96.0 62 18 126/61 99 07/04/16 20:00 98.5 65 16 149/57 94 07/04/16 12:00 96.8 74 18 140/56 96 I/O 07/04/16 07/04/16 07/04/16 07/05/16 07/05/16 07/05/16 06:59 14:59 22:59 06:59 14:59 22:59 Intake Total 150 ml 960 ml 0 ml Output Total 100 ml 550 ml 300 ml 500 ml Balance 50 ml 410 ml -300 ml -500 ml Intake Oral 150 ml 960 ml 0 ml Output Urine Total 100 ml 550 ml 300 ml 500 ml # Bowel Movements 1 0 0 (Lauro Alejandro MD R2) Result Diagram: 07/04/16 1026 07/04/16 1026 Objective Remarks GENERAL: Elderly, overweight Sara male lying in bed, in no acute distress SKIN: Hyperkeratotic hyperpigmented lesions present on lateral aspect of bilateral lower extremities, improved. Patient also has these lesions on his elbows and hands bilaterally. HEENT: Atraumatic. Normocephalic. Pupils equal round and reactive. Poor dentition. No oropharyngeal erythema noted. Airway patent. NECK: Trachea midline. Supple, nontender, no meningeal signs. CARDIOVASCULAR: Regular rate and rhythm with grade II/ systolic murmur RESPIRATORY: Anterior lung jean auscultated, symmetric, unlabored respirations.Breath sounds equal bilaterally. No wheezes, rales, or rhonchi. GASTROINTESTINAL: Abdomen soft, non-tender, nondistended. MUSCULOSKELETAL: Pitting edema of lower extremities improving. Skin findings as above. NEUROLOGICAL: Awake and alert. Cranial nerves grossly intact. Motor and sensory function grossly intact. Speech at baseline. (Lauro Alejandro MD R2) A/P Assessment and Plan 80-year-old man with a history of stage IV chronic kidney disease presents with generalized weakness and electrolyte abnormalities. joaquin Mcgill Discharge Planning Anticipate discharge to rehabilitation unit pending placement (Lauro Alejandro MD R2) Attending Attestation Patient examined and case discussed with resident physicians I have read the above note and agree with the assessment/plan is discussed with me I was involved in all medical decision making for this patient Thomas Mcgill M.D. (Thomas Mcgill MD) Problem List: (1) Cholelithiasis Status: Acute Plan: Patient found to have a thickened gallbladder and gallstone on liver ultrasound. -GI consulted, appreciate recommendations -Patient denies ever being previously diagnosed with gallbladder dysfunction or cholelithiasis Imaging: HIDA 07/04: Nonvisualization of the gallbladder at 1 hour and 20 minutes, considerations would include both acute and chronic cholecystitis. Liver US 07/02: Echogenic liver with intrahepatic ductal dilatation. Markedly thickened gallbladder wall with gallstone evident. (2) Hepatitis C Status: Acute Plan: Hepatitis profile results significant for positive hepatitis C. Per EMR review there is no prior history of Hepatitis C. Pt is treatment emili. -This was discussed with patient, who denies history of hepatitis C -GI has also been consulted, appreciate recommendations -Ordered confirmatory testing with hepatitis C RNA genotype and quantitative. PCR Pending (3) Chronic Renal Failure / insufficiency, unspec Status: Chronic Plan: Patient CKD currently presenting with electrolyte abnormalities likely contributing to his generalized weakness. Nephrology following, appreciate recommendations. Encourage by mouth intake Continue Lasix 20 mg by mouth twice a day with potassium supplement Monitor and replete electrolytes, see below May need to consider dialysis in the future We'll hold home gabapentin 300 mg TID as this also could be contributing to his weakness. Consider restarting at renally dosed amount if pt has neuropathic pain. (4) Hypocalcemia Status: Acute Plan: Improving. Patient presented with hypocalcemia with a calcium of 6.8 and a protein corrected calcium of 6.6. Pt has been refusing oral calcium and calcitriol. Protein corrected calcium 8.3 on 07/04. Labs for this morning pending. vitamin D level of 23, which is within normal limits Calcitriol 0.25 g by mouth daily Calcium gluconate 500 mg by mouth daily Calcium acetate (PhosLo) 667 mg by mouth 3 times a day (5) Generalized weakness Status: Acute Plan: Likely multifactorial with chronic kidney disease, electrolyte abnormalities and less likely cardiac etiology given Echocardiogram showing EF of 55-60%. Physical therapy consulted and recommended PT at rehab-- case management consulted to assist with placement See electrolyte problems for electrolyte repletion. (6) Hypokalemia Status: Acute Plan: Improving, Patient presented with hypokalemia with potassium of 3.0 on admission. Potassium today 4.4. Magnesium today 2.4. Patient labs this morning pending, agreeable to lab draws KCl 20 mEq by mouth every 12 hours scheduled Magnesium oxide 400 mg by mouth daily Continue to monitor (7) Right shoulder pain Status: Acute Plan: X-ray of the right shoulder with no evidence of fracture, suspect cuff tear. - Sling for comfort - Continue physical therapy - Physical therapy recommended PT at rehab. (8) Leg edema Status: Resolved Plan: Improving. Patient presents with a h/o 6 months of lower extremity edema , likely due to chronic kidney disease and fluid overload. Echocardiogram showed ejection fraction 55-60% Holding home amlodipine Diurese with Lasix Fluid restriction less than 1.5 L per day (9) Essential hypertension Status: Chronic Plan: Pt on Amlodipine 10mg which has been held d/t LE edema. BP's currently labile. Hydralazine 25mg by mouth QID Continue Lasix Clonidine 0.1 mg po Q6hrs prn for blood pressure over 160/90 (10) Diabetes mellitus type 2 in nonobese Status: Chronic Plan: Patient reports a history of diabetes but is not on any home medications to control his blood sugar. - Hemoglobin A1c 5.2, on 06/27. -Sliding scale discontinued as patient's blood sugars have been normal (11) Nutrition, metabolism, and development symptoms Status: Acute Plan: Fluids: Fluid restrict to less than 1.5 L per day. Electrolytes: Monitor and replete, see above Nutrition: Renal diet. (12) No contraindication to deep vein thrombosis (DVT) prophylaxis Status: Acute Plan: Heparin 5000 units subcutaneous every 12 hours (Lauro Alejandro MD R2) Problem Qualifiers (1) Right shoulder pain: Qualified Code: M25.511 - Acute pain of right shoulder Lauro Alejandro MD R2 Jul 05, 2016 08:07 Thomas Mcgill MD Jul 05, 2016 11:30
[2016-07-05] MEDS ORDERED: CALCIUM CARBONATE 1.25 GM (CA 500 MG) TAB PO ONE (09:45)
[2016-07-05] MEDS: CALCIUM ACETATE 667 MG CAP PO SCH ×3 (10:22→18:12)
[2016-07-05] MEDS: hydrALAZINE HCL 25 MG TAB PO SCH ×4 (10:22→22:04)
[2016-07-05] MEDS: POTASSIUM CHLORIDE 20 MEQ CONTROLLED RELEASE TAB PO SCH ×2 (10:23→22:04)
[2016-07-05] MEDS: MAGNESIUM OXIDE 400 MG TAB PO SCH (10:23)
[2016-07-05] MEDS: FUROSEMIDE 20 MG TAB PO SCH ×2 (10:23→18:10)
[2016-07-05] MEDS: CALCIUM GLUCONATE 500 MG TAB PO SCH (10:23)
[2016-07-05] MEDS: ASPIRIN EC 81 MG TABEC PO SCH (10:23)
[2016-07-05] MEDS: CALCIUM CARBONATE 500 MG CHEWABLE TAB CHEW SCH ×2 (10:24→21:00)
[2016-07-05] MEDS: SODIUM CHLORIDE 0.9% FLUSH 5 ML FLUSH FLUSH SCH ×2 (10:25→22:04)
[2016-07-05] MEDS: CALCITRIOL 0.25 MCG CAP PO SCH (10:30)
--- NOTE | 2016-07-05 12:40 | HHI.NPPN ---
Subjective History of Present Illness 80 year old male with DM,HTN,CKD Edema Additional Remarks Patient is alert, eating better, no complain. Review of Systems General Constitutional: Fatigue Cardiovascular Cardiac: Edema Objective Data Data 07/04/16 07/05/16 19:00 07:00 Intake Total 960 ml 0 ml Output Total 550 ml 800 ml Balance 410 ml -800 ml Intake Oral 960 ml 0 ml Output Urine Total 550 ml 800 ml # Bowel Movements 0 Vital Signs Date Time Temp Pulse Resp B/P Pulse Ox O2 Delivery O2 Flow Rate FiO2 07/05/16 05:29 97.5 72 18 138/64 96 07/05/16 00:00 96.0 62 18 126/61 99 07/04/16 20:00 98.5 65 16 149/57 94 -: 07/04/16 1026 07/04/16 1026 Physical Exam General Appearance: No Acute Distress, Comfortable Neck Neck Exam: Neck Supple Pulmonary Resp Exam: Clear Bilaterally, Breath Sounds Equal Cardiology CV Exam: Regular, Normal Sinus Rhythm Gastrointestinal/Abdomen GI Exam: Soft, Non-Tender, Positive Bowel Movement Extremeties Extremities Exam: Moderate Edema, Pitting Edema, Dependent Edema Neurologic Neuro Exam: Alert, Awake Psychiatric Psych Exam: Appropriate Responses Assessment/Plan Problem List: (1) Chronic Renal Failure / insufficiency, unspec Plan: Patient has advance stage 4 chronic kidney disease. Encourage oral intake. Continue Lasix and Kcl supplement. He has advance stage 4 chronic kidney disease. No new BMP. (2) Diabetes mellitus type 2 in nonobese Plan: follow BG (3) Essential hypertension Plan: monitor BP, Hydralazine increased Ranjeet Tran MD Jul 05, 2016 12:40
[2016-07-05 13:15] VITALS: BP 142/55; PULSE 62; RESP 20; TEMP 97.3; O2SAT 100
--- NOTE | 2016-07-05 15:05 | HHI.GIFU ---
Subjective Remarks Patient is resting in bed denies nausea, vomiting or abdomen pain. (Eyad Dominguez) Objective Vitals I&O Vital Signs Date Time Temp Pulse Resp B/P Pulse Ox O2 Delivery O2 Flow Rate FiO2 07/05/16 13:15 97.3 62 20 142/55 100 07/05/16 05:29 97.5 72 18 138/64 96 07/05/16 00:00 96.0 62 18 126/61 99 07/04/16 20:00 98.5 65 16 149/57 94 I/O 07/04/16 07/04/16 07/04/16 07/05/16 07/05/16 07/05/16 07:00 15:00 23:00 07:00 15:00 23:00 Intake Total 150 ml 960 ml 0 ml 180 ml Output Total 100 ml 550 ml 300 ml 500 ml 1750 ml Balance 50 ml 410 ml -300 ml -500 ml -1570 ml Intake Oral 150 ml 960 ml 0 ml 180 ml Output Urine Total 100 ml 550 ml 300 ml 500 ml 1750 ml # Bowel Movements 1 0 0 Imaging Last Impressions Hepatobiliary Scan Nuclear Medicine 07/04/16 0000 Signed Impressions: Service Date/Time: Monday, July 04, 2016 13:45 - CONCLUSION: Nonvisualization of the gallbladder at one hour and 20 minutes. Considerations would include both acute and chronic cholecystitis. Jovani Virgen MD FACR Liver Ultrasound 07/02/16 0000 Signed Impressions: Service Date/Time: Saturday, July 02, 2016 08:02 - CONCLUSION: 1. Echogenic liver with intrahepatic ductal dilatation. 2. Pancreas is obscured. 3. Markedly thickened gallbladder wall with gallstone evident. Jovani Virgen MD FACR Renal Ultrasound 06/28/16 0000 Signed Impressions: Service Date/Time: June 10:08 - CONCLUSION: 1. Kidneys are slightly echogenic which can be seen with medical renal disease. 2. Simple right renal cyst. Gordon Kelly MD Head CT 06/27/16 1126 Signed Impressions: Service Date/Time: Monday, June 27, 2016 12:09 - CONCLUSION: Negative for an acute process Jovani Virgen MD FACR Chest X-Ray 06/27/16 1126 Signed Impressions: Service Date/Time: Monday, June 27, 2016 13:37 - CONCLUSION: No acute disease. 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 Mild spinal stenosis C3-4 and C5-6 from marginal spurring and mild disc protrusion. No acute abnormalities noted. Sam Leal MD Shoulder X-Ray 06/27/16 0000 Signed Impressions: Service Date/Time: Monday, June 27, 2016 13:40 - CONCLUSION: Degenerative changes. Fracture is not appreciated. Jovani Virgen MD FACR Physical Exam HEENT: Pupils round and reactive to light; normocephalic; atraumatic; no jaundice. Throat is clear. NECK: Neck is supple, no JVD, no lymphadenopathy. CHEST: Chest is clear to auscultation and percussion. CARDIAC: Regular rate and rhythm with no murmur gallop or rubs. ABDOMEN: Soft, nondistended, nontender; no hepatosplenomegaly; bowel sounds are present in all four quadrants. EXTREMITIES: No clubbing, cyanosis, or edema. SKIN: Normal; no rash; no jaundice. IMPLEMENTATION TECHNICIAN: No focal deficits; alert and oriented times three. (Eyad Dominguez COUNSELING PSYCHOLOGIST) Assessment and Plan Plan - Elevated LFTs/non obstructive pattern- Improving, normal liver enzymes on , on 07/01/16, labs revealed AST 136, ALT 88, ALP 176. HIDA suggested possible acute on chronic cholecystitis US revealed Echogenic liver with intrahepatic ductal dilatation. Markedly thickened gallbladder wall with gallstone evident. Hepatitis panel came back (+) for hep-C. He denies previous history of this, denies alcohol intake. He denies nausea, vomiting, hematemesis, abdomen pain, diarrhea, melena or hematochezia. - cholelithiasis- US, HIDA as above, - Hep-c (+)- tx naive, PCR Pending - Anemia- most likely chronic dz, no bleeding reported, hh stable, never had EGD /colonoscopy - Electrolyte abnormalities- Improving per attending - HTN, per attending Plan: - NAIMA - GS consult - Await Hep-c PCR - F/u with GI in 2 weeks after discharge - Gi will sign off - Patient seen and examined by dr Posadas and myself and this note is written on his behalf. (Eyad Dominguez) Physician Comments Doing well, HIDA scan consistent with cholecystitis. GS consulted. Will sign off , reconsult as needed. Thank you (Gloria Posadas MD) Eyad Dominguez Jul 05, 2016 15:05 Gloria Posadas MD Jul 05, 2016 17:01
[2016-07-05 18:13] VITALS: BP 118/61; PULSE 68
[2016-07-05] MEDS ORDERED: MORPHINE SULFATE 15 MG TAB PO PRN (19:00)
[2016-07-05 22:00] VITALS: BP 147/60; PULSE 82; RESP 18; O2SAT 98
[2016-07-06] VITALS: BP 139/59; PULSE 130; RESP 22; TEMP 95.9; O2SAT 94
[2016-07-06] MEDS: HEPARIN SODIUM - SQ 10,000 UNITS/ML VIAL SQ SCH ×3 (05:00→18:07)
[2016-07-06 07:53] LABS: HCV RNA PCR IU/ML LESS THAN 15 IU/mL (()); HCV RNA PCR LOGIU/ML LESS THAN 1.18 (())
[2016-07-06] MEDS: hydrALAZINE HCL 25 MG TAB PO SCH ×4 (09:00→21:00)
[2016-07-06 09:19] VITALS: BP 121/39; PULSE 62; RESP 20; TEMP 98.1; O2SAT 100
[2016-07-06] MEDS: CALCIUM ACETATE 667 MG CAP PO SCH ×3 (10:28→18:07)
[2016-07-06] MEDS: POTASSIUM CHLORIDE 20 MEQ CONTROLLED RELEASE TAB PO SCH ×2 (10:28→22:02)
[2016-07-06] MEDS: CALCIUM GLUCONATE 500 MG TAB PO SCH (10:28)
[2016-07-06] MEDS: FUROSEMIDE 20 MG TAB PO SCH ×2 (10:29→18:07)
[2016-07-06] MEDS: CALCIUM CARBONATE 500 MG CHEWABLE TAB CHEW SCH ×2 (10:29→22:02)
[2016-07-06] MEDS: MAGNESIUM OXIDE 400 MG TAB PO SCH (10:29)
[2016-07-06] MEDS: CALCITRIOL 0.25 MCG CAP PO SCH (10:29)
[2016-07-06] MEDS: ASPIRIN EC 81 MG TABEC PO SCH (10:29)
[2016-07-06] MEDS: SODIUM CHLORIDE 0.9% FLUSH 5 ML FLUSH FLUSH SCH ×2 (10:33→22:07)
--- NOTE | 2016-07-06 10:35 | HHI.NPPN ---
Subjective History of Present Illness 80 year old male with DM,HTN,CKD Edema Additional Remarks Patient is alert, no SOB, no new complain. Review of Systems General Constitutional: Fatigue Cardiovascular Cardiac: Edema Objective Data Data 07/05/16 07/06/16 19:00 07:00 Intake Total 300 ml 100 ml Output Total 2500 ml 750 ml Balance -2200 ml -650 ml Intake Oral 300 ml 100 ml Output Urine Total 2500 ml 750 ml # Bowel Movements 1 Vital Signs Date Time Temp Pulse Resp B/P Pulse Ox O2 Delivery O2 Flow Rate FiO2 07/06/16 09:19 98.1 62 20 121/39 100 07/06/16 00:00 95.9 130 22 139/59 94 07/05/16 22:00 82 18 147/60 98 07/05/16 18:13 68 118/61 07/05/16 13:15 97.3 62 20 142/55 100 -: 07/04/16 1026 07/04/16 1026 Physical Exam General Appearance: No Acute Distress, Comfortable Neck Neck Exam: Neck Supple Pulmonary Resp Exam: Clear Bilaterally, Breath Sounds Equal Cardiology CV Exam: Regular, Normal Sinus Rhythm Gastrointestinal/Abdomen GI Exam: Soft, Non-Tender, Positive Bowel Movement Extremeties Extremities Exam: Moderate Edema, Pitting Edema, Dependent Edema Neurologic Neuro Exam: Alert, Awake Psychiatric Psych Exam: Appropriate Responses Assessment/Plan Problem List: (1) Chronic Renal Failure / insufficiency, unspec Plan: Patient has advance stage 4 chronic kidney disease. Encourage oral intake. Continue Lasix and Kcl supplement. He has advance stage 4 chronic kidney disease. Last Creatinine was stable and GFR was 18 ml/min. (2) Diabetes mellitus type 2 in nonobese Plan: follow BG (3) Essential hypertension Plan: monitor BP, Hydralazine increased Ranjeet Tran MD Jul 06, 2016 10:35
[2016-07-06 12:00] VITALS: BP 121/47; PULSE 120; RESP 22; TEMP 97.2; O2SAT 80
--- NOTE | 2016-07-06 15:00 | HHI.FPPN ---
Subjective Remarks Patient complaining of leg and back pain overnight. Overnight, patient had 2 isolated episodes of tachycardia 130 and 120 respectively, blood pressure ranged from 120s to 140s over 39-60. Patient had one low pulse ox to 80% at noon. Patient complaining of lack of appetite, leg weakness. Patient denies any chest pain, shortness of breath, dizziness, lightheadedness, lower external swelling, fever, chills, nausea, vomiting. (Pk Gallagher MD R1) Objective Vitals Vital Signs Date Time Temp Pulse Resp B/P Pulse Ox O2 Delivery O2 Flow Rate FiO2 07/06/16 12:00 97.2 120 22 121/47 80 07/06/16 09:19 98.1 62 20 121/39 100 07/06/16 00:00 95.9 130 22 139/59 94 07/05/16 22:00 82 18 147/60 98 07/05/16 18:13 68 118/61 I/O 07/05/16 07/05/16 07/05/16 07/06/16 07/06/16 07/06/16 07:00 15:00 23:00 07:00 15:00 23:00 Intake Total 0 ml 180 ml 120 ml 100 ml Output Total 500 ml 1750 ml 1175 ml 325 ml 300 ml Balance -500 ml -1570 ml -1055 ml -225 ml -300 ml Intake Oral 0 ml 180 ml 120 ml 100 ml Output Urine Total 500 ml 1750 ml 1175 ml 325 ml 300 ml # Bowel Movements 0 1 (Pk Gallagher MD R1) Result Diagram: 07/04/16 1026 07/04/16 1026 Imaging Last Impressions Hepatobiliary Scan Nuclear Medicine 07/04/16 0000 Signed Impressions: Service Date/Time: Monday, July 04, 2016 13:45 - CONCLUSION: Nonvisualization of the gallbladder at one hour and 20 minutes. Considerations would include both acute and chronic cholecystitis. Jovani Virgen MD FACR Liver Ultrasound 07/02/16 0000 Signed Impressions: Service Date/Time: Saturday, July 02, 2016 08:02 - CONCLUSION: 1. Echogenic liver with intrahepatic ductal dilatation. 2. Pancreas is obscured. 3. Markedly thickened gallbladder wall with gallstone evident. Jovani Virgen MD FACR Renal Ultrasound 06/28/16 0000 Signed Impressions: Service Date/Time: June 10:08 - CONCLUSION: 1. Kidneys are slightly echogenic which can be seen with medical renal disease. 2. Simple right renal cyst. Gordon Kelly MD Head CT 06/27/16 1126 Signed Impressions: Service Date/Time: Monday, June 27, 2016 12:09 - CONCLUSION: Negative for an acute process Jovani Virgen MD FACR Chest X-Ray 06/27/166 Signed Impressions: Service Date/Time: Monday, June 27, 2016 13:37 - CONCLUSION: No acute disease. 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 Mild spinal stenosis C3-4 and C5-6 from marginal spurring and mild disc protrusion. No acute abnormalities noted. Sam Leal MD Shoulder X-Ray 06/27/16 0000 Signed Impressions: Service Date/Time: Monday, June 27, 2016 13:40 - CONCLUSION: Degenerative changes. Fracture is not appreciated. Jovani Virgen MD FACR Objective Remarks GENERAL: Elderly, overweight Sara male lying in bed, in no acute distress SKIN: Hyperkeratotic hyperpigmented lesions present on lateral aspect of bilateral lower extremities, improved. Patient also has these lesions on his elbows and hands bilaterally. HEENT: Atraumatic. Normocephalic. Pupils equal round and reactive. Moist mucous memories. Poor dentition. No oropharyngeal erythema noted. Airway patent. NECK: Trachea midline. Supple, nontender, no meningeal signs. CARDIOVASCULAR: Regular rate and rhythm with grade II/ systolic murmur RESPIRATORY: Anterior lung jean auscultated, symmetric, unlabored respirations. Breath sounds equal bilaterally. No wheezes, rales, or rhonchi. GASTROINTESTINAL: Abdomen soft, non-tender, nondistended. MUSCULOSKELETAL: Trace Pitting edema of lower extremities improving. Skin findings as above. 5 out of 5 strength of upper extremities. 3 out of 5 strength of hip flexors bilaterally. NEUROLOGICAL: Awake and alert. Cranial nerves grossly intact. Motor and sensory function grossly intact. Speech at baseline. (Pk Gallagher MD R1) A/P Assessment and Plan 80-year-old man with a history of stage IV chronic kidney disease presents with generalized weakness and electrolyte abnormalities. joaquin Mcgill Discharge Planning Anticipate discharge to rehabilitation unit pending general surgery consult ( Pk Gallagher MD R1) Attending Attestation Pt. examined and case discussed with resident physicians I have read the above note and agree with the assessment/plan as discussed with me I was involved in all medical decision making for this patient Thomas Mcgill MD (Thomas Mcgill MD) Problem List: (1) Cholelithiasis Status: Acute Plan: Patient found to have a thickened gallbladder and gallstone on liver ultrasound. HIDA scan did not visualize gallbladder. -GI consulted general surgery, will appreciate recommendations -Patient denies ever being previously diagnosed with gallbladder dysfunction or cholelithiasis Imaging: HIDA 07/04: Nonvisualization of the gallbladder at 1 hour and 20 minutes, considerations would include both acute and chronic cholecystitis. Liver US 07/02: Echogenic liver with intrahepatic ductal dilatation. Markedly thickened gallbladder wall with gallstone evident. (2) Hepatitis C Status: Acute Plan: Hepatitis profile results significant for positive hepatitis C. Per EMR review there is no prior history of Hepatitis C. Pt is treatment emili. -This was discussed with patient, who denies history of hepatitis C -GI has also been consulted, appreciate recommendations -Ordered confirmatory testing with hepatitis C RNA genotype and quantitative. PCR showed less than 15 IUs per mL. PCR log showed less than 1.18 IUs per mL (3) Chronic Renal Failure / insufficiency, unspec Status: Chronic Plan: Patient CKD currently presenting with electrolyte abnormalities likely contributing to his generalized weakness. Nephrology following, appreciate recommendations. Encourage by mouth intake Continue Lasix 20 mg by mouth twice a day with potassium supplement Monitor and replete electrolytes, see below May need to consider dialysis in the future We'll hold home gabapentin 300 mg TID as this also could be contributing to his weakness. Consider restarting at renally dosed amount if pt has neuropathic pain. (4) Hypocalcemia Status: Acute Plan: Improving. Patient presented with hypocalcemia with a calcium of 6.8 and a protein corrected calcium of 6.6. Pt has been refusing oral calcium and calcitriol. Protein corrected calcium 8.3 on 07/04. Labs for this morning pending. vitamin D level of 23, which is within normal limits Calcitriol 0.25 g by mouth daily Calcium gluconate 500 mg by mouth daily Calcium acetate (PhosLo) 667 mg by mouth 3 times a day (5) Generalized weakness Status: Acute Plan: Likely multifactorial with chronic kidney disease, electrolyte abnormalities and less likely cardiac etiology given Echocardiogram showing EF of 55-60%. Physical therapy consulted and recommended PT at rehab-- case management consulted to assist with placement See electrolyte problems for electrolyte repletion. (6) Hypokalemia Status: Acute Plan: Improving, Patient presented with hypokalemia with potassium of 3.0 on admission. Labs from 07/04/16: Potassium of 4.4. Magnesium of 2.4. Patient labs this morning pending, agreeable to lab draws KCl 20 mEq by mouth every 12 hours scheduled Magnesium oxide 400 mg by mouth daily Continue to monitor (7) Right shoulder pain Status: Acute Plan: X-ray of the right shoulder with no evidence of fracture, suspect cuff tear. - Sling for comfort - Continue physical therapy - Physical therapy recommended PT at rehab. (8) Leg edema Status: Resolved Plan: Improving. Patient presents with a h/o 6 months of lower extremity edema , likely due to chronic kidney disease and fluid overload. Echocardiogram showed ejection fraction 55-60% Holding home amlodipine Diurese with Lasix Fluid restriction less than 1.5 L per day (9) Essential hypertension Status: Chronic Plan: Pt on Amlodipine 10mg which has been held d/t LE edema. BP's currently less labile. Hydralazine 25mg by mouth QID Continue Lasix Clonidine 0.1 mg po Q6hrs prn for blood pressure over 160/90 (10) Diabetes mellitus type 2 in nonobese Status: Chronic Plan: Patient reports a history of diabetes but is not on any home medications to control his blood sugar. - Hemoglobin A1c 5.2, on 06/27. -Sliding scale discontinued as patient's blood sugars have been normal (11) Nutrition, metabolism, and development symptoms Status: Acute Plan: Fluids: Fluid restrict to less than 1.5 L per day. Electrolytes: Monitor and replete, see above Nutrition: Renal diet. (12) No contraindication to deep vein thrombosis (DVT) prophylaxis Status: Acute Plan: Heparin 5000 units subcutaneous every 12 hours (Pk Gallagher MD R1) Problem Qualifiers (1) Right shoulder pain: Qualified Code: M25.511 - Acute pain of right shoulder Pk Gallagher MD R1 Jul 06, 2016 15:00 Thomas Mcgill MD Jul 06, 2016 19:21
[2016-07-06 16:00] VITALS: BP 112/55; PULSE 68; RESP 22; TEMP 97.1; O2SAT 95
[2016-07-06] MEDS ORDERED: HYDR25TA35 PO (17:53)
[2016-07-06] MEDS ORDERED: CALG500 PO (17:53)
[2016-07-06] MEDS ORDERED: POTA20TA5 PO (17:53)
[2016-07-06] MEDS ORDERED: CALC.25 PO (17:53)
[2016-07-06] MEDS ORDERED: MAGN400T3 PO (17:53)
[2016-07-06] MEDS ORDERED: FURO20TA PO (17:53)
--- NOTE | 2016-07-06 17:56 | HHI.DCPOC ---
Discharge Care Plan Diagnosis: (1) Fall (2) Chronic Renal Failure / insufficiency, unspec (3) Right shoulder pain (4) Generalized weakness (5) Cholecystitis (6) Hepatitis C (7) Hypocalcemia Goals to Promote Your Health * To prevent worsening of your condition and complications * To maintain your health at the optimal level Directions to Meet Your Goals Take your medications as prescribed Follow your dietary instruction Follow activity as directed Keep your appointments as scheduled Take your immunizations and boosters as scheduled If your symptoms worsen call your PCP, if no PCP go to Urgent Care Center or Emergency Room Smoking is Dangerous to Your Health. Avoid second hand smoke Call the 24-hour hour crisis hotline for domestic abuse at Lilly Alonzo MD R1 Jul 06, 2016 17:56 Lilly Alonzo MD R1 Jul 06, 2016 17:56
--- NOTE | 2016-07-06 18:11 | MB ---
cc: OSVALDO NINA DATE OF CONSULTATION 07/06/2016 REASON FOR CONSULTATION Abnormal HIDA scan. HISTORY OF PRESENT ILLNESS Mr. Ramsey is a very pleasant 80-year-old male who was admitted on 06/27/2016 for generalized weakness and electrolyte abnormalities. He has been under the care of the [facility] teaching service that involved multiple consultants during his evaluation. Apparently, the patient was noted to have some mild changes in his LFTs and he was worked up and found to have positive hepatitis profile. At some point, an ultrasound of the abdomen was ordered, even though the patient was completely asymptomatic, and this demonstrated a thickened gallbladder and some gallstones. Subsequently, after that someone ordered a HIDA scan which showed nonvisualization of the gallbladder. General surgery was consulted for commentary on the patient's gallbladder. Upon questioning the patient, he denies any right upper quadrant pain whatsoever. In reviewing the medical record, none of the physicians who have seen him have documented any complaints of right upper quadrant pain or have noted in their physical exam any right upper quadrant pain. The patient denies fatty food intolerance. He states he eats whatever he wants. He denies any previous problems with his gallbladder. He denied any history of abdominal pain whatsoever to me. PAST MEDICAL HISTORY 1. Renal insufficiency. 2. Hypertension, 3. Diabetes mellitus. PAST SURGICAL HISTORY He denies any previous surgical procedures. MEDICATIONS His medication list is extensive and documented in the EMR. ALLERGIES LISINOPRIL METFORMIN SOCIAL HISTORY He denies alcohol or cigarette use. He reports that he lives here alone. Originally from the [place] area. He does not currently smoke or drink but reports he smoked many, many years ago. He states he is active in his mormonism. REVIEW OF SYSTEMS Again, the patient denies any right upper quadrant pain. Denies any fatty food intolerance. He denies any abdominal pain whatsoever. PHYSICAL EXAMINATION VITAL SIGNS: Temperature is 97, pulse is 80 orally although he apparently has had some arrhythmias with some tachycardia according to the nurse. His blood pressure is 120/60. GENERAL: In general he is a pleasant elderly -[place] gentleman sitting in his bed watching television in no apparent stress. HEENT: Pupils equal and reactive to light. Sclerae are white. Oropharynx is clear and moist. NECK: Supple. No masses. LUNGS: Clear to auscultation bilaterally. HEART: S1-S2 no murmur. ABDOMEN: Soft, nontender, nondistended. Negative Mar sign. No obvious hernias. EXTREMITIES: Free range of motion x4. NEUROLOGIC: He is alert and oriented x3. He does have significant bilateral lower extremity edema. IMAGING STUDIES As stated, the patient has an ultrasound that shows a thickened gallbladder. He has no evidence of pericholecystic fluid. He does have some gallstones noted. His HIDA scan shows nonvisualization of the gallbladder. IMPRESSION Abnormal radiographic studies with no clinical history or complaints related to cholecystitis. PLAN At this point, I advised the patient I would not recommend any operation. I explained to him that we do not do cholecystectomies in asymptomatic patients. The patient may have a component of chronic cholecystitis and may have an obstructed cystic duct. This could have occurred many years ago, but he is completely asymptomatic and I would not recommend any surgical intervention at this time. HIDA scan performed on hospitalized patients who have had varying amounts of oral intake and possibly been given narcotics and have liver dysfunction are highly unreliable studies. I would not recommend HIDA scan unless there was a clinical indication for cholecystitis or possible obstruction. I have advised the patient that if his gallbladder did become symptomatic, specifically he complained of or developed right upper quadrant abdominal pain, that I would gladly see him back and consider cholecystectomy. At this time, the patient is not interested in any surgical intervention and I completely agree with him. MD BETTINA Muro/ /5:34 PM /5:47 PM
[2016-07-06] MEDS ORDERED: CALC667C PO (18:43)
[2016-07-06] MEDS ORDERED: CALC500C16 CHEW (18:43)
[2016-07-07] VITALS: PULSE 66; RESP 18; TEMP 96.2; O2SAT 93
[2016-07-07 03:50] LABS: HEPATITIS C RNA GENOTYPE NOT DETECTED (())
[2016-07-07] MEDS: HEPARIN SODIUM - SQ 10,000 UNITS/ML VIAL SQ SCH (05:00)
[2016-07-07 08:22] VITALS: BP 107/55; PULSE 64; RESP 18; TEMP 97.2; O2SAT 95
--- NOTE | 2016-07-07 08:45 | HHI.FPPN ---
Subjective Remarks Pt seen and examined this morning. No acute events overnight. Pt denies chest pain, abdominal pain, constipation, diarrhea. He refused to have his labs drawn this morning. There was a documented desaturation to 80 at noon on yesterday, this was discussed with pts nurse and was likely not documented correctly. Pt denies having any difficulty breathing or shortness of breath. He reports that he has not been willing to move or get out of bed due to pain, but he is unable to describe this pain. He is eager to go to rehab and participate in PT so that he can regain his strength. Objective Vitals Vital Signs Date Time Temp Pulse Resp B/P Pulse Ox O2 Delivery O2 Flow Rate FiO2 07/07/16 08:22 97.2 64 18 107/55 95 07/07/16 00:00 96.2 66 18 93 07/06/16 23:30 18 07/06/16 16:00 97.1 68 22 112/55 95 07/06/16 12:00 97.2 120 22 121/47 80 07/06/16 09:19 98.1 62 20 121/39 100 I/O 07/06/16 07/06/16 07/06/16 07/07/16 07/07/16 07/07/16 07:00 15:00 23:00 07:00 15:00 23:00 Intake Total 100 ml 442 ml 420 ml Output Total 325 ml 300 ml 700 ml 325 ml Balance -225 ml 142 ml -280 ml -325 ml Intake Oral 100 ml 442 ml 420 ml Output Urine Total 325 ml 300 ml 200 ml 325 ml Stool Total 500 ml # Bowel Movements 1 Result Diagram: 07/04/16 1026 07/04/16 1026 Objective Remarks GENERAL: Elderly, overweight Sara male lying in bed, in no acute distress SKIN: Hyperkeratotic hyperpigmented lesions present on lateral aspect of bilateral lower extremities, improved. Patient also has these lesions on his elbows and hands bilaterally. HEENT: Atraumatic. Normocephalic. Pupils equal round and reactive. Moist mucous memories. Poor dentition. Airway patent. CARDIOVASCULAR: Regular rate and rhythm with grade II/ systolic murmur RESPIRATORY: Anterior lung jean auscultated, symmetric, unlabored respirations. Breath sounds equal bilaterally. No wheezes, rales, or rhonchi. GASTROINTESTINAL: Abdomen soft, non-tender, nondistended. MUSCULOSKELETAL: Trace Pitting edema of lower extremities improving. Skin findings as above. Pt unwilling to move his lower extremities as he is concerned that this would be painful. NEUROLOGICAL: Awake and alert. Cranial nerves grossly intact. Motor and sensory function grossly intact. Speech at baseline. A/P Assessment and Plan 80-year-old man with a history of stage IV chronic kidney disease presents with generalized weakness and electrolyte abnormalities. sdw Dr. Gallagher wdw Dr. Mcgill Discharge Planning Anticipate discharge to rehabilitation later today. Problem List: (1) Cholelithiasis Status: Acute Plan: Patient found to have a thickened gallbladder and gallstone on liver ultrasound. HIDA scan did not visualize gallbladder. -GI consulted general surgery, will appreciate recommendations -Pt is currently asymptomatic, no surgical intervention recommended at this time. Pt to follow up with Gen. Surg as an out pt. -Patient denies ever being previously diagnosed with gallbladder dysfunction or cholelithiasis Imaging: HIDA 07/04: Nonvisualization of the gallbladder at 1 hour and 20 minutes, considerations would include both acute and chronic cholecystitis. Liver US 07/02: Echogenic liver with intrahepatic ductal dilatation. Markedly thickened gallbladder wall with gallstone evident. (2) Hepatitis C Status: Acute Plan: Hepatitis profile results significant for positive hepatitis C. Per EMR review there is no prior history of Hepatitis C. Pt is treatment emili. -This was discussed with patient, who denies history of hepatitis C -GI has also been consulted, appreciate recommendations -Ordered confirmatory testing with hepatitis C RNA genotype and quantitative. PCR showed less than 15 IUs per mL. PCR log showed less than 1.18 IUs per mL (3) Chronic Renal Failure / insufficiency, unspec Status: Chronic Plan: Patient CKD currently presenting with electrolyte abnormalities likely contributing to his generalized weakness. Nephrology following, appreciate recommendations. Encourage by mouth intake Continue Lasix 20 mg by mouth twice a day with potassium supplement Monitor and replete electrolytes, see below May need to consider dialysis in the future Gabapentin to be renally dosed at 100mg po daily, as needed (Creatinine clearance 11.9) (4) Hypocalcemia Status: Acute Plan: Improving. Patient presented with hypocalcemia with a calcium of 6.8 and a protein corrected calcium of 6.6. Pt has been refusing oral calcium and calcitriol. Protein corrected calcium 8.3 on 07/04. Pt refused labs this morning. Will recheck electrolytes in 2-3 days. To ensure current supplementation is sufficient. vitamin D level of 23, within normal limits Calcitriol 0.25 g by mouth daily Calcium gluconate 500 mg by mouth daily Calcium carbonate 500mg po BID Calcium acetate (PhosLo) 667 mg by mouth 3 times a day (5) Generalized weakness Status: Acute Plan: Likely multifactorial with chronic kidney disease, electrolyte abnormalities and less likely cardiac etiology given Echocardiogram showing EF of 55-60%. -Physical therapy consulted and recommended PT at rehab-- case management has arranged placement -Pt endorses pain, posssibly neuropathy, see gabapentin dosing under renal failure (6) Hypokalemia Status: Acute Plan: Improving, Patient presented with hypokalemia with potassium of 3.0 on admission. Labs from 07/04/16: Potassium of 4.4. Magnesium of 2.4. Patient refused labs this morning, will recheck electrolytes in 2-3 days KCl 20 mEq by mouth every 12 hours scheduled Magnesium oxide 400 mg by mouth daily Continue to monitor (7) Right shoulder pain Status: Acute Plan: X-ray of the right shoulder with no evidence of fracture, suspect cuff tear. - Sling for comfort - Continue physical therapy - Physical therapy recommended PT at rehab. (8) Leg edema Status: Resolved Plan: Improving. Patient presents with a h/o 6 months of lower extremity edema , likely due to chronic kidney disease and fluid overload. Echocardiogram showed ejection fraction 55-60% Holding home amlodipine Diurese with Lasix Fluid restriction less than 1.5 L per day (9) Essential hypertension Status: Chronic Plan: Pt on Amlodipine 10mg which has been held d/t LE edema. BP's currently less labile. Hydralazine 25mg by mouth QID Continue Lasix Clonidine 0.1 mg po Q6hrs prn for blood pressure over 160/90 (10) Diabetes mellitus type 2 in nonobese Status: Chronic Plan: Patient reports a history of diabetes but is not on any home medications to control his blood sugar. - Hemoglobin A1c 5.2, on 06/27. -Sliding scale discontinued as patient's blood sugars have been normal (11) Nutrition, metabolism, and development symptoms Status: Acute Plan: Fluids: Fluid restrict to less than 1.5 L per day. Electrolytes: Monitor and replete, see hypocalcemia and hypokalemia Nutrition: Renal diet. (12) No contraindication to deep vein thrombosis (DVT) prophylaxis Status: Acute Plan: Heparin 5000 units subcutaneous every 12 hours Problem Qualifiers (1) Right shoulder pain: Qualified Code: M25.511 - Acute pain of right shoulder Lauro Alejandro MD R2 Jul 07, 2016 08:45
[2016-07-07] MEDS: hydrALAZINE HCL 25 MG TAB PO SCH ×2 (09:00→13:00)
[2016-07-07] MEDS: CALCIUM CARBONATE 500 MG CHEWABLE TAB CHEW SCH (09:00)
[2016-07-07] MEDS ORDERED: GABA100C4 PO (09:06)
[2016-07-07] MEDS: ASPIRIN EC 81 MG TABEC PO SCH (10:33)
[2016-07-07] MEDS: CALCITRIOL 0.25 MCG CAP PO SCH (10:33)
[2016-07-07] MEDS: CALCIUM ACETATE 667 MG CAP PO SCH ×2 (10:33→13:00)
[2016-07-07] MEDS: FUROSEMIDE 20 MG TAB PO SCH (10:33)
[2016-07-07] MEDS: MAGNESIUM OXIDE 400 MG TAB PO SCH (10:33)
[2016-07-07] MEDS: CALCIUM GLUCONATE 500 MG TAB PO SCH (10:34)
[2016-07-07] MEDS: POTASSIUM CHLORIDE 20 MEQ CONTROLLED RELEASE TAB PO SCH (10:34)
[2016-07-07] MEDS: SODIUM CHLORIDE 0.9% FLUSH 5 ML FLUSH FLUSH SCH (10:38)
--- NOTE | 2016-07-07 11:15 | HHI.NPPN ---
Subjective History of Present Illness 80 year old male with DM,HTN,CKD Edema Additional Remarks Patient is alert, no complain, eating well, no SOB. Review of Systems General Constitutional: Fatigue Cardiovascular Cardiac: Edema Objective Data Data 07/06/16 07/07/16 19:00 07:00 Intake Total 622 ml 240 ml Output Total 300 ml 1025 ml Balance 322 ml -785 ml Intake Oral 622 ml 240 ml Output Urine Total 300 ml 525 ml Stool Total 500 ml Vital Signs Date Time Temp Pulse Resp B/P Pulse Ox O2 Delivery O2 Flow Rate FiO2 07/07/16 08:22 97.2 64 18 107/55 95 07/07/16 00:00 96.2 66 18 93 07/06/16 23:30 18 07/06/16 16:00 97.1 68 22 112/55 95 07/06/16 12:00 97.2 120 22 121/47 80 -: 07/04/16 1026 07/04/16 1026 Physical Exam General Appearance: No Acute Distress, Comfortable Neck Neck Exam: Neck Supple Pulmonary Resp Exam: Clear Bilaterally, Breath Sounds Equal Cardiology CV Exam: Regular, Normal Sinus Rhythm Gastrointestinal/Abdomen GI Exam: Soft, Non-Tender, Positive Bowel Movement Extremeties Extremities Exam: Moderate Edema, Pitting Edema, Dependent Edema Neurologic Neuro Exam: Alert, Awake Psychiatric Psych Exam: Appropriate Responses Assessment/Plan Problem List: (1) Chronic Renal Failure / insufficiency, unspec Plan: Patient has advance stage 4 chronic kidney disease. Encourage oral intake. Continue Lasix and Kcl supplement. He has advance stage 4 chronic kidney disease. Last Creatinine was stable and GFR was 18 ml/min. Urine out put is good. If D/C , will need follow up with Dr. Honeycutt. (2) Diabetes mellitus type 2 in nonobese Plan: follow BG (3) Essential hypertension Plan: monitor BP, Hydralazine increased Ranjeet Tran MD Jul 07, 2016 11:15
[2016-07-07] MEDS: ALPRAZolam 0.5 MG TAB PO PRN (14:14)
[2016-07-07] MEDS ORDERED: HALOPERIDOL 1 MG TAB PO ONE (14:30)
--- NOTE | 2016-09-03 04:58 | HHI.DS ---
Discharge Summary Admission Date Jun 29, 2016 at 13:26 Admitting Diagnosis generalized weakness, dizziness, electrolyte abnormality (1) Generalized weakness Diagnosis: Principal Plan: Likely multifactorial with chronic kidney disease, electrolyte abnormalities and less likely cardiac etiology given Echocardiogram showing EF of 55-60%. -Physical therapy consulted and recommended PT at rehab-- case management has arranged placement -Pt endorses pain, posssibly neuropathy, see gabapentin dosing under renal failure (2) Hypokalemia Diagnosis: Principal Plan: Improving, Patient presented with hypokalemia with potassium of 3.0 on admission. Labs from 07/04/16: Potassium of 4.4. Magnesium of 2.4. Patient refused labs this morning, will recheck electrolytes in 2-3 days KCl 20 mEq by mouth every 12 hours scheduled Magnesium oxide 400 mg by mouth daily Continue to monitor (3) Chronic Renal Failure / insufficiency, unspec Diagnosis: Principal Plan: Patient CKD currently presenting with electrolyte abnormalities likely contributing to his generalized weakness. Nephrology following, appreciate recommendations. Encourage by mouth intake Continue Lasix 20 mg by mouth twice a day with potassium supplement Monitor and replete electrolytes, see below May need to consider dialysis in the future Gabapentin to be renally dosed at 100mg po daily, as needed (Creatinine clearance 11.9) (4) Hypocalcemia Diagnosis: Principal Plan: Improving. Patient presented with hypocalcemia with a calcium of 6.8 and a protein corrected calcium of 6.6. Pt has been refusing oral calcium and calcitriol. Protein corrected calcium 8.3 on 07/04. Pt refused labs this morning. Will recheck electrolytes in 2-3 days. To ensure current supplementation is sufficient. vitamin D level of 23, within normal limits Calcitriol 0.25 g by mouth daily Calcium gluconate 500 mg by mouth daily Calcium carbonate 500mg po BID Calcium acetate (PhosLo) 667 mg by mouth 3 times a day (5) Cholelithiasis Diagnosis: Secondary Plan: Patient found to have a thickened gallbladder and gallstone on liver ultrasound. HIDA scan did not visualize gallbladder. -GI consulted general surgery, will appreciate recommendations -Pt is currently asymptomatic, no surgical intervention recommended at this time. Pt to follow up with Gen. Surg as an out pt. -Patient denies ever being previously diagnosed with gallbladder dysfunction or cholelithiasis Imaging: HIDA 07/04: Nonvisualization of the gallbladder at 1 hour and 20 minutes, considerations would include both acute and chronic cholecystitis. Liver US 07/02: Echogenic liver with intrahepatic ductal dilatation. Markedly thickened gallbladder wall with gallstone evident. (6) Hepatitis C Diagnosis: Secondary Plan: Hepatitis profile results significant for positive hepatitis C. Per EMR review there is no prior history of Hepatitis C. Pt is treatment emili. -This was discussed with patient, who denies history of hepatitis C -GI has also been consulted, appreciate recommendations -Ordered confirmatory testing with hepatitis C RNA genotype and quantitative. PCR showed less than 15 IUs per mL. PCR log showed less than 1.18 IUs per mL (7) Right shoulder pain Diagnosis: Secondary Plan: X-ray of the right shoulder with no evidence of fracture, suspect cuff tear. - Sling for comfort - Continue physical therapy - Physical therapy recommended PT at rehab. (8) Leg edema Diagnosis: Secondary Plan: Improving. Patient presents with a h/o 6 months of lower extremity edema , likely due to chronic kidney disease and fluid overload. Echocardiogram showed ejection fraction 55-60% Holding home amlodipine Diurese with Lasix Fluid restriction less than 1.5 L per day (9) Essential hypertension Diagnosis: Secondary Plan: Pt on Amlodipine 10mg which has been held d/t LE edema. BP's currently less labile. Hydralazine 25mg by mouth QID Continue Lasix Clonidine 0.1 mg po Q6hrs prn for blood pressure over 160/90 (10) Diabetes mellitus type 2 in nonobese Diagnosis: Secondary Plan: Patient reports a history of diabetes but is not on any home medications to control his blood sugar. - Hemoglobin A1c 5.2, on 06/27. -Sliding scale discontinued as patient's blood sugars have been normal (11) Nutrition, metabolism, and development symptoms Diagnosis: Secondary Plan: Fluids: Fluid restrict to less than 1.5 L per day. Electrolytes: Monitor and replete, see hypocalcemia and hypokalemia Nutrition: Renal diet. (12) No contraindication to deep vein thrombosis (DVT) prophylaxis Plan: Heparin 5000 units subcutaneous every 12 hours [facility] Nephrology Brief History Pt is a 80 yo man with a h/o CKD, hyperkalemia, and BL LE edema, who was in his normal state of health until yesterday afternoon when he started to "feel funny. " Pt laid down and went to sleep. He got up in the morning to go to the bathroom. As he was transferring from bed to standing, he felt lightheaded, presyncopal. As he was walking to the bathroom, he stumbled and fell on/over a chair. He reports that his legs felt weak, like he lost control of them. As a result, he couldn't get up. Fell on right arm, which currently hurts. He reports that he was down on the ground for 45 minutes until he was able to crawl to phone and call 911. He has never experienced anything like this before. Pt denies any muscle spasms, syncope, seizure, fever, dysuria, cough, skin breakdown. He endorses fatigue. Pt denies blood in urine, but endorses a weak urine stream. Pt reports 6 months of LE swelling, which is mostly staying the same. Imaging Last Impressions Hepatobiliary Scan Nuclear Medicine 07/04/16 0000 Signed Impressions: Service Date/Time: Monday, July 04, 2016 13:45 - CONCLUSION: Nonvisualization of the gallbladder at one hour and 20 minutes. Considerations would include both acute and chronic cholecystitis. Jovani Virgen MD FACR Liver Ultrasound 07/02/16 0000 Signed Impressions: Service Date/Time: Saturday, July 02, 2016 08:02 - CONCLUSION: 1. Echogenic liver with intrahepatic ductal dilatation. 2. Pancreas is obscured. 3. Markedly thickened gallbladder wall with gallstone evident. Jovani Virgen MD FACR Renal Ultrasound 06/28/16 0000 Signed Impressions: Service Date/Time: June 10:08 - CONCLUSION: 1. Kidneys are slightly echogenic which can be seen with medical renal disease. 2. Simple right renal cyst. Gordon Kelly MD Head CT 06/27/16 1126 Signed Impressions: Service Date/Time: Monday, June 27, 2016 12:09 - CONCLUSION: Negative for an acute process Jovani Virgen MD FACR Chest X-Ray 06/27/166 Signed Impressions: Service Date/Time: Monday, June 27, 2016 13:37 - CONCLUSION: No acute disease. 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 Mild spinal stenosis C3-4 and C5-6 from marginal spurring and mild disc protrusion. No acute abnormalities noted. Sam Leal MD Shoulder X-Ray 06/27/16 0000 Signed Impressions: Service Date/Time: Saturday, June 27, 2016 13:40 - CONCLUSION: Degenerative changes. Fracture is not appreciated. Jovani Virgen MD FACR PE at Discharge GENERAL: Elderly, overweight Sara male lying in bed, in no acute distress SKIN: Hyperkeratotic hyperpigmented lesions present on lateral aspect of bilateral lower extremities, improved. Patient also has these lesions on his elbows and hands bilaterally. HEENT: Atraumatic. Normocephalic. Pupils equal round and reactive. Moist mucous memories. Poor dentition. Airway patent. CARDIOVASCULAR: Regular rate and rhythm with grade II/ systolic murmur RESPIRATORY: Anterior lung jean auscultated, symmetric, unlabored respirations. Breath sounds equal bilaterally. No wheezes, rales, or rhonchi. GASTROINTESTINAL: Abdomen soft, non-tender, nondistended. MUSCULOSKELETAL: Trace Pitting edema of lower extremities improving. Skin findings as above. Pt unwilling to move his lower extremities as he is concerned that this would be painful. NEUROLOGICAL: Awake and alert. Cranial nerves grossly intact. Motor and sensory function grossly intact. Speech at baseline. Hospital Course Pt was admitted for generalized weakness, dizziness, and electrolyte abnormalities in the context of CKD. Nephrology was consulted. Pt's electrolytes were corrected and pt was discharged on oral electrolyte replacement medications. Pt also had work up of transaminitis, which found that pt was positive for hepatitis C, and patient was found to have a thickened gallbladder and gallstone on liver ultrasound. HIDA scan did not visualize gallbladder. GI consulted general surgery. Pt was currently asymptomatic, no surgical intervention was recommended at this time. Pt to follow up with Gen. Surg as an outpatient. Pt was discharged to a SNF. Pt Condition on Discharge: Stable Discharge Disposition: Discharge to SNF Discharge Instructions DIET: Follow Instructions for: Renal Failure Diet Fluid Restrictions: 1.5L Activities you can perform: See Additionl Instruction Other Activity Instructions: Per PT Follow up Referrals: Gastroenterology - 07/20/16 with Gloria Posadas MD Nephrology - 2 Weeks PCP Follow-up - 1 Week with Juana Sahni MD Surgical - 1 Month New Orders: BASIC METABOLIC PROF - 3-5 Days CALCIUM - 3-5 Days MAGNESIUM (MG) - 3-5 Days PHOSPHORUS (PO4) - 3-5 Days PROTEIN CORRECTED CA - 3-5 Days New Medications: Gabapentin (Gabapentin) 100 Mg Cap 100 MG PO DAILY PRN PAIN SCALE 1 TO 10 #30 Ref 0 CAP Calcitriol (Rocaltrol) 0.25 Mcg Cap 0.25 MCG PO DAILY #30 Ref 0 CAP Calcium Acetate (Phosphate Bin (Calcium Acetate) 667 Mg Cap 667 MG PO TID #90 CAP Calcium Carbonate (Antacid) (Calcium Carbonate (Antacid)) 500 Mg Chew 500 MG CHEW Q12HR #60 EA Furosemide (Furosemide) 20 Mg Tab 20 MG PO BID@09,18 #60 Ref 0 TAB Hydralazine (Hydralazine) 25 Mg Tab 25 MG PO QID #120 Ref 0 TAB Continued Medications: Aspirin (Aspirin) 81 Mg Tabdr 81 MG PO DAILY HTN TAB Discontinued Medications: Amlodipine (Norvasc) 10 Mg Tab 10 MG PO DAILY Blood Pressure Management #30 Ref 3 TAB Furosemide (Lasix) 40 Mg Tab 40 MG PO DAILY #30 Ref 2 TAB Gabapentin (Neurontin) 300 Mg Cap 300 MG PO TID #90 Ref 2 CAP Pk Gallagher MD R1 Sep 03, 2016 04:58
== END 2016-07-07 14:55 | DRG 641 ==
LOC: NEPC 10:59 → INTOOBSV 14:49 → NEDA 14:49 → NEDH 14:50 → UNDOADMOB 14:50 → NEPFCDU 23:27 → OBSVTOIN 06-29 13:26 → HOCB 06-30 18:31
PROVIDERS: ADMIT Family Medicine; ATTEND Family Medicine
DX: E87.6 Hypokalemia (principal); E86.0 Dehydration; N18.4 Chronic kidney disease, stage 4 (severe); K80.12 Calculus of gallbladder with acute and chronic cholecystitis without obstruction; E11.22 Type 2 diabetes mellitus with diabetic chronic kidney disease; E83.51 Hypocalcemia; B17.10 Acute hepatitis C without hepatic coma; R53.1 Weakness; R53.83 Other fatigue; R60.0 Localized edema; M25.511 Pain in right shoulder; I12.9 Hypertensive chronic kidney disease with stage 1 through stage 4 chronic kidney disease, or unspecified chronic kidney disease; D64.9 Anemia, unspecified; R82.99 Other abnormal findings in urine; R50.9 Fever, unspecified; W01.0XXA Fall on same level from slipping, tripping and stumbling without subsequent striking against object, initial encounter; Y93.01 Activity, walking, marching and hiking; Y92.009 Unspecified place in unspecified non-institutional (private) residence as the place of occurrence of the external cause; Z87.891 Personal history of nicotine dependence; Z88.8 Allergy status to other drugs, medicaments and biological substances
CPT/HCPCS: 70450; 71010; 72125; 73030; 76705; 76775; 76937; 78226; 80048; 80053; 80074; 81001; 82306; 82550; 82552; 82652; 82948; 83036; 83735; 83880; 83970; 84100; 84155; 84484; 85025; 85027; 85610; 85730; 87040; 87086; 87522; 87902; 93005; 93306; 96365; 96375; A9537; G0378; G8987-GP; G8988-GP; J0610; J0696; J1644; J2270; J2405; J3475; J3480; J7030; J7040

== ENCOUNTER 2016-07-10 16:45 | Inpatient (IN) | payer MEDICARE, OTHER ==
[~2016-07-10] VITALS: Ht 193 cm; Wt 75.0 kg
[~2016-07-10 16:45] MED LIST changes: -AMLO10 PO; +CALC.25 PO; +CALC500C16 CHEW; +CALC667C PO; +CALG500 PO; -FURO1TAB60 PO; +FURO20TA PO; +GABA100C4 PO; +HYDR25TA35 PO; +MAGN400T3 PO; -NEUR300C PO; +POTA20TA5 PO
[2016-07-10 16:55] VITALS: BP 138/65; PULSE 75; RESP 12; TEMP 97.7; O2SAT 95
[2016-07-10 17:02] VITALS: BP 138/65; PULSE 76; RESP 16; O2SAT 97
--- NOTE | 2016-07-10 17:16 | PD ---
HPI Chief Complaint: Abnormal Results Time Seen by Provider: 16:58 Travel History International Travel<30 days: No Contact w/Intl Traveler<30days: No Traveled to known affect area: No History of Present Illness HPI 80-year-old male [facility] for hyperkalemia. Blood test was drawn today and potassium was found to be 7.0. Patient was advised by his physician, Dr. Villagomez, to go to ED for evaluation. Patient denies any headache. Patient denies any chest pain or shortness of breath. Patient denies abdominal pain. Patient denies any fever chills. Patient has history Of chronic kidney disease, cholelithiasis, hepatitis C, hypertension, diabetes type 2. Patient was admitted to [facility] June 29 and discharged July 07 with diagnosis hypokalemia. Patient was given potassium supplements and discharged with prescription for KCl 20 mEq twice a day. PFSH Past Medical History Autoimmune Disease: No Cancer: No Cardiovascular Problems: No Congestive Heart Failure: Yes Diabetes: Yes Diminished Hearing: Yes Endocrine: Yes ( STOPPED METFORMIN LONG TIME AGO) Genitourinary: Yes Hypertension: Yes Immune Disorder: No Musculoskeletal: No Neurologic: No Psychiatric: No Respiratory: No Renal Failure: Yes Social History Alcohol Use: No Tobacco Use: No Substance Use: No Allergies-Medications (Allergen,Severity, Reaction): Coded Allergies: Lisinopril (Verified Allergy, Severe, 07/10/16) Metformin (Verified Allergy, Severe, 07/10/16) Reported Meds & Prescriptions Reported Meds & Active Scripts Active Gabapentin 100 Mg Cap 100 Mg PO DAILY PRN Calcium Carbonate (Antacid) 500 Mg Chew 500 Mg CHEW Q12HR Calcium Acetate (Calcium Acetate (Phosphate Bin) 667 Mg Cap 667 Mg PO TID Potassium Chloride Microencaps 20 Meq Tab 20 Meq PO Q12HR Rocaltrol (Calcitriol) 0.25 Mcg Cap 0.25 Mcg PO DAILY Furosemide 20 Mg Tab 20 Mg PO BID@18 Hydralazine (Hydralazine HCl) 25 Mg Tab 25 Mg PO QID Reported Magnesium Oxide 400 Mg Tab 400 Mg PO DAILY Oscal 500/200 D-3 (Calcium Carbonate-Vitamin D) 500-200 Mg-Unit Tab 1 Tab PO DAILY Aspirin 81 Mg Tabdr 81 Mg PO DAILY Review of Systems General / Constitutional: No: Fever Eyes: No: Visual changes HENT: No: Headaches Cardiovascular: No: Chest Pain or Discomfort Respiratory: No: Shortness of Breath Gastrointestinal: No: Abdominal Pain Genitourinary: No: Dysuria Musculoskeletal: No: Pain Skin: No Rash Neurologic: No: Weakness Psychiatric: No: Depression Endocrine: No: Polydipsia Hematologic/Lymphatic: No: Easy Bruising Physical Exam Narrative GENERAL: Well-nourished, well-developed patient. SKIN: Warm and dry. HEAD: Normocephalic. EYES: No scleral icterus. No injection or drainage. NECK: Supple, trachea midline. No JVD or lymphadenopathy. CARDIOVASCULAR: Regular rate and rhythm without murmurs, gallops, or rubs. RESPIRATORY: Breath sounds equal bilaterally. No accessory muscle use. GASTROINTESTINAL: Abdomen soft, non-tender, nondistended. MUSCULOSKELETAL: No cyanosis, or edema. BACK: Nontender without obvious deformity. No CVA tenderness. neurologic exam normal. Data Data Last Documented VS Vital Signs Date Time Temp Pulse Resp B/P Pulse Ox O2 Delivery O2 Flow Rate FiO2 07/10/16 17:02 76 16 138/65 97 Room Air 07/10/16 16:55 97.7 Orders Electrocardiogram (07/10/16 17:01) Complete Blood Count With Diff (07/10/16 17:01) Comprehensive Metabolic Panel (07/10/16 17:01) Chest, Single Ap (07/10/16 17:01) Iv Access Insert/Monitor (07/10/16 17:01) Ecg Monitoring (07/10/16 17:01) Oximetry (07/10/16 17:01) Prothrombin Time / Inr (Pt) (07/10/16 17:13) Act Partial Throm Time (Ptt) (07/10/16 17:13) Magnesium (Mg) (07/10/16 17:13) Phosphorus (Po4) (07/10/16 17:13) Labs Laboratory Tests Test 07/10/16 17:15 White Blood Count 17.3 TH/MM3 Red Blood Count 3.45 MIL/MM3 Hemoglobin 9.8 GM/DL Hematocrit 30.9 % Mean Corpuscular Volume 89.5 FL Mean Corpuscular Hemoglobin 28.3 PG Mean Corpuscular Hemoglobin 31.6 % Concent Red Cell Distribution Width 16.0 % Platelet Count 555 TH/MM3 Mean Platelet Volume 8.0 FL Neutrophils (%) (Auto) 74.4 % Lymphocytes (%) (Auto) 11.6 % Monocytes (%) (Auto) 7.7 % Eosinophils (%) (Auto) 5.6 % Basophils (%) (Auto) 0.7 % Neutrophils # (Auto) 12.9 TH/MM3 Lymphocytes # (Auto) 2.0 TH/MM3 Monocytes # (Auto) 1.3 TH/MM3 Eosinophils # (Auto) 1.0 TH/MM3 Basophils # (Auto) 0.1 TH/MM3 CBC Comment AUTO DIFF Sodium Level 142 MEQ/L Potassium Level 7.3 MEQ/L Chloride Level 110 MEQ/L Carbon Dioxide Level 19.5 MEQ/L Anion Gap 13 MEQ/L Blood Urea Nitrogen 117 MG/DL Creatinine 5.18 MG/DL Estimat Glomerular Filtration 13 ML/MIN Rate Random Glucose 92 MG/DL Calcium Level 9.3 MG/DL Total Bilirubin 0.4 MG/DL Aspartate Amino Transf 49 U/L (AST/SGOT) Alanine Aminotransferase 44 U/L (ALT/SGPT) Alkaline Phosphatase 261 U/L Total Protein 9.2 GM/DL Albumin 2.3 GM/DL [facility] Medical Decision Making Medical Screen Exam Complete: Yes Emergency Medical Condition: Yes Interpretation(s) 1801 p.m. CBC WBC 17.3. Hemoglobin 9.8 hematocrit 30.9. Platelet 555. 74 neutrophil. Sodium 142. Potassium 7.3. Chloride 110. Bicarbonate 19.5. BUN 117. Creatinine 5.18. AST 49. Alkaline phosphatase 261. Differential Diagnosis Differential diagnosis including hyperkalemia, hemolysis. Narrative Course 80-year-old male with history of chronic kidney disease and hyperkalemia. D50 1 amp IV given. Novolin R 8 units IV given. Calcium chloride 1 g IV given. Bicarbonate 1 amp IV given. Kayexalate 30 mL by mouth given. Diagnosis Primary Impression: Hyperkalemia Additional Impressions: Metabolic acidosis Acute worsening of stage 4 chronic kidney disease Admitting Information Admitting Physician Requests: Admit He Queen MD Jul 10, 2016 17:16
[2016-07-10] MEDS ORDERED: MAGN400T2 PO (17:17)
[2016-07-10] MEDS ORDERED: OSCA200T PO (17:17)
[2016-07-10 17:44] LABS: AUTOMATED NEUTROPHIL # 12.9 TH/MM3 (1.8-7.7); BASOPHIL # 0.1 TH/MM3 (0-0.2); BASOPHIL % 0.7 % (0.0-2.0); EOSINOPHIL % 5.6 % (0.0-4.0); HEMATOCRIT 30.9 % (39.0-51.0); LYMPH % 11.6 % (9.0-44.0); MEAN CELL VOLUME 89.5 FL (80.0-100.0); MEAN CORPUSCULAR HEMOGLOBIN 28.3 PG (27.0-34.0); MEAN CORPUSCULAR HGB CONC 31.6 % (32.0-36.0); MONO % 7.7 % (0.0-8.0); NEUT % 74.4 % (16.0-70.0); PLATELET COUNT 555 TH/MM3 (150-450); RED BLOOD COUNT 3.45 MIL/MM3 (4.50-5.90); WHITE BLOOD COUNT 17.3 TH/MM3 (4.0-11.0)
[2016-07-10 17:48] LABS: HEMO FLAGS AUTO DIFF
[2016-07-10 17:53] LABS: ALKALINE PHOSPHATASE 261 U/L (45-117); ALT (GPT) 44 U/L (12-78); ANION GAP 13 MEQ/L (5-15); AST (GOT) 49 U/L (15-37); BICARBONATE 19.5 MEQ/L (21.0-32.0); BLOOD UREA NITROGEN 117 MG/DL (7-18); CHLORIDE 110 MEQ/L (98-107); GLOMERULAR FILTRATION RATE 13 ML/MIN (>89); SODIUM (NA) 142 MEQ/L (136-145); TOTAL BILIRUBIN ADULT 0.4 MG/DL (0.2-1.0)
[2016-07-10 17:57] LABS: POTASSIUM 7.3 MEQ/L (3.5-5.1)
--- NOTE | 2016-07-10 17:57 | RADRPT ---
EXAM DATE/TIME: 07/10/2016 17:50 [facility] COMPARISON: CHEST SINGLE AP, June 27, 2016, 13:37. INDICATIONS : Shortness of breath. MEDICAL HISTORY : Hypertension. Congestive heart failure. Diabetes mellitus type II. Renal failure SURGICAL HISTORY : None. ENCOUNTER: Initial ACUITY: 1 day PAIN SCORE: 8/10 LOCATION: Bilateral chest FINDINGS: A single view of the chest demonstrates the lungs to be symmetrically aerated without evidence of mas s, fluid infiltrate or effusion. There is mild streaky opacity at the left lung base. The cardiomedi astinal contours are unremarkable. Osseous structures are intact. There are overlying electrocardiog [place] leads. CONCLUSION: Mild streaky opacity at the left lung base. Pk Sepulveda MD on July 10, 2016 at 17:54 Board Certified Radiologist. This report was verified electronically.
[2016-07-10] MEDS ORDERED: INSULIN HUMAN REGULAR 1,000 UNITS/10 ML VIAL IVP ONE (18:00)
[2016-07-10] MEDS ORDERED: DEXTROSE 50% IN WATER 50 ML VIAL(D50) IV PUSH ONE (18:00)
[2016-07-10] MEDS ORDERED: SODIUM POLYSTYRENE SULFONATE SUSP 15 GM/60 ML CUP PO ONE ×2 (18:00→19:15)
[2016-07-10] MEDS ORDERED: CALCIUM CHLORIDE INJ 1 GM in DEXTROSE 5% IN WATER 100ML INJ 100 ML IV ONE ×2 (18:00)
[2016-07-10] MEDS ORDERED: SODIUM BICARBONATE 8.4% INJ 50 MEQ/50 ML SYR IV PUSH ONE (18:15)
[2016-07-10 18:18] LABS: EOSINOPHILS 6 % (0-4); NEUTROPHIL # MANUAL DIFF 12.1 TH/MM3 (1.8-7.7); PLATELET ESTIMATE SMEAR HIGH (NORMAL); PLATELET MORPHOLOGY NORMAL (NORMAL); POLYS (SEG NEUTROPHILS) 70 % (16-70); SCAN/DIFF FINAL DIFF MANUAL; WBC DIFF SAMPLE 100
[2016-07-10 18:22] LABS: MAGNESIUM 3.8 MG/DL (1.5-2.5)
[2016-07-10 18:24] LABS: APTT (PATIENT) 23.8 SEC (24.3-30.1); INTERNATIONAL NORMALIZED RATIO 1.1 RATIO; PROTHROMBIN TIME - PATIENT 12.3 SEC (9.8-11.6)
[2016-07-10 18:31] VITALS: BP 164/71; PULSE 75; RESP 16; O2SAT 97
[2016-07-10] MEDS ORDERED: NALOXONE HCL 0.4 MG/ML AMP IV PRN (19:15)
[2016-07-10] MEDS ORDERED: MAGNESIUM HYDROXIDE SUSP 30 ML CUP PO PRN (19:15)
[2016-07-10] MEDS ORDERED: SODIUM CHLORIDE 0.9% FLUSH 5 ML FLUSH FLUSH PRN (19:15)
[2016-07-10] MEDS ORDERED: BISACODYL 10 MG SUPP PR PRN (19:15)
[2016-07-10] MEDS ORDERED: SENNOSIDES 8.6 MG TAB PO PRN (19:15)
[2016-07-10] MEDS ORDERED: ONDANSETRON HCL 4 MG/2 ML VIAL IVP PRN (19:15)
[2016-07-10] MEDS ORDERED: ACETAMINOPHEN 325 MG TAB PO PRN (19:15)
--- NOTE | 2016-07-10 19:18 | PD.CONS ---
HPI Service Nephrology Consult Requested By Dr. Queen Reason for Consult Chronic kidney disease with hyperkalemia Primary Care Physician Debbie Alejandro MD History of Present Illness Patient is a 80-year-old male with history of chronic kidney disease approaching ESRD, diabetes, hypertension he was recently discharged from the hospital and came back With hyperkalemia potassium was 7 in the facility and then repeat the potassium is 7.3, patient has some EKG changes peaked T waves he was given calcium, D50, insulin and sodium bicarbonate he is refusing Kayexalate, I was called for possibility of dialysis Review of Systems Constitutional: COMPLAINS OF: Fatigue Cardiovascular: COMPLAINS OF: Lower Extremity Edema Gastrointestinal: COMPLAINS OF: Nausea Immunologic/allergic: COMPLAINS OF: Urticaria Past Family Social History Allergies: Coded Allergies: Lisinopril (Verified Allergy, Severe, 07/10/16) Metformin (Verified Allergy, Severe, 07/10/16) Past Medical History Diabetes Hypertension Chronic kidney disease approaching ESRD Hypokalemia Anemia Peripheral edema Congestive heart failure Reported Medications Reported Meds & Active Scripts Active Gabapentin 100 Mg Cap 100 Mg PO DAILY PRN Calcium Carbonate (Antacid) 500 Mg Chew 500 Mg CHEW Q12HR Calcium Acetate (Calcium Acetate (Phosphate Bin) 667 Mg Cap 667 Mg PO TID Potassium Chloride Microencaps 20 Meq Tab 20 Meq PO Q12HR Rocaltrol (Calcitriol) 0.25 Mcg Cap 0.25 Mcg PO DAILY Furosemide 20 Mg Tab 20 Mg PO BID@,18 Hydralazine (Hydralazine HCl) 25 Mg Tab 25 Mg PO QID Reported Magnesium Oxide 400 Mg Tab 400 Mg PO DAILY Oscal 500/200 D-3 (Calcium Carbonate-Vitamin D) 500-200 Mg-Unit Tab 1 Tab PO DAILY Aspirin 81 Mg Tabdr 81 Mg PO DAILY Family History Noncontributory Social History Denies smoking or alcohol use Physical Exam Vital Signs Vital Signs Date Time Temp Pulse Resp B/P Pulse Ox O2 Delivery O2 Flow Rate FiO2 07/10/16 18:31 75 16 164/71 97 Room Air 07/10/16 17:02 76 16 138/65 97 Room Air 07/10/16 16:55 97.7 75 12 138/65 95 Physical Exam GENERAL: Well-nourished, well-developed patient. SKIN: Warm and dry. HEAD: Normocephalic. EYES: No scleral icterus. No injection or drainage. NECK: Supple, trachea midline. No JVD or lymphadenopathy. CARDIOVASCULAR: Regular rate and rhythm without murmurs, gallops, or rubs. RESPIRATORY: Breath sounds equal bilaterally. No accessory muscle use. GASTROINTESTINAL: Abdomen soft, non-tender, nondistended. EXTREMITIES: No cyanosis, 2+ edema. NEUROLOGICAL: Awake, alert, and oriented x 3. Non-focal. Laboratory Laboratory Tests Test 07/10/16 17:15 White Blood Count 17.3 Red Blood Count 3.45 Hemoglobin 9.8 Hematocrit 30.9 Mean Corpuscular Volume 89.5 Mean Corpuscular Hemoglobin 28.3 Mean Corpuscular Hemoglobin 31.6 Concent Red Cell Distribution Width 16.0 Platelet Count 555 Mean Platelet Volume 8.0 Neutrophils (%) (Auto) 74.4 Lymphocytes (%) (Auto) 11.6 Monocytes (%) (Auto) 7.7 Eosinophils (%) (Auto) 5.6 Basophils (%) (Auto) 0.7 Neutrophils # (Auto) 12.9 Lymphocytes # (Auto) 2.0 Monocytes # (Auto) 1.3 Eosinophils # (Auto) 1.0 Basophils # (Auto) 0.1 CBC Comment AUTO DIFF Differential Total Cells 100 Counted Neutrophils % (Manual) 70 Lymphocytes % 18 Monocytes % 6 Eosinophils % 6 Neutrophils # (Manual) 12.1 Differential Comment FINAL DIFF MANUAL Platelet Estimate HIGH Platelet Morphology Comment NORMAL Red Cell Morphology Comment NORMAL Prothrombin Time 12.3 Prothromb Time International 1.1 Ratio Activated Partial 23.8 Thromboplast Time Sodium Level 142 Potassium Level 7.3 Chloride Level 110 Carbon Dioxide Level 19.5 Anion Gap 13 Blood Urea Nitrogen 117 Creatinine 5.18 Estimat Glomerular Filtration 13 Rate Random Glucose 92 Calcium Level 9.3 Phosphorus Level 7.9 Magnesium Level 3.8 Total Bilirubin 0.4 Aspartate Amino Transf 49 (AST/SGOT) Alanine Aminotransferase 44 (ALT/SGPT) Alkaline Phosphatase 261 Total Protein 9.2 Albumin 2.3 Result Diagram: 07/10/16171407/10/161714 Imaging Last Impressions Chest X-Ray 07/10/16 170 Signed Impressions: Service Date/Time: Sunday, July 10, 2016 17:50 - CONCLUSION: Mild streaky opacity at the left lung base. Pk Sepulveda MD Assessment and Plan Problem List: (1) ESRD (end stage renal disease) Plan: I have discussed with him that his kidney failure is far advanced and electrolyte imbalance is life-threatening, he refused hemodialysis in this setting and refuse Kayexalate I and Dr. Mendoza discussed with him that his heart can stop. He can go into cardiac arrest He then said that he will take Kayexalate which was already ordered to this was discussed with the staff Given his overall situation I strongly urged him to consider hemodialysis however he is refusing it (2) Hyperkalemia Plan: Medically treated. He has advanced kidney disease and has hypokalemia and he was discharged on potassium supplements may be contributing. However he needs to take Kayexalate to get rid of the potassium burden (3) Acidosis, metabolic Plan: This is likely due to advanced renal failure (4) Hepatitis C (5) Edema Plan: Due to kidney disease Problem Qualifiers (1) Hepatitis C: Piero Honeycutt MD Jul 10, 2016 19:18
[2016-07-10] MEDS ORDERED: LORazepam 0.5 MG TAB PO PRN (19:30)
[2016-07-10] MEDS ORDERED: DEXTROSE 50% IN WATER 50 ML VIAL(D50) IV PUSH PRN (19:30)
[2016-07-10] MEDS ORDERED: hydrALAZINE HCL 20 MG/ML VIAL IV PUSH PRN (19:30)
[2016-07-10] MEDS ORDERED: GLUCAGON 1 MG/ML VIAL OTHER PRN (19:30)
[2016-07-10] MEDS: PANTOPRAZOLE SODIUM 40 MG VIAL IV PUSH SCH (19:54)
[2016-07-10] MEDS: cefTRIAXone INJ 1,000 MG in SODIUM CHLORIDE 0.9% INJ 100 ML IV SCH (19:54)
[2016-07-10] MEDS: SODIUM CHLORIDE 0.9% FLUSH 5 ML FLUSH FLUSH SCH (19:55)
[2016-07-10] MEDS: hydrALAZINE HCL 25 MG TAB PO SCH (20:00)
[2016-07-10] MEDS: INSULIN ASPART SUPPLEMENTAL SCALE SQ SCH (20:01)
[2016-07-10] MEDS: HEPARIN SODIUM - SQ 10,000 UNITS/ML VIAL SQ SCH (20:02)
[2016-07-10] MEDS: SODIUM BICARBONATE 8.4% INJ 50 MEQ in SODIUM CHLOR 0.45% 1000 ML INJ 1,000 ML IV SCH (20:34)
[2016-07-10 22:10] VITALS: BP 139/64; PULSE 76; RESP 16; O2SAT 97
[2016-07-11] VITALS (10 sets, daily range): BP systolic 129–164; BP diastolic 52–82; PULSE 66–80; RESP 16–21; TEMP 97.4–98.8; O2SAT 97–100
[2016-07-11 05:54] LABS: BLOOD, URINE NEG (NEG); COMMENT (UR) CATH-CULT NOT IND; CULTURE IF INDICATED CATH CULTURE NOT IND; GLUCOSE,URINE NEG (NEG); KETONE, URINE NEG (NEG); NITRITE,URINE NEG (NEG); SQUAMOUS EPITHELIAL CELL URINE 1 /hpf (0-5); URINE COLOR YELLOW (YELLW/STRAW)
[2016-07-11] MEDS: INSULIN ASPART SUPPLEMENTAL SCALE SQ SCH ×4 (06:49→20:49)
--- NOTE | 2016-07-11 08:35 | HHI.HP ---
History of Present Illness Primary Care Physician Debbie Alejandro MD Admission Diagnosis hyperkalemia. Metabolic acidosis. Acute on chronic kidney disease. Diagnoses: (1) Dizziness (2) Essential hypertension (3) Diabetes mellitus type 2 in nonobese (4) Leg edema (5) Cholelithiasis (6) Cholecystitis (7) Fall (8) Chronic Renal Failure / insufficiency, unspec (9) Generalized weakness (10) Metabolic acidosis (11) Acute worsening of stage 4 chronic kidney disease (12) CKD (chronic kidney disease), stage V (13) Hyperkalemia (14) Edema (15) ESRD (end stage renal disease) (16) Hepatitis C (17) Acidosis, metabolic History of Present Illness 80 y AAM. RECENT ADMIT HERE AT [facility] FOR GENERALIZED WEKANESS AND ELECTROLYTE ABNORMALITIES. PT DISCHARGED TO [facility]. PT REFUSING CARE AND MINIMIZING HIS PO INTAKE. ROUTINE LABS DEMONSTRATED K 7, I INSTRUCTED PT TO ER. I WAS CALLED BY ER MD FOR ADMIT DUE TO K GREATER THAN 7. PT GIVEN EMERGENT HYPERKALEMIA IV TREATMENT. PT NOW REFUSING CARE AND FURTHER LAB DRAWS. HE COMPLAINS OF GENERAL PAIN AND MALAISE. PT W DUODERMS TO SACRUM. PT REQUESTS TO SPEAK WITH HIS DAUGHTER IN [place]. I SUGGESTED HE COMPLY WITH NEPHROLOGY AND OUR RECOMMENDATIONS AND HE STATES HE IS NOT INTERESTED AND WANTS TO ÓSCAR ALL PARTIES INVOLVED IF HE CAN. D/W RN AND PT HAS NOT BEEN CONFUSED. Review of Systems ROS Limitations: Clinical Condition, Altered Mental Status, Uncooperative, Combative, Poor Historian Past Family Social History Allergies: Coded Allergies: Lisinopril (Verified Allergy, Severe, 07/10/16) Metformin (Verified Allergy, Severe, 07/10/16) Past Medical History CKD 5 DM HTN Past Surgical History NC Active Ordered Medications Current Medications Medications (Trade) Dose Ordered Sig/Carol Route Start Time Stop Time Status Last Admin (NS Flush) 2 ml UNSCH PRN FLUSH 07/10/16 19:15 (NS Flush) 2 ml BID FLUSH 07/10/16 21:00 07/10/16 19:55 (Tylenol) 650 mg Q4H PRN PO 07/10/16 19:15 (Zofran Inj) 4 mg Q6H PRN IVP 07/10/16 19:15 (Dulcolax Supp) 10 mg DAILY PRN CA 07/10/16 19:15 (Milk Of Magngraeme Liq) 30 ml Q12H PRN PO 07/10/16 19:15 (Senokot) 17.2 mg Q12H PRN PO 07/10/16 19:15 (Heparin Inj) 5,000 units Q12H SQ 07/10/16 21:00 07/10/16 20:02 (Narcan Inj) 0.4 mg UNSCH PRN IV 07/10/16 19:15 (D50w (Vial) Inj) 25 ml UNSCH PRN IV PUSH 07/10/16 19:30 Glucagon 1 mg 1 mg UNSCH PRN OTHER 07/10/16 19:30 (Sodium Bicarbonate 8.4% Inj/05/28 NS 1000 ml Inj) 1,050 ml @ 42 mls/hr Q24H IV 07/10/16 20:00 07/10/16 20:34 (Ativan) 0.5 mg Q8H PRN PO 07/10/16 19:30 (Apresoline Inj) 20 mg Q4H PRN IV PUSH 07/10/16 19:30 (Mcandrews 5-325 Mg) 1 tab Q4H PRN PO 07/10/16 19:30 Pantoprazole Sodium 40 mg 40 mg Q24H IV PUSH 07/10/16 20:00 07/10/16 19:54 (Rocephin Inj/NS Inj) 100 ml @ 200 mls/hr Q24H IV 07/10/16 20:00 07/10/16 19:54 (Rocaltrol) 0.25 mcg DAILY PO 07/11/16 09:00 (Phoslo) 667 mg TID PO 07/11/16 09:00 (Apresoline) 25 mg QID PO 07/10/16 21:00 07/10/16 20:00 Family History NC Social History NO E/T/D, DISABLED/RETIRED Physical Exam Vital Signs Vital Signs Date Time Temp Pulse Resp B/P Pulse Ox O2 Delivery O2 Flow Rate FiO2 07/11/16 07:45 98.0 74 147/71 100 Room Air 07/11/16 06:47 80 16 150/72 97 Room Air 07/11/16 03:49 97 07/11/16 03:00 76 16 144/68 97 Room Air 07/11/16 00:00 72 16 142/66 97 Room Air 07/10/16 22:10 76 16 139/64 97 Room Air 07/10/16 18:31 75 16 164/71 97 Room Air 07/10/16 17:02 76 16 138/65 97 Room Air 07/10/16 16:55 97.7 75 12 138/65 95 Physical Exam GENERAL: This is a well-nourished, well-developed patient, in no apparent distress. SKIN: ST 2 X TWO SACRAL AREA W TWO DUODERMS STUCK TO AREA. Cool and dry. HEAD: Atraumatic. Normocephalic. No temporal or scalp tenderness. EYES: Pupils equal round and reactive. Extraocular motions intact. No scleral icterus. No injection or drainage. ENT: Nose without bleeding, purulent drainage or septal hematoma. Throat without erythema, tonsillar hypertrophy or exudate. Uvula midline. Airway patent. NECK: Trachea midline. No JVD or lymphadenopathy. Supple, nontender, no meningeal signs. CARDIOVASCULAR: Regular rate and rhythm without murmurs, gallops, or rubs. RESPIRATORY: Clear to auscultation. Breath sounds equal bilaterally. No wheezes , rales, or rhonchi. GASTROINTESTINAL: Abdomen soft, non-tender, nondistended. No hepato-splenomegaly , or palpable masses. No guarding. MUSCULOSKELETAL: Extremities without clubbing, cyanosis, or edema. No joint tenderness, effusion, or edema noted. No calf tenderness. Negative Homans sign bilaterally. NEUROLOGICAL: Awake and alert. Cranial nerves II through XII intact. Motor and sensory grossly within normal limits. 1 out of 5 muscle strength in all muscle groups. Normal speech. Laboratory Laboratory Tests Test 07/10/16 07/11/16 17:15 05:20 White Blood Count 17.3 Red Blood Count 3.45 Hemoglobin 9.8 Hematocrit 30.9 Mean Corpuscular Volume 89.5 Mean Corpuscular Hemoglobin 28.3 Mean Corpuscular Hemoglobin 31.6 Concent Red Cell Distribution Width 16.0 Platelet Count 555 Mean Platelet Volume 8.0 Neutrophils (%) (Auto) 74.4 Lymphocytes (%) (Auto) 11.6 Monocytes (%) (Auto) 7.7 Eosinophils (%) (Auto) 5.6 Basophils (%) (Auto) 0.7 Neutrophils # (Auto) 12.9 Lymphocytes # (Auto) 2.0 Monocytes # (Auto) 1.3 Eosinophils # (Auto) 1.0 Basophils # (Auto) 0.1 CBC Comment AUTO DIFF Differential Total Cells 100 Counted Neutrophils % (Manual) 70 Lymphocytes % 18 Monocytes % 6 Eosinophils % 6 Neutrophils # (Manual) 12.1 Differential Comment FINAL DIFF MANUAL Platelet Estimate HIGH Platelet Morphology Comment NORMAL Red Cell Morphology Comment NORMAL Prothrombin Time 12.3 Prothromb Time International 1.1 Ratio Activated Partial 23.8 Thromboplast Time Sodium Level 142 Potassium Level 7.3 Chloride Level 110 Carbon Dioxide Level 19.5 Anion Gap 13 Blood Urea Nitrogen 117 Creatinine 5.18 Estimat Glomerular Filtration 13 Rate Random Glucose 92 Calcium Level 9.3 Phosphorus Level 7.9 Magnesium Level 3.8 Total Bilirubin 0.4 Aspartate Amino Transf 49 (AST/SGOT) Alanine Aminotransferase 44 (ALT/SGPT) Alkaline Phosphatase 261 Total Protein 9.2 Albumin 2.3 Urine Color YELLOW Urine Turbidity CLEAR Urine pH 5.0 Urine Specific [place] 1.013 Urine Protein 30 Urine Glucose (UA) NEG Urine Ketones NEG Urine Occult Blood NEG Urine Nitrite NEG Urine Bilirubin NEG Urine Urobilinogen LESS THAN 2.0 Urine Leukocyte Esterase TRACE Urine RBC 1 Urine WBC 3 Urine Squamous Epithelial 1 Cells Microscopic Urinalysis Comment CATH-CULT NOT IND Date/Time Procedure Status Source Growth 07/10/16 20:50 Aerobic Blood Culture Received Blood Peripheral Pending 07/10/16 20:50 Anaerobic Blood Culture Received Blood Peripheral Pending Result Diagram: 07/10/16 1715 07/10/16 1715 Imaging Last 72 hours Impressions Chest X-Ray 07/10/16 1701 Signed Impressions: Service Date/Time: Sunday, July 10, 2016 17:50 - CONCLUSION: Mild streaky opacity at the left lung base. Pk Sepulveda MD Assessment and Plan Problem List: (1) Hyperkalemia Status: Acute (2) Acidosis, metabolic Status: Acute (3) Acute worsening of stage 4 chronic kidney disease Status: Acute (4) CKD (chronic kidney disease), stage V Status: Acute (5) Pneumonia Status: Acute (6) ESRD (end stage renal disease) Status: Acute (7) Hepatitis C Status: Acute (8) Bronchitis with bronchospasm Status: Acute (9) Cough Status: Acute (10) Anemia Status: Chronic (11) Lower extremity pain Status: Acute (12) Dizziness Status: Acute (13) Essential hypertension Status: Chronic (14) Diabetes mellitus type 2 in nonobese Status: Chronic (15) Chronic Renal Failure / insufficiency, unspec Status: Chronic (16) Generalized weakness Status: Acute (17) Metabolic acidosis Status: Acute (18) Hyperkalemia Status: Acute (19) Edema Status: Acute Assessment and Plan PLAN: IVF IV ABX BLOOD CULTURES URINE CULTURE PT REFUSING LABS PALLIATIVE CONSULT HEPARIN BID FOR PROPHYLAXIS INSULIN SS DISPO: BACK TO [facility] Problem Qualifiers (1) Hepatitis C: Titus Villagomez MD Jul 11, 2016 08:34
[2016-07-11] MEDS: HEPARIN SODIUM - SQ 10,000 UNITS/ML VIAL SQ SCH ×2 (09:00→21:00)
[2016-07-11] MEDS: CALCIUM ACETATE 667 MG CAP PO SCH ×3 (09:00→18:00)
--- NOTE | 2016-07-11 11:11 | PD.CONS ---
Consult Service Palliative Care Consult Requested By Dr Villagomez . Primary Care Physician Debbie Alejandro MD Reason for Consultation a. To assist with evaluation and management of symptoms including: encephalopathy, pain b. To assist medical decision maker(s) with: better understanding of current medical conditions; weighing benefits/burdens of medical treatment options; making medical treatment decisions. (Olivia Bruno) HPI History of Present Illness This 80-year-old patient presented to the ED via EMS on 07/10/16 from local nursing facility with reports of hyperkalemia. Apparently labs obtained earlier that day with potassium findings of 7.0. He was advised to present to the ED for evaluation. Patient denying headache. Denied chest pain or shortness of breath. Pain, fever, chills. History of CKD, cholelithiasis, hep C, hypertension, diabetes. He also was known to have a recent hospital admission for hypokalemia, and was discharged with potassium supplements rx. * ED course: Potassium found at 7.3, BUN 117, creatinine 5.18. WBC 17.3. He received D50, nominal in, calcium chloride, bicarbonate, Kayexalate. Nephrology consulted for acute worsening of stage IV CKD . Nephrology evaluated patient and notes discussion with patient that kidney failure is advanced and at end-stage renal disease, electrolyte imbalance life threatening , patient refusing hemodialysis. Discuss patient high risk for cardiac arrest. Patient agreed to take Kayexalate however patient continuing to refuse hemodialysis. Of note same clinical support specialist followed with patient prior admission and also indicated patient may require dialysis in the future, approaching ESRD. From recent admission 06/29: At some point patient refusing labs that admission. He was not eating well. Some concern regarding thickened gallbladder no evidence of pericholecystic fluid some gallstones noted. HIDA scan shows nonvisualization gallbladder. Gen. surgery was consultedgeneral surgery recommends against any operative intervention asymptomatic--patient may have component of chronic cholecystitis obstructed cystic duct. Given he is completely asymptomatic would not recommend surgery. He also further notes HIDA scan on hospitals patient due to multiple other factors can be unreliable. * Palliative care consulted to assist with clarification of goals of treatment. Patient seen in room no visitors present. He is awake, mostly oriented however does at times confuse details. Able to correctly name the president, the month , thinks the date is 17th, and first names the year as 1917 but corrects himself to 2017. In terms of insight to conditions when asked why he is in the hospital he details his most recent hospital admission which was for low potassium of fall etc. Advise he is currently admitted for high potassium. He tells me he doesn't want to talk any more about his conditions and that is being treated against his will and he requests I call his daughter and his assistant county attorney. He tells me that he wishes to speak to his assistant county attorney regarding "exploitation". He is able to provide me his daughter's name advised that I would call her. He does not want any communication to his , he tells me she is in [facility] and he has not been in any communication with her (daughter verifies this.) Following discussion with daughter, he agrees to complete healthcare surrogate naming daughter Cecy. Attempt ROS, he does not wish to engage. He does endorse pain to both ankles and knees, in attempts to examine him he requests that I do not touch him, he does not want me looking him over. PE limited to visual assessment. Following exam call to patient daughter. See family conference for additional detail. Function/Cognitive Trajectory Lived at home alone until around May/June of this year though had been increasingly weak and required increased assistance. Started using a cane around April. During most recent hospitalization required discharged to nursing facility due to increased care needs. Daughter last physically saw him August, then April 2016. She details significant physical decline in that timeframe. She remains in close communication with him via phone and also feels he has had cognitive decline during that time, more significantly from April until now, with periods of confusion, left sharp. . (Olivia Bruno) Review of Systems ROS Limitations: Uncooperative, Refused Constitutional: COMPLAINS OF: Pain (BLE), Generalized weakness (per daughter, over past few mos) Cardiovascular: COMPLAINS OF: Lower Extremity Edema Musculoskeletal: COMPLAINS OF: Joint pain (BLE pain- ankles, knees per pt) Psychiatric: COMPLAINS OF: Confusion (per daugther, intermittent) (Olivia Bruno) Past Family Social History Coded Allergies: Lisinopril (Verified Allergy, Severe, 07/10/16) Metformin (Verified Allergy, Severe, 07/10/16) Past Medical History Hypertension Diabetes CKD--DX about 4 years ago Anemia Past Surgical History None . Reported Medications Gabapentin 100 Mg Cap 100 Mg PO DAILY PRN Calcium Carbonate (Antacid) 500 Mg Chew 500 Mg CHEW Q12HR Calcium Acetate (Calcium Acetate (Phosphate Bin) 667 Mg Cap 667 Mg PO TID Potassium Chloride Microencaps 20 Meq Tab 20 Meq PO Q12HR Rocaltrol (Calcitriol) 0.25 Mcg Cap 0.25 Mcg PO DAILY Furosemide 20 Mg Tab 20 Mg PO BID@,18 Hydralazine (Hydralazine HCl) 25 Mg Tab 25 Mg PO QID Magnesium Oxide 400 Mg Tab 400 Mg PO DAILY Oscal 500/200 D-3 (Calcium Carbonate-Vitamin D) 500-200 Mg-Unit Tab 1 Tab PO DAILY Aspirin 81 Mg Tabdr 81 Mg PO DAILY . Current Medications Medications (Trade) Dose Ordered Sig/Carol Route Start Time Stop Time Status Last Admin (NS Flush) 2 ml UNSCH PRN FLUSH 07/10/16 19:15 (NS Flush) 2 ml BID FLUSH 07/10/16 21:00 07/10/16 19:55 (Tylenol) 650 mg Q4H PRN PO 07/10/16 19:15 (Zofran Inj) 4 mg Q6H PRN IVP 07/10/16 19:15 (Dulcolax Supp) 10 mg DAILY PRN AL 07/10/16 19:15 (Milk Of Magngraeme Liq) 30 ml Q12H PRN PO 07/10/16 19:15 (Senokot) 17.2 mg Q12H PRN PO 07/10/16 19:15 (Heparin Inj) 5,000 units Q12H SQ 07/10/16 21:00 07/10/16 20:02 (Narcan Inj) 0.4 mg UNSCH PRN IV 07/10/16 19:15 (D50w (Vial) Inj) 25 ml UNSCH PRN IV PUSH 07/10/16 19:30 Glucagon 1 mg 1 mg UNSCH PRN OTHER 07/10/16 19:30 (Sodium Bicarbonate 8.4% Inj/05/28 NS 1000 ml Inj) 1,050 ml @ 42 mls/hr Q24H IV 07/10/16 20:00 07/10/16 20:34 (Ativan) 0.5 mg Q8H PRN PO 07/10/16 19:30 (Apresoline Inj) 20 mg Q4H PRN IV PUSH 07/10/16 19:30 ([place] 5-325 Mg) 1 tab Q4H PRN PO 07/10/16 19:30 Pantoprazole Sodium 40 mg 40 mg Q24H IV PUSH 07/10/16 20:00 07/10/16 19:54 (Rocephin Inj/NS Inj) 100 ml @ 200 mls/hr Q24H IV 07/10/16 20:00 07/10/16 19:54 (Rocaltrol) 0.25 mcg DAILY PO 07/11/16 09:00 (Phoslo) 667 mg TID PO 07/11/16 09:00 (Apresoline) 25 mg QID PO 07/10/16 21:00 07/10/16 20:00 Family History Reports parents from old age. Substance Use Tobacco: Former smoker, smoked 1 PPD 10 years about 50 years ago. None currently. Alcohol: None Prescription med abuse: None Illicits: None . Psychosocial History Originally from [place]. [employer]. 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 Lived in private home until most recent hospital admission and due to deteriorating status required facility placement. Estranged from his spouse for many years, she lives in [facility] and has lived there, no communication with the patient for past several years. Patient remains in close communication with his daughter Cecy, as well as his Esperanza who lives in [place]. 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 (Olivia Bruno) Living Will: Never completed Health Care Surrogate: Copy in medical record (completed HCS naming dtr Cecy today ) Durable Power of Breast Buffer: Never completed Date completed: 07/11/16 Health Care Surrogate(s): obey Sam (Olivia Bruno) Physical Exam Vital Signs Date Time Temp Pulse Resp B/P Pulse Ox O2 Delivery O2 Flow Rate FiO2 07/11/16 09:30 70 Room Air 07/11/16 08:11 97 21 07/11/16 07:45 98.0 74 147/71 100 Room Air 07/11/16 06:47 80 16 150/72 97 Room Air 07/11/16 03:49 97 07/11/16 03:00 76 16 144/68 97 Room Air 07/11/16 00:00 72 16 142/66 97 Room Air 07/10/16 22:10 76 16 139/64 97 Room Air 07/10/16 18:31 75 16 164/71 97 Room Air 07/10/16 17:02 76 16 138/65 97 Room Air 07/10/16 16:55 97.7 75 12 138/65 95 07/10/16 07/11/16 19:00 07:00 Output Total 600 ml Balance -600 ml Output Urine Total 600 ml # Voids 1 Exam *Limited as patient does not want me to touch him. CONSTITUTIONAL/GENERAL: This is a frail-appearing, poorly groomed elderly male. Somewhat paranoid. SKIN: No visible jaundice, rashes, or lesions.No wounds seen anteriorly. HEAD: Appears Atraumatic. EYES: Pupils equal and round and reactive. Extraocular motions intact. No scleral icterus. ENT: Slightly hard of hearing. Nose without bleeding or purulent drainage. CARDIOVASCULAR: Regular rate and rhythm observed on bedside monitor. Generalized edema to bilateral lower legs, feet observed. RESPIRATORY/CHEST: Symmetric, unlabored respirations observed. On room air. MUSCULOSKELETAL: Significant edema to bilateral lower extremities visible. NEUROLOGICAL: Awake and alert. Mostly oriented, at times confuses detail. Some limited insight. Not entirely cooperative. Does move all 4 extremities spontaneously. Appears to have generalized weakness. PSYCHIATRIC: Some paranoia. (Olivia Bruno) Diagnostic Tests Laboratory Laboratory Tests Test 07/10/16 07/11/16 17:15 05:20 White Blood Count 17.3 TH/MM3 (4.0-11.0) Red Blood Count 3.45 MIL/MM3 (4.50-5.90) Hemoglobin 9.8 GM/DL (13.0-17.0) Hematocrit 30.9 % (39.0-51.0) Mean Corpuscular Volume 89.5 FL (80.0-100.0) Mean Corpuscular Hemoglobin 28.3 PG (27.0-34.0) Mean Corpuscular Hemoglobin 31.6 % Concent (32.0-36.0) Red Cell Distribution Width 16.0 % (11.6-17.2) Platelet Count 555 TH/MM3 (150-450) Mean Platelet Volume 8.0 FL (7.0-11.0) Neutrophils (%) (Auto) 74.4 % (16.0-70.0) Lymphocytes (%) (Auto) 11.6 % (9.0-44.0) Monocytes (%) (Auto) 7.7 % (0.0-8.0) Eosinophils (%) (Auto) 5.6 % (0.0-4.0) Basophils (%) (Auto) 0.7 % (0.0-2.0) Neutrophils # (Auto) 12.9 TH/MM3 (1.8-7.7) Lymphocytes # (Auto) 2.0 TH/MM3 (1.0-4.8) Monocytes # (Auto) 1.3 TH/MM3 (0-0.9) Eosinophils # (Auto) 1.0 TH/MM3 (0-0.4) Basophils # (Auto) 0.1 TH/MM3 (0-0.2) CBC Comment AUTO DIFF Differential Total Cells 100 Counted Neutrophils % (Manual) 70 % (16-70) Lymphocytes % 18 % (9-44) Monocytes % 6 % (0-8) Eosinophils % 6 % (0-4) Neutrophils # (Manual) 12.1 TH/MM3 (1.8-7.7) Differential Comment FINAL DIFF MANUAL Platelet Estimate HIGH (NORMAL) Platelet Morphology Comment NORMAL (NORMAL) Red Cell Morphology Comment NORMAL (NORMAL) Prothrombin Time 12.3 SEC (9.8-11.6) Prothromb Time International 1.1 RATIO Ratio Activated Partial 23.8 SEC Thromboplast Time (24.3-30.1) Sodium Level 142 MEQ/L (136-145) Potassium Level 7.3 MEQ/L (3.5-5.1) Chloride Level 110 MEQ/L (98-107) Carbon Dioxide Level 19.5 MEQ/L (21.0-32.0) Anion Gap 13 MEQ/L (5-15) Blood Urea Nitrogen 117 MG/DL (7-18) Creatinine 5.18 MG/DL (0.60-1.30) Estimat Glomerular Filtration 13 ML/MIN (>89) Rate Random Glucose 92 MG/DL (74-106) Calcium Level 9.3 MG/DL (8.5-10.1) Phosphorus Level 7.9 MG/DL (2.5-4.9) Magnesium Level 3.8 MG/DL (1.5-2.5) Total Bilirubin 0.4 MG/DL (0.2-1.0) Aspartate Amino Transf 49 U/L (15-37) (AST/SGOT) Alanine Aminotransferase 44 U/L (12-78) (ALT/SGPT) Alkaline Phosphatase 261 U/L (45-117) Total Protein 9.2 GM/DL (6.4-8.2) Albumin 2.3 GM/DL (3.4-5.0) Urine Color YELLOW (YELLW/STRAW) Urine Turbidity CLEAR (CLEAR) Urine pH 5.0 (5.0-8.5) Urine Specific Anita 1.013 (1.002-1.035) Urine Protein 30 mg/dL (NEG-TRACE) Urine Glucose (UA) NEG mg/dL (NEG) Urine Ketones NEG mg/dL (NEG) Urine Occult Blood NEG (NEG) Urine Nitrite NEG (NEG) Urine Bilirubin NEG (NEG) Urine Urobilinogen LESS THAN 2.0 MG/DL (LESS THAN 2.0) Urine Leukocyte Esterase TRACE (NEG) Urine RBC 1 /hpf (0-3) Urine WBC 3 /hpf (0-5) Urine Squamous Epithelial 1 /hpf (0-5) Cells Microscopic Urinalysis Comment CATH-CULT NOT IND (Olivia Bruno) Result Diagram: 07/10/16171407/10/16 1715 Microbiology Microbiology Date/Time Procedure Status Source Growth 07/10/16 20:40 Aerobic Blood Culture Received Blood Peripheral Pending 07/10/16 20:40 Anaerobic Blood Culture Received Blood Peripheral Pending 07/10/16 20:50 Aerobic Blood Culture Received Blood Peripheral Pending 07/10/16 20:50 Anaerobic Blood Culture Received Blood Peripheral Pending Imaging Last Impressions Chest X-Ray 07/10/16 1701 Signed Impressions: Service Date/Time: Sunday, July 10, 2016 17:50 - CONCLUSION: Mild streaky opacity at the left lung base. Pk Sepulveda MD (Olivia Bruno) Patient/Family Conference Present at Family Conference: Rachel Sam Family Conference Time (mins): 30 Family Conference Location: Telephone Issues Discussed: Patient with limited engagement, see history of present illness for patient component. Following discussion with patient call to rachel Sam per his request. Spoke with her regarding the following: * Palliative care role, purpose, approach * Additional medical, psychosocial, and spiritual history * Patients general health, functional status, and cognitive changes in the months leading up to the current hospitalization * Patient/family understanding of the current medical problems * Patient/family understanding of prognosis * Patients goals of care as best understood from advance directives and/or conversations and/or values * Current medical treatment options and benefits/burdens of those options * CODE STATUSelects DNR * Legal decision makerpatient has indicated he wishes to designate daughter as HCS * Likely scenarios comparing ongoing aggressive care with a transition to comfort measures only-review hospice role/ philosophy * Questions answered to the best of my ability * Palliative care contact information provided In summarydaughter Cecy appears to have a clear understanding of patient's current conditions/options. She details that patient has always been very independent, very clear in his wishes. She knows that he would absolutely not want dialysis nor CPR nor recurrent hospitalizations for his health deteriorates. She indicates it would be important for him to focus on comfort at end-of-life, and requests hospice evaluation and admission to hospice services. She understands limited life expectancy if he does not pursue further aggressive measures, wishes to proceed with hospice based on her father' s known wishes. Following discussion with Cecy, patient requesting to speak to her, there are no phones in the ED so I provided my cell phone and dialed Cecy so that she and patient might speak directly--patient speaks to her regarding arranging his financial affairs and making payments, apologizes for being a burden to her. (Olivia Bruno) Assessment and Plan Disease Oriented Problem List: (1) Hyperkalemia (2) Essential hypertension (3) Anemia (4) CKD (chronic kidney disease), stage V (5) Diabetes mellitus type 2 in nonobese (6) Acute worsening of stage 4 chronic kidney disease Symptom Scale: (1) Encephalopathy 0-10 Scale: Unable to quantify (2) Lower extremity pain 0-10 Scale: Unable to quantify Pertinent Non-Medical Issues Psychosocial: Originally from [place]. 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 Lived in private home until most recent hospital admission and due to deteriorating status required facility placement. Estranged from his spouse for many years, she lives in [facility] and has lived there, no communication with the patient for past several years. Patient remains in close communication with his daughter Cecy, as well as his Esperanza who lives in [place]. 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 has completed health care surrogate designation naming his daughter Cecy as legal HCS. Ethical issues impacting care: Important Contacts Spouse Yvrose Ramsey [phone] Daughter Cecy Rodríguez [phone] /[phone] Prognosis This patient presented this hospitalization for hyperkalemia requiring multiple interventions, appearing renal failure is progressing to end-stage renal failure. Patient will likely require dialysis. Condition will be terminal if he elects not to proceed with hemodialysis. Case he would be appropriate for hospice if goals compatible. However if he does elect to proceed with hemodialysis, his renal failure could continue to be managed. . Code Status: No Code Plan * Legal decision maker: Patient mental status fluctuates likely secondary to encephalopathymultifactorial. He has some insights on some things however refuses to engage or discuss other things. In making would be best supported by a legal decision maker. He is clear that he does want his daughter involved and would trust her to make his decisions, today completed HCS designation naming his daughter Cecy Pan (he has been estranged from his spouse for many years) * Goals: Goals are comfort oriented as per the patient as well as daughter. There is some concern about the patient's insight though he does seem to understand he would without ongoing treatments. Limited engagement with him due to his mental status, paranoia. Length discussion with his daughter today. She also expresses comfort oriented goals, and feels patient has always been very clear he would not want heroic or artificial measures without significant improvement to the quality of his life. She requests no dialysis, no CPR/DNR, hospice consult. Hospice consult has been placedcall to hospice admissions. * CODE STATUS: DNR * SYMPTOMS: --Encephalopathymultifactorialend-stage renal failure,? Sepsis/infection elevated WBC --Painendorses pain to ankles and knees however will not allow me to examine him, will not provide pain rating for me. * Palliative care will continue to follow during hospital course as condition evolves, to assist patient/decision-maker with understanding of medical conditions, weighing benefits/burdens of treatment options, for clarification of goals of treatment. Additionally will assist with any symptoms of palliative concern (Olivia Bruno) Time Spent Total Floor Time (mins): 65 (Olivia Bruno) Thank you for the opportunity to participate in the care of Mr. Ramsey. (Olivia Bruno) Attestation To help prompt me to consider important information that might be impacting today's encounter and assessment, information from prior notes written by myself or my colleagues may have been "brought forward" into today's note. My signature on this note, however, is an attestation that I personally performed the exam, history, and/or decision-making noted today, and, unless otherwise indicated, the interactions with patient, family, and staff as well as the review of records all occurred today. I also attest that the listed assessment and stated plan reflect my best clinical judgment today based on the combination of historical information, prior notes, and today's exam/ interactions. When time spent is documented, it refers only to time spent today by the signer, or if indicated, combined time spent today by collaborating physician/nurse practitioner. (Olivia Bruno) Collaborating MD Comments Chart reviewed. Case discussed with palliative care FILLER FEEDER. Above SIMON note reviewed and I concur. . (Matheus Lebron MD) Olivia Bruno Jul 11, 2016 11:11 Matheus Lebron MD Jul 15, 2016 08:17
[2016-07-11] MEDS: hydrALAZINE HCL 25 MG TAB PO SCH ×4 (12:42→21:00)
[2016-07-11] MEDS: CALCITRIOL 0.25 MCG CAP PO SCH (12:42)
[2016-07-11] MEDS: SODIUM CHLORIDE 0.9% FLUSH 5 ML FLUSH FLUSH SCH ×2 (12:43→21:00)
--- NOTE | 2016-07-11 14:08 | HHI.NPPN ---
Subjective History of Present Illness 80 year old AA male ESRD,Hyperkalemia, DM Refusing HD Review of Systems General Constitutional: Fatigue Objective Data Data 07/10/16 07/11/16 19:00 07:00 Output Total 600 ml Balance -600 ml Output Urine Total 600 ml # Voids 1 Vital Signs Date Time Temp Pulse Resp B/P Pulse Ox O2 Delivery O2 Flow Rate FiO2 07/11/16 11:02 Room Air 07/11/16 11:01 77 19 152/52 97 Room Air 07/11/16 09:30 97.6 70 21 164/71 98 Room Air 07/11/16 08:11 97 21 07/11/16 07:45 98.0 74 147/71 100 Room Air 07/11/16 06:47 80 16 150/72 97 Room Air 07/11/16 03:49 97 07/11/16 03:00 76 16 144/68 97 Room Air 07/11/16 00:00 72 16 142/66 97 Room Air 07/10/16 22:10 76 16 139/64 97 Room Air 07/10/16 18:31 75 16 164/71 97 Room Air 07/10/16 17:02 76 16 138/65 97 Room Air 07/10/16 16:55 97.7 75 12 138/65 95 -: 07/10/16 1715 07/10/16 1715 Microbiology 07/10/16 Aerobic Blood Culture - Preliminary, Resulted NO GROWTH IN 1 DAY 07/10/16 Anaerobic Blood Culture - Preliminary, Resulted NO GROWTH IN 1 DAY 07/10/16 Aerobic Blood Culture - Preliminary, Resulted NO GROWTH IN 1 DAY 07/10/16 Anaerobic Blood Culture - Preliminary, Resulted NO GROWTH IN 1 DAY Physical Exam General Appearance: Well Developed, Pale Neck Neck Exam: Neck Supple Pulmonary Resp Exam: Decreased Bases Cardiology CV Exam: Regular Gastrointestinal/Abdomen GI Exam: Soft Extremeties Extremities Exam: Moderate Edema Assessment/Plan Problem List: (1) ESRD (end stage renal disease) Plan: I have discussed again long discussion, CVC placement, length of dialysis , Out pt center visits , Length and frequency discussed he then said "I have not enough information" to decide he was told to read on it consequence of non compliance discussed electrolyte imbalance and from cardiac arrest no decision yet no blood test either (2) Hyperkalemia Plan: Medically treated. He has advanced kidney disease and has hypokalemia and he was discharged on potassium supplements may be contributing. However he needs to take Kayexalate to get rid of the potassium burden (3) Acidosis, metabolic Plan: This is likely due to advanced renal failure (4) Hepatitis C (5) Edema Plan: Due to kidney disease Problem Qualifiers (1) Hepatitis C: Piero Honeycutt MD Jul 11, 2016 14:08
[2016-07-11] MEDS: cefTRIAXone INJ 1,000 MG in SODIUM CHLORIDE 0.9% INJ 100 ML IV SCH (20:00)
[2016-07-11] MEDS: PANTOPRAZOLE SODIUM 40 MG VIAL IV PUSH SCH (22:55)
[2016-07-11] MEDS: SODIUM BICARBONATE 8.4% INJ 50 MEQ in SODIUM CHLOR 0.45% 1000 ML INJ 1,000 ML IV SCH (22:55)
--- NOTE | 2016-07-11 23:01 | EKG ---
Date Performed: 07/10/2016 Time Performed: 17:22:40 PTAGE: 80 years EKG: Sinus rhythm NORMAL ECG PREVIOUS TRACING : 06/27/2016 11.26 DOCTOR: Memo Crane Interpretating Date/Time 07/11/2016 22:57:34
[2016-07-12 03:37] VITALS: BP 138/84; PULSE 68; RESP 16; TEMP 98.7; O2SAT 97
[2016-07-12 06:16] VITALS: O2SAT 98
[2016-07-12] MEDS: INSULIN ASPART SUPPLEMENTAL SCALE SQ SCH ×4 (07:00→19:57)
[2016-07-12 07:44] VITALS: BP 142/61; PULSE 72; RESP 16; O2SAT 74
[2016-07-12] MEDS: HEPARIN SODIUM - SQ 10,000 UNITS/ML VIAL SQ SCH ×2 (09:00→19:56)
[2016-07-12] MEDS: CALCITRIOL 0.25 MCG CAP PO SCH (09:00)
[2016-07-12] MEDS: hydrALAZINE HCL 25 MG TAB PO SCH ×4 (09:27→19:55)
[2016-07-12] MEDS: CALCIUM ACETATE 667 MG CAP PO SCH ×3 (09:27→17:12)
[2016-07-12] MEDS: SODIUM CHLORIDE 0.9% FLUSH 5 ML FLUSH FLUSH SCH ×2 (09:28→19:54)
[2016-07-12 11:44] VITALS: BP 164/84; PULSE 72; RESP 18; TEMP 97.7; O2SAT 84
--- NOTE | 2016-07-12 12:10 | HHI.FPPN ---
Subjective Remarks REFUSING TO LISTEN D/W RN REFUSING LABS Objective Vitals Vital Signs Date Time Temp Pulse Resp B/P Pulse Ox O2 Delivery O2 Flow Rate FiO2 07/12/16 11:44 97.7 72 18 164/84 84 07/12/16 07:44 72 16 142/61 74 07/12/16 06:16 98 07/12/16 03:37 98.7 68 16 138/84 97 07/11/16 20:14 98.8 67 18 145/65 97 07/11/16 16:39 97.4 66 17 129/82 I/O 07/11/16 07/11/16 07/11/16 07/12/16 07/12/16 07/12/16 07:00 15:00 23:00 07:00 15:00 23:00 Intake Total 120 ml Output Total 600 ml Balance -600 ml 120 ml Intake Oral 120 ml Output Urine Total 600 ml # Voids 1 1 1 # Bowel Movements 1 1 Result Diagram: 07/10/16171407/10/161714 Objective Remarks GENERAL: SKIN: Warm and dry. HEAD: Atraumatic. Normocephalic. EYES: Pupils equal and round. No scleral icterus. No injection or drainage. ENT: No nasal bleeding or discharge. Mucous membranes pink and moist. NECK: Trachea midline. No JVD. CARDIOVASCULAR: Regular rate and rhythm. RESPIRATORY: No accessory muscle use. Clear to auscultation. Breath sounds equal bilaterally. GASTROINTESTINAL: Abdomen soft, non-tender, nondistended. Hepatic and splenic margins not palpable. MUSCULOSKELETAL: Extremities without clubbing, cyanosis, or edema. No obvious deformities. NEUROLOGICAL: Awake and alert. No obvious cranial nerve deficits. Motor grossly within normal limits. Five out of 5 muscle strength in the arms and legs. Normal speech. PSYCHIATRIC: Appropriate mood and affect; insight and judgment normal. Medications and IVs Current Medications Medications (Trade) Dose Ordered Sig/Carol Route Start Time Stop Time Status Last Admin (NS Flush) 2 ml UNSCH PRN FLUSH 07/10/16 19:15 (NS Flush) 2 ml BID FLUSH 07/10/16 21:00 07/12/16 09:28 (Tylenol) 650 mg Q4H PRN PO 07/10/16 19:15 (Zofran Inj) 4 mg Q6H PRN IVP 07/10/16 19:15 (Dulcolax Supp) 10 mg DAILY PRN ID 07/10/16 19:15 (Milk Of Magnesia Liq) 30 ml Q12H PRN PO 07/10/16 19:15 (Senokot) 17.2 mg Q12H PRN PO 07/10/16 19:15 (Heparin Inj) 5,000 units Q12H SQ 07/10/16 21:00 07/10/16 20:02 (Narcan Inj) 0.4 mg UNSCH PRN IV 07/10/16 19:15 (D50w (Vial) Inj) 25 ml UNSCH PRN IV PUSH 07/10/16 19:30 Glucagon 1 mg 1 mg UNSCH PRN OTHER 07/10/16 19:30 (Sodium Bicarbonate 8.4% Inj/05/28 NS 1000 ml Inj) 1,050 ml @ 42 mls/hr Q24H IV 07/10/16 20:00 07/11/16 22:55 (Ativan) 0.5 mg Q8H PRN PO 07/10/16 19:30 (Apresoline Inj) 20 mg Q4H PRN IV PUSH 07/10/16 19:30 ([place] 5-325 Mg) 1 tab Q4H PRN PO 07/10/16 19:30 Pantoprazole Sodium 40 mg 40 mg Q24H IV PUSH 07/10/16 20:00 07/11/16 22:55 (Rocephin Inj/NS Inj) 100 ml @ 200 mls/hr Q24H IV 07/10/16 20:00 07/11/16 20:00 (Rocaltrol) 0.25 mcg DAILY PO 07/11/16 09:00 07/11/16 12:42 (Phoslo) 667 mg TID PO 07/11/16 09:00 07/12/16 09:27 (Apresoline) 25 mg QID PO 07/10/16 21:00 07/12/16 09:27 A/P Problem List: (1) Hyperkalemia Status: Acute (2) Edema Status: Acute (3) ESRD (end stage renal disease) Status: Acute (4) Hepatitis C Status: Acute (5) Acidosis, metabolic Status: Acute (6) Cholelithiasis Status: Acute (7) Dizziness Status: Acute (8) Essential hypertension Status: Chronic (9) Anemia Status: Chronic (10) Generalized weakness Status: Acute (11) Diabetes mellitus type 2 in nonobese Status: Chronic (12) Encephalopathy Status: Acute Plan: PLAN: PT REFUSING LABS AND CARE. EXPECT PASSING SOON WITHOUT FURTHER WORKUP. HOSPICE CONSULT. CONSULTS TO NEPHRO, PALLIATIVE CARE REVIEWED. SEE MY ORDERS PLEASE. PT HAS BEEN OBS FOR TWO MIDNIGHTS, EXPECT AT LEAST 1 MORE NIGHT INPT STAY IF PT GOES HOSPICE, IF DECIDES ON TREATMENT WHICH IT APPEARS HE WILL NOT, WOULD EXPECT AT LEAST 4 DAYS INPT STAY. PT WOULD WITHOUT INPT CARE. Problem Qualifiers (1) Hepatitis C: Titus Villagomez MD Jul 12, 2016 12:10
--- NOTE | 2016-07-12 13:34 | HHI.NPPN ---
Subjective History of Present Illness 80 year old AA male ESRD,Hyperkalemia, DM Refusing HD Review of Systems General Constitutional: Fatigue Objective Data Data 07/11/16 07/12/16 19:00 07:00 Intake Total 120 ml Balance 120 ml Intake Oral 120 ml # Voids 1 1 # Bowel Movements 1 1 Vital Signs Date Time Temp Pulse Resp B/P Pulse Ox O2 Delivery O2 Flow Rate FiO2 07/12/16 11:44 97.7 72 18 164/84 84 07/12/16 07:44 72 16 142/61 74 07/12/16 06:16 98 07/12/16 03:37 98.7 68 16 138/84 97 07/11/16 20:14 98.8 67 18 145/65 97 07/11/16 16:39 97.4 66 17 129/82 -: 07/10/16 1715 07/10/16 1715 Physical Exam General Appearance: Well Developed, Pale Neck Neck Exam: Neck Supple Pulmonary Resp Exam: Decreased Bases Cardiology CV Exam: Regular Gastrointestinal/Abdomen GI Exam: Soft Extremeties Extremities Exam: Moderate Edema Assessment/Plan Problem List: (1) ESRD (end stage renal disease) Plan: his decision remained unchanged No Dialysis aware of consequences No blood draw wants to be discharged I will sign off (2) Hyperkalemia Plan: Medically treated. (3) Acidosis, metabolic Plan: This is likely due to advanced renal failure (4) Hepatitis C (5) Edema Plan: Due to kidney disease Problem Qualifiers (1) Hepatitis C: Piero Honeycutt MD Jul 12, 2016 13:34
[2016-07-12 15:49] VITALS: BP 139/56; PULSE 72; RESP 16; O2SAT 97
[2016-07-12] MEDS: ACETAMINOPHEN/HYDROcodone 325 MG/5 MG TAB PO PRN (17:45)
[2016-07-12] MEDS: SODIUM BICARBONATE 8.4% INJ 50 MEQ in SODIUM CHLOR 0.45% 1000 ML INJ 1,000 ML IV SCH (19:41)
[2016-07-12] MEDS: cefTRIAXone INJ 1,000 MG in SODIUM CHLORIDE 0.9% INJ 100 ML IV SCH (19:41)
[2016-07-12] MEDS: PANTOPRAZOLE SODIUM 40 MG VIAL IV PUSH SCH (19:54)
[2016-07-12 21:09] VITALS: BP 141/68; PULSE 68; RESP 18; TEMP 98; O2SAT 98
[2016-07-13] VITALS: BP 147/74; PULSE 74; RESP 18; TEMP 98.4; O2SAT 97
[2016-07-13] MEDS: ACETAMINOPHEN/HYDROcodone 325 MG/5 MG TAB PO PRN ×3 (05:14→18:50)
[2016-07-13 06:15] VITALS: O2SAT 95
[2016-07-13] MEDS: INSULIN ASPART SUPPLEMENTAL SCALE SQ SCH ×3 (07:00→16:00)
[2016-07-13] MEDS: CALCIUM ACETATE 667 MG CAP PO SCH ×3 (09:00→17:27)
[2016-07-13] MEDS: HEPARIN SODIUM - SQ 10,000 UNITS/ML VIAL SQ SCH (09:00)
[2016-07-13] MEDS: SODIUM CHLORIDE 0.9% FLUSH 5 ML FLUSH FLUSH SCH (09:00)
[2016-07-13] MEDS: hydrALAZINE HCL 25 MG TAB PO SCH ×3 (09:00→17:26)
[2016-07-13] MEDS: CALCITRIOL 0.25 MCG CAP PO SCH (09:00)
--- NOTE | 2016-07-13 09:26 | HHI.FPPN ---
Subjective Remarks PT REFUSING LABS REFUSING CARE WANTS TO BE DISCHARGED HOME YET HE REPORTS HE DOES NOT HAVE A HOME. STATES HE WANTS TO HAVE THE OPINION OF DR YEE HIS PCP. Objective Vitals Vital Signs Date Time Temp Pulse Resp B/P Pulse Ox O2 Delivery O2 Flow Rate FiO2 07/13/16 06:15 95 07/13/16 00:00 98.4 74 18 147/74 97 07/12/16 21:09 98.0 68 18 141/68 98 07/12/16 15:49 72 16 139/56 97 07/12/16 11:44 97.7 72 18 164/84 84 I/O 07/12/16 07/12/16 07/12/16 07/13/16 07/13/16 07/13/16 07:00 15:00 23:00 07:00 15:00 23:00 Intake Total 422 ml Balance 422 ml IV Total 422 ml # Voids 3 Result Diagram: 07/10/16171407/10/161714 Objective Remarks GENERAL: SKIN: Warm and dry. HEAD: Atraumatic. Normocephalic. EYES: Pupils equal and round. No scleral icterus. No injection or drainage. ENT: No nasal bleeding or discharge. Mucous membranes pink and moist. NECK: Trachea midline. No JVD. CARDIOVASCULAR: Regular rate and rhythm. RESPIRATORY: No accessory muscle use. Clear to auscultation. Breath sounds equal bilaterally. GASTROINTESTINAL: Abdomen soft, non-tender, nondistended. Hepatic and splenic margins not palpable. MUSCULOSKELETAL: 1 plus edema bilateral legs to mid tibias NEUROLOGICAL: Awake and alert. No obvious cranial nerve deficits. Motor grossly within normal limits. 1 out of 5 muscle strength in the arms and legs. Normal speech. PSYCHIATRIC: Agitated, angry. Medications and IVs Current Medications Medications (Trade) Dose Ordered Sig/Carol Route Start Time Stop Time Status Last Admin (NS Flush) 2 ml UNSCH PRN FLUSH 07/10/16 19:15 (NS Flush) 2 ml BID FLUSH 07/10/16 21:00 07/12/16 19:54 (Tylenol) 650 mg Q4H PRN PO 07/10/16 19:15 (Zofran Inj) 4 mg Q6H PRN IVP 07/10/16 19:15 (Dulcolax Supp) 10 mg DAILY PRN [place] 07/10/16 19:15 (Milk Of [place] Liq) 30 ml Q12H PRN PO 07/10/16 19:15 (Senokot) 17.2 mg Q12H PRN PO 07/10/16 19:15 (Heparin Inj) 5,000 units Q12H SQ 07/10/16 21:00 07/10/16 20:02 (Narcan Inj) 0.4 mg UNSCH PRN IV 07/10/16 19:15 (D50w (Vial) Inj) 25 ml UNSCH PRN IV PUSH 07/10/16 19:30 Glucagon 1 mg 1 mg UNSCH PRN OTHER 07/10/16 19:30 (Sodium Bicarbonate 8.4% Inj/05/28 NS 1000 ml Inj) 1,050 ml @ 42 mls/hr Q24H IV 07/10/16 20:00 07/12/16 19:41 (Ativan) 0.5 mg Q8H PRN PO 07/10/16 19:30 (Apresoline Inj) 20 mg Q4H PRN IV PUSH 07/10/16 19:30 ([place] 5-325 Mg) 1 tab Q4H PRN PO 07/10/16 19:30 07/13/16 05:14 Pantoprazole Sodium 40 mg 40 mg Q24H IV PUSH 07/10/16 20:00 07/12/16 19:54 (Rocephin Inj/NS Inj) 100 ml @ 200 mls/hr Q24H IV 07/10/16 20:00 07/12/16 19:41 (Rocaltrol) 0.25 mcg DAILY PO 07/11/16 09:00 07/11/16 12:42 (Phoslo) 667 mg TID PO 07/11/16 09:00 07/12/16 17:12 (Apresoline) 25 mg QID PO 07/10/16 21:00 07/12/16 19:55 A/P Problem List: (1) Hyperkalemia Status: Acute (2) Edema Status: Acute (3) ESRD (end stage renal disease) Status: Acute (4) Hepatitis C Status: Acute (5) Acidosis, metabolic Status: Acute (6) Cholelithiasis Status: Acute (7) Dizziness Status: Acute (8) Essential hypertension Status: Chronic (9) Anemia Status: Chronic (10) Generalized weakness Status: Acute (11) Diabetes mellitus type 2 in nonobese Status: Chronic (12) Encephalopathy Status: Acute Plan: PLAN: PT REFUSING LABS AND CARE. EXPECT PASSING SOON WITHOUT FURTHER WORKUP. HOSPICE CONSULT. CONSULTS TO PALLIATIVE CARE, DR YEE NEPHROLOGY SIGNED OFF. SEE MY ORDERS PLEASE. Problem Qualifiers (1) Hepatitis C: Titus Villagomez MD Jul 13, 2016 09:25
[2016-07-13 13:00] VITALS: BP 158/72; PULSE 64; RESP 19; TEMP 97.4; O2SAT 94
[2016-07-13] MEDS ORDERED: MORPHINE SULFATE 4 MG/ML INJ IV PUSH PRN (13:45)
[2016-07-13] MEDS ORDERED: MORPHINE SULFATE 4 MG/ML INJ IV PUSH ONE ×2 (14:00→19:00)
--- NOTE | 2016-07-13 17:10 | PD.CONS ---
History of Present Illness Consult Requested By Dr. Villagomez Primary Care Physician Lauro Alejandro MD Diagnoses: History of Present Illness Patient is a 80-year-old male with past medical history significant for CKD, hyperkalemia, and BL LE edema presenting due to Hyperkalemia. He has his labs drawn and potassium was found to be elevated to 7.0. He was emergently treated and is now refusing all recommended treatments including dialysis. He is also refusing lab draws. He endorses lower extremity pain, he is unable to provide any additional details to describe the pain. He strongly opposes being repositioned as this will exacerbate his pain. He denies any other complains at this time. (Lauro Alejandro MD R2) Review of Systems Constitutional: DENIES: Fever, Chills Eyes: DENIES: Vision loss Ears, nose, mouth, throat: COMPLAINS OF: Hearing loss Respiratory: DENIES: Shortness of breath Cardiovascular: DENIES: Chest pain Gastrointestinal: DENIES: Abdominal pain Genitourinary: DENIES: Dysuria Musculoskeletal: COMPLAINS OF: Joint pain, Muscle aches, Stiffness Neurologic: DENIES: Headache Psychiatric: DENIES: Mood changes (Lauro Alejandro MD R2) Past Family Social History Allergies: Coded Allergies: Lisinopril (Verified Allergy, Severe, 07/10/16) Metformin (Verified Allergy, Severe, 07/10/16) Past Medical History - HTN - well controlled - T2DM - well controlled - idiopathic CKD diagnosed about 4 years ago - 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 - Anemia Past Surgical History Pt denies any previous surgeries Reported Medications Reported Meds & Active Scripts Active Gabapentin 100 Mg Cap 100 Mg PO DAILY PRN Calcium Carbonate (Antacid) 500 Mg Chew 500 Mg CHEW Q12HR Calcium Acetate (Calcium Acetate (Phosphate Bin) 667 Mg Cap 667 Mg PO TID Rocaltrol (Calcitriol) 0.25 Mcg Cap 0.25 Mcg PO DAILY Furosemide 20 Mg Tab 20 Mg PO BID@,18 Hydralazine (Hydralazine HCl) 25 Mg Tab 25 Mg PO QID Reported [place]scal 500/200 D-3 (Calcium Carbonate-Vitamin D) 500-200 Mg-Unit Tab 1 Tab PO DAILY Aspirin 81 Mg Tabdr 81 Mg PO DAILY Family History Pt reports that his parents from old age Social History Pt lives at home alone. Originally from [place]. 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 Smoked about 1ppd of cigarettes for about 10 yrs about 50 years ago. Denies current tobacco use, alcohol, or illicit drug use. (Lauro Alejandro MD R2) Physical Exam Vital Signs Vital Signs Date Time Temp Pulse Resp B/P Pulse Ox O2 Delivery O2 Flow Rate FiO2 07/13/16 13:00 97.4 64 19 158/72 94 07/13/16 12:00 07/13/16 08:00 07/13/16 06:15 95 07/13/16 00:00 98.4 74 18 147/74 97 07/12/16 21:09 98.0 68 18 141/68 98 Physical Exam GENERAL: male lying in bed in NAD. SKIN: hyperkeratotic hyperpigmented lesions present over knuckles of both hands , and on lateral aspect of bilateral lower extremities HEAD: Atraumatic. Normocephalic. EYES: Pupils equal round and reactive. Extraocular motions intact. No scleral icterus. No injection or drainage. ENT: MMM. poor dentition. no erythema noted. Airway patent. NECK: Trachea midline. Supple, nontender, no meningeal signs. No thyromegaly appreciated. CARDIOVASCULAR: Regular rate and rhythm without murmurs, gallops, or rubs. No JVD. RESPIRATORY: Clear to auscultation. Breath sounds equal bilaterally. No wheezes , rales, or rhonchi. GASTROINTESTINAL: Abdomen soft, non-tender, nondistended. MUSCULOSKELETAL: 2+ non pitting edema to knees of bilateral lower extremities. No foot ulcers. Skin findings as above. NEUROLOGICAL: Awake and alert. CN's intact. Cognitively sharp. Patient declines any type of movement. Laboratory Date/Time Procedure Status Source Growth 07/10/16 20:50 Aerobic Blood Culture - Preliminary Resulted Blood Peripheral Staph Sp Coagulase Negative 07/10/16 20:50 Anaerobic Blood Culture - Preliminary Resulted Blood Peripheral NO GROWTH IN 3 DAYS (Lauro Alejandro MD R2) Result Diagram: 07/10/16171407/10/161714 Assessment and Plan Problem List: (1) Hyperkalemia Status: Acute Plan: On admission potassium elevated to 7. -Patient has denied lab draws which has prevented reevaluation of corrected potassium. (2) Generalized weakness Status: Acute Plan: Patient with history of generalized weakness and a left foot abnormalities. Patient was previously discharged to a intermediate facility for rehabilitation and physical therapy. -Patient has refused physical therapy, lab draws, medications. -Regaining his strength/mobility does not seem to be his priority at this time (3) CKD (chronic kidney disease), stage V Status: Acute Plan: Patient CKD currently presenting with electrolyte abnormalities likely contributing to his generalized weakness. Nephrology was consulted and has currently signed off Dialysis was recommended but patient refuses this option Encourage by mouth intake Monitor and replete electrolytes (4) Lower extremity pain Status: Acute Plan: -Morphine and [place] when necessary (5) Leg edema Status: Resolved Plan: Patient with chronic lower extremity edema that has slightly improved with diuresis. -Consider resuming Lasix (6) Essential hypertension Status: Chronic Plan: Hydralazine 25 mg po QID (7) FEN/PPX Status: Acute Plan: Fluids: Sodium bicarbonate 42 mL's/hour Electrolytes: Patient refusing lab draws, unable to monitor Nutrition: Renal diet DVT prophylaxis: Heparin 5000 units Q12hrs Assessment and Plan Patient is a 80-year-old female past medical history significant for CAD, lower extremity edema, hypertension presenting due to hyperkalemia currently refusing all treatments, vitals, lab draws. Hospice and palliative care have been consulted to clarify goals. Discussed Condition With sdw Dr. Aileen Hanks Discharge Planning Anticipate discharge to hospice. (Lauro Alejandro MD R2) Discussed Condition With The patient has been seen and examined. The chart and all resident notes have been reviewed. I agree that inpatient care is appropriate and that a two midnight stay is expected for the reasons documented in the resident history and physical. I have discussed this with the resident and certify the resident s order for inpatient admission. Patient seen and examined. Case reviewed and discussed Agree with plan of care as discussed with me and documented in the resident note. (Antonieta Hanks MD) Lauro Alejandro MD R2 Jul 13, 2016 17:10 Antonieta Hanks MD Aug 01, 2016 16:56
[2016-07-13] MEDS ORDERED: SODIUM POLYSTYRENE SULFONATE SUSP 15 GM/60 ML CUP PO ONE (17:15)
--- NOTE | 2016-07-13 18:38 | HHI.DCPOC ---
Discharge Care Plan Diagnosis: (1) Generalized weakness (2) CKD (chronic kidney disease), stage V (3) Acute worsening of stage 4 chronic kidney disease (4) Chronic Renal Failure / insufficiency, unspec (5) Hyperkalemia (6) Metabolic acidosis (7) Leg edema (8) Encephalopathy Goals to Promote Your Health * To prevent worsening of your condition and complications, please allow health care team to monitor your blood work with laboratory analysis and adjust your medications and nutritional and electrolyte supplements. * To maintain your comfort at the optimal level, trust the hospice care team. Directions to Meet Your Goals Take your medications as prescribed Follow your dietary instruction Follow activity as directed Keep your appointments as scheduled Take your immunizations and boosters as scheduled If your symptoms worsen call your PCP, if no PCP go to Urgent Care Center or Emergency Room Smoking is Dangerous to Your Health. Avoid second hand smoke Call the 24-hour hour crisis hotline for domestic abuse at Pk Gallagher MD R1 Jul 13, 2016 18:38
[2016-07-13] MEDS ORDERED: LORazepam 1 MG TAB PO PRN (19:00)
[2016-07-13] MEDS ORDERED: ACETAMINOPHEN/HYDROcodone 325 MG/10 MG TAB PO PRN (19:00)
[2016-07-13] MEDS ORDERED: MORPHINE SULFATE 4 MG/ML INJ IM PRN (19:00)
== END 2016-07-14 00:05 | disposition hospice, inpatient (51) | DRG 682 ==
LOC: NEPC 16:45 → INTOOBSV 18:16 → NEDA 18:16 → UNDOADMOB 18:16 → NEDH 18:16 → NEPFCDU 07-11 14:18 → OBSVTOIN 07-12 12:38
PROVIDERS: ADMIT Family Medicine; ATTEND Family Medicine
DX: I12.0 Hypertensive chronic kidney disease with stage 5 chronic kidney disease or end stage renal disease (principal); G93.40 Encephalopathy, unspecified; N17.9 Acute kidney failure, unspecified; N18.6 End stage renal disease; E87.5 Hyperkalemia; E11.22 Type 2 diabetes mellitus with diabetic chronic kidney disease; D64.9 Anemia, unspecified; Z66 Do not resuscitate; Z87.891 Personal history of nicotine dependence
CPT/HCPCS: 71010; 80053; 81001; 82948; 83735; 84100; 85007; 85027; 85610; 85730; 87040; 87077; 87186; 87205; 93005; C9113; G8987-GO; G8987-GP; G8988-GO; G8988-GP; G8996-GN; G8997-GN; G8998-GN; J0696; J1644; J1815; J2270